=== PATIENT | female | born 1935 | race Caucasian/White ===

== ENCOUNTER 2016-07-04 11:26 | Inpatient (IN) | payer MEDICARE, BC, MEDICAID ==
[~2016-07-04] VITALS: Ht 160 cm; Wt 59.9 kg
--- OUTSIDE RECORDS SUMMARY | 2016-07-04 11:37 | XMS REPORT | Continuity of Care Document ---
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, WITHOUT MENTION OF HAVING ACHIEVED REMISSION 12/05/2011 W 585.4 CHRONIC KIDNEY DISEASE, STAGE IV (SEVERE) 12/05/2011 W 789.04 ABDOMINAL PAIN, LEFT LOWER QUADRANT 05/04/2013 Octaviano Schulz, Inessa W 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 05/04/2013 Octaviano Schulz, Inessa W 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 05/04/2013 Ocatviano Schulz, Inessa Delarosa 290.0 SENILE DEMENTIA, UNCOMPLICATED 05/04/2013 Octaviano Schulz, Inessa W 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 05/04/2013 Octaviano cShulz, Inessa W 290.0 SENILE DEMENTIA, UNCOMPLICATED 05/06/2013 Octaviano Schulz, Inessa Delarosa 290.0 SENILE DEMENTIA, UNCOMPLICATED 05/06/2013 Octaviaon Schulz, Inessa W 290.0 SENILE DEMENTIA, UNCOMPLICATED 06/08/2013 Octaviano Schulz, Inessa W 585.9 CHRONIC KIDNEY DISEASE, UNSPECIFIED 06/09/2013 TEO Trotter William W 789.0 ABDOMINAL PAIN 06/09/2013 TEO Trotter William W 789.0 ABDOMINAL PAIN 07/25/2013 TEO Trotter William W 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 07/25/2013 TEO Trotter William W 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 07/26/2013 TEO Trotter, Aime W 599.0 URINARY TRACT INFECTION, SITE NOT SPECIFIED 07/29/2013 TEO Trotter, Aime Delarosa 562.10 DIVERTICULOSIS OF COLON (WITHOUT MENTION OF HEMORRHAGE) 07/29/2013 TEO Trotter, Aime Delarosa 787.3 FLATULENCE, ERUCTATION, AND GAS PAIN 07/29/2013 TEO Trotter William W 789.07 ABDOMINAL PAIN, GENERALIZED 08/08/2014 TEO Trotter, Aime Delarosa 401.9 UNSPECIFIED ESSENTIAL HYPERTENSION 08/08/2014 TEO Trotter William W 401.9 UNSPECIFIED ESSENTIAL HYPERTENSION Procedures Results Test Result Range Basic Metabolic Panel - 05/06/13 09:34 glucose 145 mg/dl 70-110 Basic Metabolic Panel 18 mg/dL <23 Comp Metabolic Panel 29.0 see below > 60.0 Renal Panel 10.0 Ratio 7.0-25.0 Liver or Hepatic Panel 142 mmol/L 135- 146 Acetest 9.0 mg/dL 8.4-10.5 Creatinine QC. 1.8 mg/dL <1.3 Potassium 4.1 mmol/L 3.4-5.0 Chloride 105 mmol/L 98-108 ECO2 27 mmol/L 23-33 Anion Gap 14.1 mmol/L 10.0-18.0 Comp Metabolic Panel - 07/25/13 11:47 Lytes Panel 137 mg/dL 70-112 Basic Metabolic Panel 18 mg/dL <23 Comp Metabolic Panel 33.1 see below > 60.0 Renal Panel 11.3 Ratio 7.0-25.0 Liver or Hepatic Panel 142 mmol/L 135- 146 Acetest 9.1 mg/dL 8.4-10.5 BUN 6.8 g/dL 6.1-8.1 Creatinine 3.9 g/dL 3.3-4.8 Sodium 2.9 g/dL 1.1-4.7 Potassium 1.3 Ratio 0.7-4.5 CO2 14 U/L 0-40 Calcium 22 U/L 0-60 Phosphorus 89.0 U/L 40.0-140.0 Uric Acid 1.6 mg/dL 0.0-1.3 Creatinine QC. 1.6 mg/dL <1.3 Potassium 4.4 mmol/L 3.4-5.0 Chloride 106 mmol/L 98-108 ECO2 27 mmol/L 23-33 Anion Gap 13.4 mmol/L 10.0-18.0 CBC - 07/25/13 11:47 CBC 22.2 K/UL 4.1-10.9 WBC 162 K/UL 140-440 Platelet Count 92.5 FL 80.0-97.0 Manual Differential 32.1 pg 26.0-34.0 RBC 3.99 M/ul 4.20-6.30 HGB 12.8 g/dl 12.0-18.0 HCT 36.90 % 37.00-51.00 MCHC 34.8 g/dL 31.0-36.0 RDW 13.0 % 10.0-20.0 MPV 7.8 FL NEUT % 27.9 % 50.0-80.0 LYM % 66.7 % 25.0-50.0 MONO % 3.5 % 0.0-10.0 NEUT # 6.2 K/UL 2.0-8.0 LYM # 14.8 K/UL 1.0-5.0 MONO # 0.8 K/UL 0.1-1.0 EOS # 0.1 K/UL 0.0-0.4 EOS % 0.4 K/UL BASO # 0.3 K/UL 0.0-0.2 BASO % 1.5 K/UL Comp Metabolic Panel - 08/08/14 10:15 Lytes Panel 147 mg/dL 70-112 Basic Metabolic Panel 20 mg/dL <23 Comp Metabolic Panel 33.0 see below > 60.0 Renal Panel 12.5 Ratio 7.0-25.0 Liver or Hepatic Panel 140 mmol/L 135- 146 Acetest 8.8 mg/dL 8.4-10.5 BUN 6.7 g/dL 6.1-8.1 Creatinine 3.8 g/dL 3.3-4.8 Sodium 2.9 g/dL 1.1-4.7 Potassium 1.3 Ratio 0.7-4.5 CO2 22 U/L 0-40 Calcium 23 U/L 0-60 Phosphorus 85.0 U/L 40.0-140.0 Uric Acid 1.3 mg/dL 0.0-1.3 Creatinine QC. 1.6 mg/dL <1.3 Potassium 4.1 mmol/L 3.4-5.0 Chloride 105 mmol/L 98-108 ECO2 27 mmol/L 23-33 Anion Gap 12.1 mmol/L 10.0-18.0 CBC - 08/08/14 10:15 CBC 24.3 K/UL 4.1-10.9 WBC 142 K/UL 140-440 Platelet Count 89.3 FL 80.0-97.0 Manual Differential 32.2 pg 26.0-34.0 RBC 4.11 M/ul 4.20-6.30 HGB 13.2 g/dl 12.0-18.0 HCT 36.70 % 37.00-51.00 MCHC 36.0 g/dL 31.0-36.0 RDW 12.2 % 10.0-20.0 MPV 7.9 FL NEUT % 20.8 % 50.0-80.0 LYM % 74.5 % 25.0-50.0 MONO % 2.4 % 0.0-10.0 NEUT # 5.1 K/UL 2.0-8.0 LYM # 18.1 K/UL 1.0-5.0 MONO # 0.6 K/UL 0.1-1.0 EOS # 0.1 K/UL 0.0-0.4 EOS % 0.4 K/UL BASO # 0.5 K/UL 0.0-0.2 BASO % 1.9 K/UL Encounters ACCT No. Visit Date/Time Discharge Status Pt. Type Provider Facility Loc./Unit Complaint [id number] 07/03/2016 13:08:00 07/03/2016 23: 59:00 DIS Outpatient STALIN FLORES [id number] 06/13/2016 09:57:00 06/13/2016 23: 59:00 DIS Outpatient STALIN FLORES [id number] 06/11/2016 07:20:00 06/11/2016 23: 59:00 DIS Outpatient STALIN FLORES [id number] 06/04/2016 11:11:00 06/04/2016 23: 59:00 DIS Outpatient TEO Trotter William [id number] 05/22/2016 09:28:00 05/22/2016 23: 59:00 DIS Outpatient STALIN FLORES [id number] 05/21/2016 19:20:00 05/21/2016 21: 10:00 DIS Outpatient Royer Menjivar [id number] 03/28/2016 11:47:00 03/28/2016 23: 59:00 DIS Outpatient MARKSTALIN [id number] 03/13/2016 14:30:00 03/13/2016 16: 22:00 DIS Outpatient MARKSTALIN [id number] 01/01/2016 13:47:00 01/01/2016 13: 49:00 DIS Outpatient Elicia Cornejo Harley [id number] 01/01/2016 13:40:00 01/01/2016 13: 40:00 CAN Outpatient Elicia Cornejo Harley [id number] 10/11/2015 09:00:00 10/11/2015 09: 05:00 DIS Outpatient STALIN FLORES [id number] 06/22/2015 08:01:00 06/22/2015 23: 59:00 DIS Outpatient TEO Trotter William [id number] 02/08/2015 08:45:00 02/08/2015 23: 59:00 DIS Outpatient TEO Trotter William [id number] 08/08/2014 10:05:00 08/08/2014 23: 59:00 DIS Outpatient TEO Trotter William [id number] 07/26/2013 10:27:00 07/26/2013 23: 59:00 DIS Outpatient TEO Trotter William [id number] 07/25/2013 11:41:00 07/25/2013 23: 59:00 DIS Outpatient TEO Trotter William [id number] 06/09/2013 11:15:00 06/09/2013 23: 59:00 DIS Outpatient TEO Trotter William [id number] 05/06/2013 09:15:00 05/06/2013 23: 59:00 DIS Outpatient Octaviano Schulz, Inessa [id number] 05/04/2013 14:16:00 05/04/2013 23: 59:00 DIS Outpatient Octaviano Schulz Barbara-Jean [id number] 07/04/2016 08:14:00 ACT Outpatient STALIN FLORES [id number] 12/05/2011 10:19:00 Document Registration
[2016-07-04] MEDS ORDERED: LORA-204 PO (12:00)
[2016-07-04] MEDS ORDERED: VITA1TAB21 SL (12:00)
[2016-07-04] MEDS ORDERED: CITA40TA14 PO (12:00)
[2016-07-04] MEDS ORDERED: POLY119P3 PO ×2 (12:04→12:08)
[2016-07-04] MEDS ORDERED: QUET25TA PO ×2 (12:04→12:08)
[2016-07-04] MEDS ORDERED: MAG360OR92 PO (12:04)
[2016-07-04] MEDS ORDERED: LORA2VIA34 IM (12:04)
[2016-07-04] MEDS ORDERED: GUAI237L83 PO (12:08)
[2016-07-04] MEDS ORDERED: ACET-62 PO (12:08)
[2016-07-04] MEDS ORDERED: LORA1TAB3 PO (12:08)
--- OUTSIDE RECORDS SUMMARY | 2016-07-04 12:08 | XMS REPORT | Continuity of Care Document ---
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 Type Provider Facility Loc./Unit Complaint [id number] 07/03/2016 13:08:00 07/03/2016 23: 59:00 DIS Outpatient STALIN FLORES [id number] 06/13/2016 09:57:00 06/13/2016 23: 59:00 DIS Outpatient STALIN FLORES [id number] 06/11/2016 07:20:00 06/11/2016 23: 59:00 DIS Outpatient STALIN FLORES [id number] 06/04/2016 11:11:00 06/04/2016 23: 59:00 DIS Outpatient TEO Trotter William [id number] 05/22/2016 09:28:00 05/22/2016 23: 59:00 DIS Outpatient STALIN FLORES [id number] 05/21/2016 19:20:00 05/21/2016 21: 10:00 DIS Outpatient Royer Menjivar [id number] 03/28/2016 11:47:00 03/28/2016 23: 59:00 DIS Outpatient MARKSTAILN [id number] 03/13/2016 14:30:00 03/13/2016 16: 22:00 DIS Outpatient MARKSTALIN [id number] 01/01/2016 13:47:00 01/01/2016 13: 49:00 DIS Outpatient Elicia Cornejo Harley [id number] 01/01/2016 13:40:00 01/01/2016 13: 40:00 CAN Outpatient Elicia Cornejo Harley [id number] 10/11/2015 09:00:00 10/11/2015 09: 05:00 DIS Outpatient STALIN FLORES [id number] 06/22/2015 08:01:00 06/22/2015 23: 59:00 DIS Outpatient TEO Trotter William [id number] 02/08/2015 08:45:00 02/08/2015 23: 59:00 DIS Outpatient TEO Trotter William [id number] 08/08/2014 10:05:00 08/08/2014 23: 59:00 DIS Outpatient TEO Trotter William [id number] 07/26/2013 10:27:00 07/26/2013 23: 59:00 DIS Outpatient TEO Trotter William [id number] 07/25/2013 11:41:00 07/25/2013 23: 59:00 DIS Outpatient TEO Trotter William [id number] 06/09/2013 11:15:00 06/09/2013 23: 59:00 DIS Outpatient TEO Trotter William [id number] 05/06/2013 09:15:00 05/06/2013 23: 59:00 DIS Outpatient Octaviano Schulz, Inessa [id number] 05/04/2013 14:16:00 05/04/2013 23: 59:00 DIS Outpatient Octaviano Schulz Barbara-Jean [id number] 07/04/2016 08:14:00 ACT Outpatient STALIN FLORES [id number] 12/05/2011 10:19:00 Document Registration
[2016-07-04] MEDS ORDERED: VITAMIN B COMPLEX SL (12:10)
[2016-07-04] MEDS ORDERED: ZIPRASIDONE 20 MG IM PRN (12:15)
[2016-07-04 12:34] LABS: HCT - HEMATOCRIT 41.4 % (36-46); HGB - HEMOGLOBIN 13.6 GM/DL (12-16); MEAN CORPUSCULAR HGB 30.3 UUG (26-34); MEAN CORPUSCULAR HGB CONC(MCHC 32.9 GM/DL (31-37); MEAN CORPUSCULAR VOLUME 92.2 UM3 (80-100); MEAN PLATELET VOLUME 10.1 UM3 (9.4-12.4); RED BLOOD COUNT 4.49 M/MM3 (4.00-5.20)
[2016-07-04 12:45] LABS: ACETAMINOPHEN < 10 UG/ML (10-30); ALBUMIN 4.6 G/DL (3.5-5.0); ALBUMIN/GLOBULIN RATIO 1.9 RATIO (1.1-2.2); ALKALINE PHOSPHATASE 76 U/L (38-126); ALT (SGPT) 39 U/L (9-52); ANION GAP 14 MEQ/L (5-15); AST (SGOT) 30 U/L (14-36); BUN/CREATININE RATIO 12 RATIO (6-26); CALCIUM 9.9 MG/DL (8.4-10.2); CHLORIDE 108 MEQ/L (98-107); CO2 - CARBON DIOXIDE 24 MEQ/L (22-30); CREATININE 1.4 MG/DL (0.7-1.2); ETHANOL <10 MG/DL (<10); GLOMERULAR FILTRATION RATE 36; GLUCOSE 102 MG/DL (65-110); POTASSIUM 4.6 MEQ/L (3.6-5); SALICYLATE < 1.0 MG/DL (2-20); SODIUM 146 MEQ/L (134-144)
--- NOTE | 2016-07-04 12:45 | NUR ---
UPDATE PATIENT IS BECOMING MORE CALM AND COOPERATIVE. PATIENT REFUSES TO USE RESTROOM AT THIS TIME HOWEVER. RESTRAINTS REMOVED.
[2016-07-04 12:50] LABS: EOSINOPHILS # (MANUAL) 0.3 T/MM3 (0-0.5); LYMPHOCYTES # (MANUAL) 8.5 T/MM3 (1-4.8); METAMYELOCYTES # 0.2 T/MM3; MONOCYTES # (MANUAL) 0.7 T/MM3 (0-0.8); NEUTROPHILS #(MANUAL)-ABSOLUTE 7.3 T/MM3 (1.8-7.7); TOTAL CELLS COUNTED 100 %
--- NOTE | 2016-07-04 12:57 | NUR ---
RADIOLOGY RADIOLOGY AT BEDSIDE FOR PORTABLE CXR
--- NOTE | 2016-07-04 13:13 | NUR ---
UPDATE PATIENT LYING IN BED SLEEPING SOUNDLY, SITTER REMAINS AT BEDSIDE.
--- NOTE | 2016-07-04 13:19 | DI ---
Indication: ITS.REASON: ms changes PROCEDURE: CHEST 1 VIEW: Encounter: Initial Comparison: None FINDINGS: The lungs are clear. There is no abnormal airspace opacity, pleural effusion or pneumothorax identified. The heart size, pulmonary vasculature and mediastinum are within normal limits. No significant skeletal abnormality is seen. IMPRESSION: No acute cardiopulmonary abnormality. .
[2016-07-04 13:40] LABS: THYROID STIM HORMONE-TSH 3.55 MIU/L (0.47-4.68)
[2016-07-04 13:47] LABS: BLOOD, URINE NEGATIVE (NEGATIVE); COLOR,URINE YELLOW (YELLOW); LEUKOCYTE ESTERASE ,URINE NEGATIVE (NEGATIVE); NITRITE,URINE NEGATIVE (NEGATIVE); UROBILINOGEN,URINE 0.2 EU/DL (NORMAL)
[2016-07-04 13:57] LABS: AMPHETAMINE SCREEN,URINE NEGATIVE; BARBITURATE SCREEN,URINE NEGATIVE; BENZODIAZEPINES SCREEN,URINE POSITIVE; CANNABINOID SCREEN,URINE NEGATIVE; COCAINE SCREEN,URINE NEGATIVE; METHADONE SCREEN, URINE NEGATIVE; METHAMPHETAMINE SCREEN, URINE NEGATIVE; OPIATE SCREEN,URINE NEGATIVE; PHENCYCLIDINE SCREEN,URINE NEGATIVE; TRICYCLIC ANTIDEPRESSANT,URINE POSITIVE
--- NOTE | 2016-07-04 14:00 | NUR ---
PM[facility] UNABLE TO OBTAIN ACCURATE PAST MEDICAL HX D/T PATIENT MENTAL STATUS.
--- NOTE | 2016-07-04 14:03 | NUR ---
UPDATE PATIENT LYING IN BED RESTING QUIETLY/CALMLY. SITTER AT BEDSIDE.
[2016-07-04] MEDS ORDERED: HALOPERIDOL 5 MG/ML INJECTION IM ONE (14:30)
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
--- NOTE | 2016-07-04 15:00 | NUR ---
ADMIT PATIEN TAKEN TO [facility] VIA CART,STABLE. BELONGINGS WITH PATIENT.
--- NOTE | 2016-07-04 15:00 | NUR ---
ADMISSION Pt is an 81 year old female admitted to the [facility] room 195 from [facility] Pt was brought to the [facility] ED for medical clearance. Pt was accompanied onto the unit by 2 [facility] staff and was lethargic upon arrival. Pt had received PRN medications in the ED for her aggressive/combative behavior. Pt arrived dressed appropriately for conditions although her clothes nor her person were clean and her finger nails were over grown. Staff cut her nails on arrival and wanted to wait until she was more alert for her shower. Pt has no visible skin wounds upon assessment and no valuables on her person. Pt was asked why she thought that she was admitted to the unit, the patient was unable to respond but with minimal cussing at staff. Pt is currently in bed sleeping with side rails up x3 and bed alarm activated
[2016-07-04] MEDS ORDERED: HALOPERIDOL 5 MG/ML INJECTION IM PRN (16:00)
[2016-07-04] MEDS ORDERED: LORAZEPAM 1 MG TABLET PO PRN (16:00)
[2016-07-04] MEDS ORDERED: LORAZEPAM 2 MG/ML INJECTION IM PRN (16:00)
[2016-07-04] MEDS ORDERED: PRN ORDERS MC (16:00)
[2016-07-04 16:19] VITALS: BP 149/95; PULSE 64; RESP 16; TEMP 97.2; O2SAT 94
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
[2016-07-04 16:35] VITALS: RESP 16
[2016-07-04 17:42] VITALS: Ht 160 cm; Wt 59.9 kg
--- NOTE | 2016-07-04 18:07 | NUR ---
Smoking status Pt is a non smoker.
[2016-07-04 19:32] VITALS: PULSE 64; RESP 16; O2SAT 94
--- NOTE | 2016-07-04 20:15 | NUR ---
Bedtime/ Spit meds Pt assist x 2 to shower. Pt resistive but not combative while showering. Pt a pivot/transfer x 2 to wheelchair and then pivot/transfer to bed. Pt sleeping with bed alarm on and call light in reach. Pt spit out HS meds. Will continue to monitor.
[2016-07-04] MEDS: LORAZEPAM 1 MG TABLET PO SCH (21:00)
[2016-07-04] MEDS: QUETIAPINE 25 MG TABLET PO SCH (21:00)
[2016-07-04 22:10] VITALS: PULSE 64; RESP 16
[2016-07-04 22:26] VITALS: BP 162/83; PULSE 55; RESP 16; TEMP 96.9; O2SAT 98
--- NOTE | 2016-07-05 01:23 | NUR ---
Chart Check 24 hour chart check completed
--- NOTE | 2016-07-05 02:03 | NUR ---
past medical history See Past Medical History generations assessment for history done per papers faxed from [facility]. Pt is positive for chronic kidney disease, cerebrovascular accident, HTN, irritable bowel syndrome, dementia, chronic lymphocytic leukemia, sleep apnea, 1, para 1, cholecystectomy, right total knee, tonsillectomy and adenoidectomy.
[2016-07-05] MEDS: LORAZEPAM INTENSOL 1mg/0.5ml ORAL SOLUTION SL PRN (04:17)
--- NOTE | 2016-07-05 04:17 | NUR ---
PRN / bladder scan 630ml/ bladder scan order Pt given ativan intensol 1mg po at this time. Pt awake and restless, Pt hasn't voided since admission 1500 07/04. Pt bladder scanned and 630ml on scanner. Pt taken to bathroom with assist x 3, Pt pinching staff boob, and squeeze our hands and verbally aggressive stating, "Go away, I want my mom" Pt sarcastic, "You just go to the bathroom you pooper kedar steen." Pt to toilet and Pt unsteady and then sat on toilet but needed hand on shoulder to help Pt stay on toilet. Pt told many different ways to pee in the potty and Pt upregulated that she wouldn't relax to pee. Pt then standing in bathroom and hands taken off of Pt but Pt leaned up against wall and wouldn't go lay down or move. Pt then distracted by talking about her 4 kids and how busy she was. Able to get brief pulled up and in bed, Pt more down regulated when talking about her, but once in bed Pt up regulated again and attempting to call staff names. Pt bed alarm on and bed locked and low, and Pt left alone for 10 minutes, but still restless and uncomfortable. [place] text done about bladder, and order for bladder scan. Ativan given to help with less trauma before striaght cath and lab draw. Will continue to monitor.
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
--- NOTE | 2016-07-05 07:15 | NUR ---
Summary Pt went back to sleep after straight cath, and resting quietly. Pt slept 7.5 hours and continues to sleep. Pt allowed lab to draw blood. Ativan continues to be effective. Pt hasn't screamed at night except when changing her and touching her. Pt verbally and physically aggressive during cares and can self regulate better when not touched, but Pt very unsteady when standing. Will continue to monitor. Call light in reach. Bed locked and low. Bed alarm on.
[2016-07-05] MEDS: POLYETHYL.GLYCOL 3350 PACKET 17gm PO SCH (09:00)
[2016-07-05] MEDS: LORAZEPAM 1 MG TABLET PO SCH ×2 (09:00→21:24)
[2016-07-05] MEDS: VITAMIN B COMP + C TABLET PO SCH (09:00)
[2016-07-05] MEDS: QUETIAPINE 25 MG TABLET PO SCH (09:00)
[2016-07-05 10:41] VITALS: PULSE 72
--- NOTE | 2016-07-05 10:53 | NUR ---
pt refusing to get oob at this time. mumbles speech not appropriate to questions asked. pt turned to left side. self positioned to back again. will check again frequently
--- NOTE | 2016-07-05 11:15 | NUR ---
pts did call to check up on . requested to visit pt. tomorrow afternoon at some point. he states that he and his have been for 50years and he is very appreciative of the care we are giving her.
--- NOTE | 2016-07-05 11:46 | NUR ---
pt refusing VS. will not allow anyone to touch her and is combative to staff when touched. will attempt to get VS again
--- NOTE | 2016-07-05 13:27 | NUR ---
pt tearful. RNX2 with a BARREL DEDENTING MACHINE OPERATOR did assist pt. out of bed and to lunch. Pt was combative and stiff once. did follow directions at times. she is taking small amount of food with assistance at this time.
--- NOTE | 2016-07-05 14:38 | GENHPPDOC ---
[facility] 07/05/16 Start Time: 11:20 Stop Time: 12:00 >50% of this visit spent in counseling/coordination care. Chief Complaint: Aggression History of Present Illness Patient is an 81-year-old female who was admitted to [facility] [place] on 07/04/16 from her LTC facility in [place]. Patient's Chriss is DPOA ([phone]). Patient was recently placed in LTC due to progression of her dementia, previously residing with her . Facility reports over past 2 weeks patient has become increasingly agitated, combative and resistive with cares. She has not showered in over 3 weeks. She is verbally and physically aggressive , with limited verbal communication skills. No change in sleep or appetite reported. Patient received multiple PRNs in ED and was reportedly sedated last night on the unit. She did allow hygienic cares, lab draws, EKG etc. at that time. On interview today, patient is lying in bed and is restless, tugging at sheet, with significant tremor in hands bilaterally. She is easily tearful and cannot answer any questions meaningfully. Ox1 only. Patient did require straight cath for urine retention this AM and received Ativan 0.5mg prn prior. I cannot obtain further history of past psych history from patient at this time. Dementia: memory impairment, poor executive function., other (physical and verbal aggression, limited verbal ability) Past Medical History Unable to Obtain Due to: Clinical Condition Past Medical History Patient's Medical History: (1) CKD (chronic kidney disease), stage III (2) CVA (cerebral vascular accident) (3) Hypertension (4) Irritable bowel syndrome (5) Chronic lymphocytic leukemia (6) Sleep apnea (7) Dementia (8) Anxiety Surgical History Patient's Surgical History: Cholecystectomy. Right total knee replacement. Tonsillectomy and adenoidectomy Current Medications Home Meds Reported Medications [Vitamin B Complex] No Conflict Check, 1 ML SL DAILY 07/04/16 Acetaminophen (Acetaminophen) 500 Mg Tablet, 1000 MG PO Q6H Y for PAIN 07/04/16 Polyethylene Glycol 3350 (Miralax) 119 Gm Powder, 17 G PO DAILY Y for CONSTIPATION 07/04/16 Lorazepam (Lorazepam) 1 Mg Tablet, 1 TAB PO Q4H Y for AGITATION 07/04/16 Quetiapine Fumarate (Seroquel) 25 Mg Tablet, 25 MG PO BID 07/04/16 Lorazepam (Ativan) 2 Mg/1 Ml Vial, 1 MG IM DAILY Y for AGITATION 07/04/16 Quetiapine Fumarate (Seroquel) 25 Mg Tablet, 25 MG PO DAILY Y for AGITATION 07/04/16 Mag Hydrox/Al Hydrox/Simeth (Alum-Mag Hydroxide-Simeth Liq) 360 Ml Oral.susp, 15 -30 ML PO Q4H Y for PRN ORDERS 07/04/16 Polyethylene Glycol 3350 (Miralax) 119 Gm Powder, 17 G PO DAILY 07/04/16 Lorazepam (Ativan) 1 Mg Tablet, 1 MG PO BID TAKE @ 0700 & 1500 07/04/16 Citalopram Hydrobromide (Celexa) 40 Mg Tablet, 40 MG PO DAILY 07/04/16 Allergies: Coded Allergies: ARUNA Inhibitors (Verified Allergy, Unknown, 07/04/16) Family History Family History: Unknown, patient unable to provide. Vaccines Social History Smoking Status: Never smoker Substance Use Type: does not use Alcohol Intake: none Marital Status: Advance Directives: Yes DPOA for Healthcare Only Strengths: placement in place, family support Review of Systems Unable to Obtain ROS Due to: language barrier, dementia Psychiatric Psychiatric: emotional instability, irritability, memory impairment Generations Exam Vitals Vital Signs Date Time Temp Pulse Resp B/P Pulse Ox O2 Delivery O2 Flow Rate FiO2 07/04/16 22:26 96.9 55 16 162/83 98 Room Air Physical examination performed by the hospitalist. Height (Feet): 5 Height (Inches): 3.00 Mental Status Exam Muscle Strength/Tone: Normal Dressing: Casual Grooming: Poor Attitude: Combative Motor Activity: Tremors (significant in hands bilaterally), Restless Eye Contact: Poor Speech: Slowed Volume: Soft Rhythm: Mumbled Sensory: Alert Orientation: Disoriented to time, Disoriented to place, Disoriented to situation, Oriented to person Mood: Other (Patient unable to answer) Affect: Labile (tearful during brief interview) Rate of Thoughts: Delayed Thought Organization: Confused Associations: Illogical Abstract Reasoning: Impaired, concrete Computation: Poor Computation Thought Content: Other (unable to assess as patient cannot answer questions meaningfully) Perception/Psychotic: Other (unable to assess, does not appear to be responding to internal stimuli) Attention Span/Concentration: Inattentive Language: Naming Impaired Fund of Knowledge: Poor fund of knowledge Memory: Poor-immediate, Poor-recent, Poor-remote Suicidal Ideation: Other (No concern for suicidality) Homicidal Ideation: Other (Aggressive but no concern for homicidality) Insight: Impaired Judgment: Impaired Impulse Control: Poor Laboratory Tests Test 07/04/16 12:26 07/04/16 12:27 07/04/16 13:41 07/05/16 06:52 White Blood Count 17.0T/MM3 Red Blood Count 4.49M/MM3 Hemoglobin 13.6GM/DL Hematocrit 41.4% Mean Corpuscular Volume 92.2UM3 Mean Corpuscular Hemoglobin 30.3UUG Mean Corpuscular Hemoglobin Concent 32.9GM/DL RDW Standard Deviation 44.0FL Platelet Count 152T/MM3 Mean Platelet Volume 10.1UM3 Immature Granulocyte % (Auto) % Neutrophils (%) (Auto) % Lymphocytes (%) (Auto) % Monocytes (%) (Auto) % Eosinophils (%) (Auto) % Basophils (%) (Auto) % Absolute Immature Granulocyte (auto T/MM3 Absolute Neutrophils (auto) T/MM3 Absolute Lymphocytes (auto) T/MM3 Absolute Monocytes (auto) T/MM3 Absolute Eosinophils (auto) T/MM3 Absolute Basophils (auto) T/MM3 Neutrophils % (Manual) 43.0% Lymphocytes % (Manual) 50.0% Monocytes % (Manual) 4.0% Eosinophils % (Manual) 2.0% Metamyelocytes % 1.0% Absolute Neutrophils (Manual) 7.3T/MM3 Lymphocytes # (Manual) 8.5T/MM3 Monocytes # (Manual) 0.7T/MM3 Eosinophils # (Manual) 0.3T/MM3 Metamyelocytes # 0.2T/MM3 Red Cell Morphology Comment Normal Turbidity < 20 Sodium Level 146MEQ/L Potassium Level 4.6MEQ/L Chloride Level 108MEQ/L Carbon Dioxide Level 24MEQ/L Anion Gap 14MEQ/L Blood Urea Nitrogen 17.0MG/DL Creatinine 1.4MG/DL Glomerular Filtration Rate Calc 36 BUN/Creatinine Ratio 12RATIO Glucose Level 102MG/DL Calculated Osmolality 283MOSM/KG Calcium Level 9.9MG/DL Total Bilirubin 1.50MG/DL Icterus Index < 2 Aspartate Amino Transf (AST/SGOT) 30U/L Alanine Aminotransferase (ALT/SGPT) 39U/L Alkaline Phosphatase 76U/L Total Protein 7.0G/DL Albumin 4.6G/DL Globulin 2.4G/DL Albumin/Globulin Ratio 1.9RATIO Thyroid Stimulating Hormone (TSH) 3.55MIU/L Chemistry Specimen Hemolysis 36 Salicylates Level < 1.0MG/DL Acetaminophen Level < 10UG/ML Alcohol, Quantitative <10MG/DL Urine Collection Type Cleancatch-midstream Urine Color Yellow Urine Turbidity Clear Urine pH 6.0 Urine Specific [place] 1.015 Urine Protein Negative Urine Glucose (UA) Negative Urine Ketones Negative Urine Blood Negative Urine Nitrite Negative Urine Bilirubin Negative Urine Urobilinogen 0.2EU/DL Urine Leukocyte Esterase Negative Urinalysis Comment Microscopic not ind. Urine Opiates Screen NegativeNG/ML Urine Oxycodone Screen NegativeNG/ML Urine Methadone Screen NegativeNG/ML Urine Propoxyphene Screen NegativeNG/ML Urine Barbiturates Screen NegativeNG/ML Urine Tricyclic Antidepressants PositiveNG/ML Urine Phencyclidine Screen NegativeNG/ML Urine Amphetamines Screen NegativeNG/ML Urine Methamphetamines Screen NegativeNG/ML Urine Benzodiazepines Screen PositiveNG/ML Urine Cocaine Screen NegativeNG/ML Urine Cannabinoids Screen NegativeNG/ML Urine Drug Screen Confirmation Sent out Urine Drug Screen Information Pending Hemoglobin A1c 5.3% Triglycerides Level Pending Cholesterol Level Pending LDL Cholesterol, Calculated Pending VLDL Cholesterol Pending HDL Cholesterol Direct Pending Cholesterol/HDL Ratio Pending Vitamin B12 Level Pending Folate Pending Assessment and Plan (1) Major neurocognitive disorder Assessment: with behavioral disturbance (2) CVA (cerebral vascular accident) (3) Chronic lymphocytic leukemia (4) CKD (chronic kidney disease), stage III (5) Leukocytosis (6) Hypertension Evaluate and stabilize. Review labwork, imaging from admission. Obtain further collateral history from family. Maintain safety precautions. Will review medication list and make changes as appropriate after discussion with DPJEF. RUTHANN ESPINAL MD Jul 05, 2016 10:33
[2016-07-05 16:00] VITALS: BP 188/91; PULSE 95; RESP 16; TEMP 98.4; O2SAT 95
--- NOTE | 2016-07-05 16:00 | NUR ---
pt informed of lab order. New urinal placed in room. pt educated on procedure and to inform staff when he is able to go.
--- NOTE | 2016-07-05 16:02 | PNPDOC ---
Subjective Date DATE: 07/05/16 TIME: 15:54 Subjective Marine is seen today in follow up. She is very tearful, agitated. Crying, inconsolable. Cannot understand what she is upset about during our visit today. Chart is reviewed. She required straight cath- got 825ml out last night. Objective Vital Signs Vital signs Vital Signs Date Time Temp Pulse Resp B/P Pulse Ox O2 Delivery O2 Flow Rate FiO2 07/05/16 10:41 72 07/04/16 22:26 96.9 16 162/83 98 Room Air Height (Feet): 5 Height (Inches): 3.00 Weight (Kilograms): 63.000 General General Appearance: Uncooperative, Moderate Distress Neck (Brief) Neck: FOUND: midline, NOT FOUND: JVD, nuchal rigidity, spasm Respiratory (Brief) Respiratory: FOUND: clear all [place], equal bilaterally, NOT FOUND: rales, wheezes Cardiovascular (Brief) Cardiac: FOUND: regular rate, regular rhythm, NOT FOUND: pedal edema Abdomen (Brief) Abdominal: FOUND: BS normo active x4, soft, NOT FOUND: distended, tender Extremities (Brief) Extremity : Extremity Finding: NOT FOUND: edema Musculoskeletal (Brief) Musculoskeletal: NOT FOUND: spasm, tenderness Laboratory Laboratory Laboratory Tests 07/04/16 12:27 Laboratory Tests 07/04/16 12:26 Radiology CXR found to be negative. Sepsis Diagnostic Criteria Sepsis Confirmed/Suspected Infection: No Assessment & Plan Problems: (1) Leukocytosis Status: Acute (2) Aggressive behavior Status: Acute (3) Dementia Status: Chronic (4) Irritable bowel syndrome Status: Chronic (5) Chronic lymphocytic leukemia Status: Chronic (6) Hypertension Status: Chronic (7) Sleep apnea Status: Chronic (8) CVA (cerebral vascular accident) Status: Chronic (9) CKD (chronic kidney disease), stage III Status: Chronic (10) Anxiety Status: Acute (11) Urinary retention Status: Acute Plan/Intensity of Service 07/05/16- Patient continues agitated, inconsolable. Significant urinary retention last night. Will schedule bladder scan; straight cath PRN. If ongoing retention, place Ruiz. Assess KUB to make sure she does not have fecal retention that is causing her discomfort. Hx of CLL- likely cause of leukocytosis. Afebrile. Recent tx with Augmentin for URI. Recheck CBC in AM. Schedule tylenol for pain. BP remains elevated- continue to monitor at this time. May need to add medication if persists. Code Status Do Not Resuscitate Hospital Course Summary Disclaimer The hospital course summary below is not to be considered part of the above Progress Note. Hospital Course Summary 07/04/16 Agree with admission to [facility]. Complete workup per Dr. Workman. Leukocytosis without evidence of SIRS or active infection. Would not treat at this time. In addition, she also has a history of CLL, which can skew results. There was no documentation of active treatment in the chart. Follow-up CBC on Thursday. History of chronic kidney disease, baseline creatinine unknown. Will reassess on Thursday. History of hypertension, but she is not on any antihypertensives. Will monitor. Provide a safe and supportive environment. 07/05/16- Patient continues agitated, inconsolable. Significant urinary retention last night. Will schedule bladder scan; straight cath PRN. If ongoing retention, place Ruiz. Assess KUB to make sure she does not have fecal retention that is causing her discomfort. Hx of CLL- likely cause of leukocytosis. Afebrile. Recent tx with Augmentin for URI. Recheck CBC in AM. Schedule tylenol for pain. BP remains elevated- continue to monitor at this time. May need to add medication if persists. STEFFEN WANG SEAL SKINNER Jul 05, 2016 15:57
--- NOTE | 2016-07-05 16:50 | NUR ---
pt attempting to get out of chair. assisted by staff to bathroom to assist in urination. pt unable to void. bladder scanned at this time. 268ml in bladder. radiology at bedside for KUB. PLANT RELIABILITY ENGINEER notified. pt back to bed, states that her lower left abdomen hurts. pt will not stay in bed, back in chair and in group room.
[2016-07-05] MEDS ORDERED: FLEET PHOSPHO-SODA 133 ML ENEMA RECTALLY ONE (17:15)
[2016-07-05] MEDS ORDERED: CLONIDINE 0.1 MG TABLET PO ONE (17:30)
--- NOTE | 2016-07-05 17:46 | NUR ---
pt sitting up at table with other pts eating supper. no signs of anxiety. he has placed many spoons, and forks in his jacket through this shift, several salt and pepper packets and pudding. when asked about behavior pt. answers that he did not hear the question. no other concerns at this time
[2016-07-05] MEDS ORDERED: QUETIAPINE 25 MG TABLET PO SCH (21:00)
[2016-07-05] MEDS: SENNA + DOCUSATE TAB PO SCH (21:00)
[2016-07-05 21:15] VITALS: PULSE 64; PULSE 65
[2016-07-05 22:40] VITALS: BP_SYST 134; BP_SYST 154; BP_DIAS 64; BP_DIAS 67; PULSE 61; PULSE 65; RESP 16; TEMP 97; TEMP 98.2; O2SAT 95; O2SAT 96
--- NOTE | 2016-07-06 00:25 | NUR ---
Status/Bedtime Pt. is incontinent of a copious amount of bowel. Pt. is confused and grabs at dirty linen and holds it or swats at staff as they clean her. Pt. also showers with encouragement. Pt. is resting in bed with the bed alarm activated and SR up x2. Pt. asleep at 1930, awake at 2030 and asleep at 2215. Pt. is awake at 0500 and asleep at 0600.
--- NOTE | 2016-07-06 00:55 | NUR ---
Chart Check 24 hour chart check completed
--- NOTE | 2016-07-06 05:40 | NUR ---
Summary/Ruiz Pt. is bladder scanned for 472ml. Pt. is taken to the bathroom but is unable to void. 16Fr. Ruiz catheter is placed at 0515 due to retention of urine and Dr. gunter. Urine yellow/orange, color strong odor, 375ml output. Pt. responds well to treatment and is resting in bed with the bed alarm activated and SR up x2.
[2016-07-06 06:49] LABS: BASOPHILS % (AUTO) 0.2 % (0-2); EOSINOPHILS # (AUTO) 0.1 T/MM3 (0-0.5); EOSINOPHILS % (AUTO) 0.5 % (0-4); HGB - HEMOGLOBIN 12.4 GM/DL (12-16); IMMATURE GRANULOCYTE # (AUTO) 0.02 T/MM3 (0.00-0.03); IMMATURE GRANULOCYTE % (AUTO) 0.2 % (0.0-0.5); LYMPHOCYTES # (AUTO) 8.6 T/MM3 (1-4.8); LYMPHOCYTES % (AUTO) 64.3 % (23-45); MEAN CORPUSCULAR HGB 30.3 UUG (26-34); MEAN CORPUSCULAR HGB CONC(MCHC 32.6 GM/DL (31-37); MEAN CORPUSCULAR VOLUME 92.9 UM3 (80-100); MEAN PLATELET VOLUME 10.6 UM3 (9.4-12.4); MONOCYTES # (AUTO) 0.5 T/MM3 (0-0.8); NEUTROPHILS #(AUTO)-ABSOLUTE 4.1 T/MM3 (1.8-7.7); NEUTROPHILS % (AUTO) 30.8 % (33-66); RED BLOOD COUNT 4.09 M/MM3 (4.00-5.20); WBC - WHITE BLOOD COUNT 13.3 T/MM3 (4.5-11.0)
[2016-07-06 08:00] VITALS: BP 135/69; PULSE 76; RESP 16; TEMP 98.3; O2SAT 97
[2016-07-06] MEDS ORDERED: QUETIAPINE 50 MG TABLET PO SCH (09:00)
[2016-07-06] MEDS: POLYETHYL.GLYCOL 3350 PACKET 17gm PO SCH (11:59)
[2016-07-06] MEDS: LORAZEPAM 1 MG TABLET PO SCH ×2 (11:59→21:08)
[2016-07-06] MEDS: SENNA + DOCUSATE TAB PO SCH ×2 (12:00→21:08)
[2016-07-06] MEDS: VITAMIN B COMP + C TABLET PO SCH (12:11)
--- NOTE | 2016-07-06 13:32 | DI ---
Indication: ITS.REASON: Urinary retention PROCEDURE: KUB: Encounter: Initial Comparison: None Findings: The bowel gas pattern is nonobstructive and nonspecific. Gas is seen in nondilated small and large bowel to the level of the rectum. Moderate stool is seen throughout the colon. The bony structures are grossly unremarkable. Pelvic phleboliths. Degenerative change in the lower lumbar spine. Impression: Nonobstructive nonspecific bowel gas pattern. .
--- NOTE | 2016-07-06 15:55 | GENPN ---
Rodolfo Subjective Date DATE: 07/06/16 TIME: 09:58 Subjective/Severity of Illness Medications Current Medications Medications (Trade) Dose Ordered Sig/Carlie Start Time Stop Time Status Last Admin Dose Admin Ziprasidone (Geodon) 10 mg Q2HR PRN 07/04/16 12:15 07/04/16 19:54 DC 07/04/16 12:11 10 MG Citalopram Hydrobromide (Celexa) 40 mg DAILY 07/05/16 09:00 07/05/16 09:00 40 MG Lorazepam (Ativan) 1 mg BID 07/04/16 21:00 07/05/16 21:24 1 MG Polyethylene Glycol (Miralax) 17 g DAILY 07/05/16 09:00 Quetiapine Fumarate (Seroquel) 25 mg BID 07/04/16 21:00 07/05/16 16:12 DC 07/05/16 09:00 25 MG Vitamin B Complex (Total B + C) 1 tab DAILY 07/05/16 09:00 07/05/16 09:00 1 TAB Miscellaneous Medication (May use PRN orders) 1 PRN PRN 07/04/16 16:00 Haloperidol (Haldol) 1 mg Q6H PRN 07/04/16 16:00 Lorazepam (Ativan) 1 mg Q6H PRN 07/04/16 16:00 Lorazepam (Ativan) 1 mg Q6H PRN 07/04/16 16:00 Haloperidol Lactate (Haldol 5 Mg/ml Inj) 1 mg Q6H PRN 07/04/16 16:00 Lorazepam (Ativan Intensol) 1 mg Q6H PRN 07/05/16 04:15 07/05/16 04:17 1 MG Quetiapine Fumarate (Seroquel) 50 mg BID 07/05/16 21:00 07/06/16 06:14 DC 07/05/16 21:00 50 MG Senna/Docusate Sodium (Senna Plus) 2 tab BID 07/05/16 21:00 Quetiapine Fumarate (Seroquel) 50 mg BID 07/06/16 09:00 Subjective Patient seen and chart reviewed. Patient is lying in bed on approach, tearful, tremulous and disorganized, unable to verbalize a meaningful response to interview questions. Per staff, patient has been confused and swatting at staff with cares, behaving similarly to above. Patient continues to have urinary retention requiring straight cath. WBC slightly decreased this AM. No psychotropic PRNs required in the past 24 hours. VSS. Start Time: 11:00 Stop Time: 11:20 Care >50% of this visit spent in counseling/coordination care. [facility] Exam Vitals Vital Signs Date Time Temp Pulse Resp B/P Pulse Ox O2 Delivery O2 Flow Rate FiO2 07/05/16 22:40 97.0 65 16 154/64 95 Room Air Physical examination performed by the hospitalist. Height (Feet): 5 Height (Inches): 3.00 Mental Status Exam Muscle Strength/Tone: Weak Dressing: Casual Grooming: Poor Attitude: Uncooperative Motor Activity: Retardation, Tremors Eye Contact: Poor Speech: Slowed Volume: Soft Rhythm: Mumbled Sensory: Confused Orientation: Disoriented to time, Disoriented to place, Disoriented to situation, Oriented to person Mood: Other (Patient unable to answer) Affect: Other (Tearful, distraught) Rate of Thoughts: Delayed Thought Organization: Confused Associations: Illogical Abstract Reasoning: Impaired, concrete Thought Content: Other (Unable to fully assess, answers out of context to question) Perception/Psychotic: Psychotic (reportedly) Attention Span/Concentration: Inattentive Language: Naming Impaired Fund of Knowledge: Poor fund of knowledge Memory: Poor-immediate, Poor-recent, Poor-remote Suicidal Ideation: Other (Unable to fully assess as patient cannot answer) Homicidal Ideation: None Insight: Impaired Judgment: Impaired Impulse Control: Poor Laboratory Tests Test 07/06/16 05:47 White Blood Count 13.3T/MM3 Red Blood Count 4.09M/MM3 Hemoglobin 12.4GM/DL Hematocrit 38.0% Mean Corpuscular Volume 92.9UM3 Mean Corpuscular Hemoglobin 30.3UUG Mean Corpuscular Hemoglobin Concent 32.6GM/DL RDW Standard Deviation 44.0FL Platelet Count 133T/MM3 Mean Platelet Volume 10.6UM3 Immature Granulocyte % (Auto) 0.2% Neutrophils (%) (Auto) 30.8% Lymphocytes (%) (Auto) 64.3% Monocytes (%) (Auto) 4.0% Eosinophils (%) (Auto) 0.5% Basophils (%) (Auto) 0.2% Absolute Immature Granulocyte (auto 0.02T/MM3 Absolute Neutrophils (auto) 4.1T/MM3 Absolute Lymphocytes (auto) 8.6T/MM3 Absolute Monocytes (auto) 0.5T/MM3 Absolute Eosinophils (auto) 0.1T/MM3 Absolute Basophils (auto) 0.0T/MM3 Assessment and Plan (1) Major neurocognitive disorder Assessment: with behavioral disturbance 07/06/16: Discontinue Seroquel due to concerns of urinary retention; start Risperdal 0.25mg PO BID alternatively. Discussed this with /DPOA, who is in agreement with plan after discussion of risks/benefits. (2) CVA (cerebral vascular accident) (3) Chronic lymphocytic leukemia (4) CKD (chronic kidney disease), stage III (5) Leukocytosis (6) Hypertension RUTHANN ESPINAL MD Jul 06, 2016 09:58
[2016-07-06 16:00] VITALS: RESP 16
--- NOTE | 2016-07-06 18:03 | NUR ---
SHIFT SUMMARY 7A-7P Pt got up at 1130 this am. She got dressed with assistance and cares were given without any behaviors. She then came out to eat her lunch without any problems. She sat in day room most of afternoon until around 4 when she wanted to lay down. She was taken to the restroom 3 times between when she got up and around 4. 2 times without any relief. She does have a Ruiz see charting for output. She did have a bm as well today. Pt was laughing and smiling in day room with staff. She is currently resting with eyes closed in room.
[2016-07-06 20:27] VITALS: BP 144/76; PULSE 66; RESP 18; TEMP 98.4; O2SAT 91
[2016-07-06] MEDS: RISPERIDONE 0.25 MG TABLET PO SCH (21:08)
--- NOTE | 2016-07-06 22:52 | NUR ---
status pt laying in bed when this nurse assumes cares. alert and oriented x2. pleasant and cooperative. compliant with hs medication
--- NOTE | 2016-07-07 00:35 | NUR ---
Bedtime Noted in observation record; pt. went to bed and has been sleeping since 2014. Bed alarm. No distress noted.
--- NOTE | 2016-07-07 00:35 | NUR ---
Chart Check 24 hour chart check completed
[2016-07-07 03:14] LABS: FOLATE 14.9 NG/ML (2.76-20)
--- NOTE | 2016-07-07 06:17 | NUR ---
Sleep Slept well overnight. Repositioned in bed for comfort. Ruiz draining luke color urine; 150ml since MN.
[2016-07-07 06:34] VITALS: BP 138/69; PULSE 60; RESP 16; TEMP 97.9; O2SAT 94
[2016-07-07 08:00] VITALS: BP 138/69; PULSE 60; RESP 16; TEMP 97.9; O2SAT 94
--- NOTE | 2016-07-07 09:00 | NUR ---
SLEEP 11.25 Hours Pt went to bed at 1600 last night and awoke at 0845. Pt slept a total of 11.25 hours as documented on the 15 minute observation forms.
[2016-07-07] MEDS: RISPERIDONE 0.25 MG TABLET PO SCH ×2 (12:06→20:30)
[2016-07-07] MEDS: LORAZEPAM 1 MG TABLET PO SCH ×2 (12:06→20:30)
[2016-07-07] MEDS: VITAMIN B COMP + C TABLET PO SCH (12:06)
[2016-07-07] MEDS: POLYETHYL.GLYCOL 3350 PACKET 17gm PO SCH (12:06)
[2016-07-07] MEDS: SENNA + DOCUSATE TAB PO SCH ×2 (12:06→20:30)
--- NOTE | 2016-07-07 13:40 | PNPDOC ---
Subjective Date DATE: 07/07/16 TIME: 13:32 Subjective Marine was sobbing into her hands, lying in bed. She said something about her brother, but I could not understand her words. She just kept crying. I asked her if she wanted to hold her baby, which was lying right next to her, and she took her in her arms, and this seemed to calm her down. Soon, she started talking to her doll, and I was able to understand her saying "pretty little daughter." She was unable to answer any of my questions reliably. Objective Vital Signs Vital signs Vital Signs Date Time Temp Pulse Resp B/P Pulse Ox O2 Delivery O2 Flow Rate FiO2 07/07/16 08:00 97.9 60 16 138/69 94 Room Air Height (Feet): 5 Height (Inches): 3.00 Weight (Kilograms): 63.000 General General Appearance: Mild Distress Eyes (Brief) Eyes: NOT FOUND: scleral icterus Respiratory (Brief) Respiratory: FOUND: clear all [place], equal bilaterally Cardiovascular (Brief) Cardiac: FOUND: regular rate, regular rhythm Abdomen (Brief) Abdominal: FOUND: BS normo active x4, soft Extremities (Brief) Extremity : Side: Bilateral Extremity: leg Extremity Finding: NOT FOUND: edema Musculoskeletal (Brief) Musculoskeletal: NOT FOUND: tenderness Integumentary (Brief) Integumentary: FOUND: dry, warm Psychiatric (Brief) Psychiatric: FOUND: alert (x1) Laboratory Laboratory Laboratory Tests 07/06/16 05:47 Sepsis Diagnostic Criteria Sepsis Confirmed/Suspected Infection: No Assessment & Plan Problems: (1) Leukocytosis Status: Acute (2) Aggressive behavior Status: Acute (3) Dementia Status: Chronic (4) Irritable bowel syndrome Status: Chronic (5) Chronic lymphocytic leukemia Status: Chronic (6) Hypertension Status: Chronic (7) Sleep apnea Status: Chronic (8) CVA (cerebral vascular accident) Status: Chronic (9) CKD (chronic kidney disease), stage III Status: Chronic (10) Anxiety Status: Acute (11) Urinary retention Status: Acute Assessment & Plan: Ruiz inserted on 07/06/16 Plan/Intensity of Service Ruiz catheter was inserted on 07/06/16 for retention. Urinalysis on 07/04/16 was unremarkable. Leukocytosis has improved, down to 13.3. KUB showed a moderate stool burden. She large soft-liquid bowel movements on Psychiatric progress notes reviewed: Discontinued Seroquel on 07/06/16 due to urinary retention; started Risperdal 0.25mg PO BID. Code Status Do Not Resuscitate Hospital Course Summary Disclaimer The hospital course summary below is not to be considered part of the above Progress Note. Hospital Course Summary 07/04/16 Agree with admission to [facility]. Complete workup per Dr. Workman. Leukocytosis without evidence of SIRS or active infection. Would not treat at this time. In addition, she also has a history of CLL, which can skew results. There was no documentation of active treatment in the chart. Follow-up CBC on Thursday. History of chronic kidney disease, baseline creatinine unknown. Will reassess on Thursday. History of hypertension, but she is not on any antihypertensives. Will monitor. Provide a safe and supportive environment. 07/05/16- Patient continues agitated, inconsolable. Significant urinary retention last night. Will schedule bladder scan; straight cath PRN. If ongoing retention, place Ruiz. Assess KUB to make sure she does not have fecal retention that is causing her discomfort. Hx of CLL- likely cause of leukocytosis. Afebrile. Recent tx with Augmentin for URI. Recheck CBC in AM. Schedule tylenol for pain. BP remains elevated- continue to monitor at this time. May need to add medication if persists. 07/07/16 Ruiz catheter was inserted on 07/06/16 for retention. Urinalysis on 07/04/16 was unremarkable. Leukocytosis has improved, down to 13.3. KUB showed a moderate stool burden. She large soft-liquid bowel movements on Psychiatric progress notes reviewed: Discontinued Seroquel on 07/06/16 due to urinary retention; started Risperdal 0.25mg PO BID. ASHLEY BEY SPECIAL EDUCATION PRESCHOOL TEACHER July 07, 2016 13:36
[2016-07-07 14:02] LABS: HCT - HEMATOCRIT 39.8 % (36-46); HGB - HEMOGLOBIN 13.2 GM/DL (12-16); MEAN CORPUSCULAR HGB 30.5 UUG (26-34); MEAN CORPUSCULAR HGB CONC(MCHC 33.2 GM/DL (31-37); MEAN CORPUSCULAR VOLUME 91.9 UM3 (80-100); MEAN PLATELET VOLUME 10.3 UM3 (9.4-12.4); RED BLOOD COUNT 4.33 M/MM3 (4.00-5.20)
[2016-07-07 14:10] LABS: ANION GAP 13 MEQ/L (5-15); BUN/CREATININE RATIO 18 RATIO (6-26); CALCIUM 9.6 MG/DL (8.4-10.2); CHLORIDE 107 MEQ/L (98-107); CO2 - CARBON DIOXIDE 22 MEQ/L (22-30); CREATININE 1.2 MG/DL (0.7-1.2); GLOMERULAR FILTRATION RATE 43; GLUCOSE 182 MG/DL (65-110); POTASSIUM 3.8 MEQ/L (3.6-5); SODIUM 142 MEQ/L (134-144)
[2016-07-07 14:18] LABS: LYMPHOCYTES # (MANUAL) 9.7 T/MM3 (1-4.8); MONOCYTES # (MANUAL) 0.2 T/MM3 (0-0.8); NEUTROPHILS #(MANUAL)-ABSOLUTE 7.1 T/MM3 (1.8-7.7); TOTAL CELLS COUNTED 100 %
--- NOTE | 2016-07-07 14:29 | NUR ---
DRAWING PRESS OPERATOR -- PSH/DPOA-HC Pt's family were visiting from [place] during this assessment. Daughter, Ann (from [place]) and , [id number] (from [place]) are assisting pt with lunch. Pt is not able to answer questions reliably because of disease. is able to answer most questions and daughter will fill in the remainder. Pt is only oriented x1. She is not able to recognize her and referred to her daughter as her sister but could not recall her sister's name. and daughter drove up for the day which is about a [address]. Chriss states he would like to come and visit daily. SW encouraged him not to do that at this time. Chriss moved the pt into the SNF in [place] 4 mos ago but spends 12 hours per day at the facility. SHANA educated him that it was not healthy for him to do that. SHANA told him that he needs to take care of him to be able to take care of her and also discussed with the that his health is important. He feels as though he is abandoning her and feels guilty for leaving her. They have been for 50 years and have 3 children. Chriss states his 2 sons are in the medical field and they have both told him that he is spending too much time with the pt. SHANA educated that many times caregivers actually before the pt because they are stressed. During our visit, Chriss became quite upset and anxious. At that time, he pulled out a bottle and said "this will calm me down". He has medication to assist with his anxiety. SHANA did give family information on a couple of home pluses that are about 1 hour from the 's home. SHANA explained that he is not giving the facility a chance to take care of her because he is there all the time. Family both expressed that they understand and Chriss states he will try to limit. SHANA also suggested that Chriss does not come back to visit pt until D/C because he needs a break. Daughter agreed. Pt is a DNR and will D/C back to the SNF in [place] where she came from prior to D/C.
--- NOTE | 2016-07-07 15:28 | NUR ---
Status Pt was cooperative with assessment this morning but began to become agitated (yelling and swatting) when attempting to get her out of the bed. Pt slept through breakfast and woke up around lunch time. Pt took her medications crushed in ice cream and carries a baby doll with her for comfort. Pt was taken to the restroom and pt began to pull at her catheter, yelling " i want it gone you son of a bitch, i will kick your ass" staff moved her hands away from the catheter and down regulated the patient by explaining that she needs to leave it in for right now and that we are only here to help her get better. We then got her dressed and out to the day room. No PRNs were given and pt is currently in the day room watching television.
[2016-07-07 16:00] VITALS: BP 149/72; PULSE 69; RESP 16; TEMP 97.8; O2SAT 95
--- NOTE | 2016-07-07 16:19 | GENPN ---
Rodolfo Subjective Date DATE: 07/07/16 TIME: 16:03 Subjective/Severity of Illness Medications Current Medications Medications (Trade) Dose Ordered Sig/Carlie Start Time Stop Time Status Last Admin Dose Admin Ziprasidone (Geodon) 10 mg Q2HR PRN 07/04/16 12:15 07/04/16 19:54 DC 07/04/16 12:11 10 MG Citalopram Hydrobromide (Celexa) 40 mg DAILY 07/05/16 09:00 07/07/16 12:06 40 MG Lorazepam (Ativan) 1 mg BID 07/04/16 21:00 07/07/16 12:06 1 MG Polyethylene Glycol (Miralax) 17 g DAILY 07/05/16 09:00 07/07/16 12:06 17 G Quetiapine Fumarate (Seroquel) 25 mg BID 07/04/16 21:00 07/05/16 16:12 DC 07/05/16 09:00 25 MG Vitamin B Complex (Total B + C) 1 tab DAILY 07/05/16 09:00 07/07/16 12:06 1 TAB Miscellaneous Medication (May use PRN orders) 1 PRN PRN 07/04/16 16:00 Haloperidol (Haldol) 1 mg Q6H PRN 07/04/16 16:00 Lorazepam (Ativan) 1 mg Q6H PRN 07/04/16 16:00 Lorazepam (Ativan) 1 mg Q6H PRN 07/04/16 16:00 Haloperidol Lactate (Haldol 5 Mg/ml Inj) 1 mg Q6H PRN 07/04/16 16:00 Lorazepam (Ativan Intensol) 1 mg Q6H PRN 07/05/16 04:15 07/05/16 04:17 1 MG Quetiapine Fumarate (Seroquel) 50 mg BID 07/05/16 21:00 07/06/16 06:14 DC 07/05/16 21:00 50 MG Senna/Docusate Sodium (Senna Plus) 2 tab BID 07/05/16 21:00 07/07/16 12:06 2 TAB Quetiapine Fumarate (Seroquel) 50 mg BID 07/06/16 09:00 07/06/16 10:39 DC Risperidone (Risperdal) 0.25 mg BID 07/06/16 21:00 07/07/16 12:06 0.25 MG Subjective Patient was recently placed in LTC due to progression of her dementia, previously residing with her . Facility reports over past 2 weeks patient has become increasingly agitated, combative and resistive with cares. She has not showered in over 3 weeks. She is verbally and physically aggressive , with limited verbal communication skills. Today patient was seen and chart reviewed. Patient is lying in bed on approach , tearful and clutching a doll. Per staff, patient has been confused and agitated. Patient continues to have urinary retention requiring straight cath. She is on Celexa 40mg and Risperidone 0.5mg BID. No acute or chronic EPS noted. Time of Service: :30 Start Time: :30 Stop Time: :45 Care >50% of this visit spent in counseling/coordination care. [facility] Exam Vitals Vital Signs Date Time Temp Pulse Resp B/P Pulse Ox O2 Delivery O2 Flow Rate FiO2 07/07/16 08:00 97.9 60 16 138/69 94 Room Air Physical examination performed by the hospitalist. Height (Feet): 5 Height (Inches): 3.00 Mental Status Exam Muscle Strength/Tone: Weak Dressing: Casual Grooming: Fair Attitude: Suspicious Motor Activity: Fidgety Eye Contact: Poor Speech: Slowed Volume: Soft Rhythm: Mumbled Sensory: Alert Orientation: Disoriented to place, Disoriented to situation Mood: Anxious, Tearful Affect: Restricted Rate of Thoughts: Delayed Associations: Loose-associations Abstract Reasoning: Impaired, concrete Computation: Poor Computation Attention Span/Concentration: Short Span Language: Naming Impaired Fund of Knowledge: Poor fund of knowledge Memory: Poor-immediate, Poor-recent Suicidal Ideation: None Homicidal Ideation: None Insight: Poor Judgment: Poor Impulse Control: Poor Laboratory Tests Test 07/07/16 13:44 07/07/16 15:58 White Blood Count 17.0T/MM3 Red Blood Count 4.33M/MM3 Hemoglobin 13.2GM/DL Hematocrit 39.8% Mean Corpuscular Volume 91.9UM3 Mean Corpuscular Hemoglobin 30.5UUG Mean Corpuscular Hemoglobin Concent 33.2GM/DL RDW Standard Deviation 43.6FL Platelet Count 124T/MM3 Mean Platelet Volume 10.3UM3 Immature Granulocyte % (Auto) % Neutrophils (%) (Auto) % Lymphocytes (%) (Auto) % Monocytes (%) (Auto) % Eosinophils (%) (Auto) % Basophils (%) (Auto) % Absolute Immature Granulocyte (auto T/MM3 Absolute Neutrophils (auto) T/MM3 Absolute Lymphocytes (auto) T/MM3 Absolute Monocytes (auto) T/MM3 Absolute Eosinophils (auto) T/MM3 Absolute Basophils (auto) T/MM3 Neutrophils % (Manual) 42.0% Lymphocytes % (Manual) 57.0% Monocytes % (Manual) 1.0% Absolute Neutrophils (Manual) 7.1T/MM3 Lymphocytes # (Manual) 9.7T/MM3 Monocytes # (Manual) 0.2T/MM3 Red Cell Morphology Comment Normal Turbidity < 20 Sodium Level 142MEQ/L Potassium Level 3.8MEQ/L Chloride Level 107MEQ/L Carbon Dioxide Level 22MEQ/L Anion Gap 13MEQ/L Blood Urea Nitrogen 22.0MG/DL Creatinine 1.2MG/DL Glomerular Filtration Rate Calc 43 BUN/Creatinine Ratio 18RATIO Glucose Level 182MG/DL Calculated Osmolality 281MOSM/KG Calcium Level 9.6MG/DL Icterus Index < 2 Chemistry Specimen Hemolysis < 15 Lab Scanned Report REFERENCE [id number] Assessment and Plan (1) Major neurocognitive disorder Assessment: with behavioral disturbance 07/06/16: Discontinue Seroquel due to concerns of urinary retention; start Risperdal 0.25mg PO BID alternatively. Discussed this with /DPOA, who is in agreement with plan after discussion of risks/benefits. 07/07/16: Cont current medications (2) CVA (cerebral vascular accident) (3) Chronic lymphocytic leukemia (4) CKD (chronic kidney disease), stage III (5) Leukocytosis (6) Hypertension JOHN TARANGO MD July 07, 2016 16:06
--- NOTE | 2016-07-07 16:24 | NUR ---
BEATRICE BARRON SPOKE WITH DEONTE FROM [facility]. CM EXPLAINED ROLE AND PROVIDED CONTACT INFORMATION. DEONTE EXPLAINED THAT SHE IS NEW AND WILL FOLLOWUP WITH TEAM REGARDING MENTAL HEALTH FOLLOW UP AND TRANSPORTATION AND CONTACT CM TOMORROW. CM ATTEMPTED TO CONTACT RAMÓN SPOUSE BUT NO VM.
--- NOTE | 2016-07-07 18:28 | NUR ---
Summary Pt has been in the day room since this afternoon. Pt has been very calm and when asked a question she responds appropriately. Pt only ate bites for dinner and had very little to drink. Pt had moments when she would cry and she was unable to explain why she was crying. Pt received no PRN medications and had complaints of pain in her left leg but stated that she did not want any medication for the pain. Pt is currently sitting in the day room with chair alarm activated with staff present.
--- NOTE | 2016-07-07 22:13 | NUR ---
SUMMARY PATIENT HAS BEEN SITTING IN THE DAYROOM MOST OF THE EVENING WATCHING TV. SHE CONTINUES TO BE CONFUSED AND LABILE AT TIMES. SHE TOOK HER MEDICATIONS CRUSHED IN ICE CREAM BUT REQUIRED INSISTENCE TO TAKE. PATIENT AT TIMES C/O PAIN IN HER BLE BUT THEN FORGETS AND WHEN ASKED AGAIN SHE STATES SHE DOESN'T. NO AGGRESSIVE BEHAVIORS NOTED THIS EVENING. NO PRN'S GIVEN OF NOW. PATIENT CONTINUED TO SIT IN THE DAYROOM AT END OF SHIFT.
[2016-07-08 00:58] LABS: VLDL CHOLESTEROL 9.8 MG/DL (0-28)
[2016-07-08 01:15] VITALS: BP 130/86; PULSE 60; RESP 18; TEMP 97.4; O2SAT 94
[2016-07-08] MEDS: ACETAMINOPHEN 325 MG TABLET PO PRN ×2 (04:32→17:39)
--- NOTE | 2016-07-08 06:55 | NUR ---
Chart Check 24 hour chart check completed
--- NOTE | 2016-07-08 07:47 | NUR ---
Bedtime Pt. is in bed at 2300. Pt. is asleep at 2315 to 0145. Pt. is awake at 0200 and has slept short periods and awake again most of the rest of the shift.
--- NOTE | 2016-07-08 07:51 | NUR ---
Summary Pt. is in the dayroom on approach. Pt. transfers with 2 person assist. Pt. needs significant cueing to complete tasks. Pt. grimaces and groans periodically. Pt. will complain of pain to SIGN PAINTER HELPER and when followed up on by this RN denies being in pain. Attempts made to give tylenol 650mg crushed in pudding. Pt. did not want to take the pudding stating, "I just ate." This RN was able to get pt. to take some of the medication. Pt. only takes sips of fluids when offered. Pt. continues to be restless and talks to herself or her baby doll. Pt. can be demanding and angry at times. Pt. does swat at staff when completing hygiene cares when removing clothes. Pt. needs time and cueing to allow staff to assist in completing cares. Pt. has 350cc of dark cloudy luke urine this shift. Pt. does refuse shower. Pt. is resting in bed with the bed alarm activated and SR up x2. Addendum: 07/08/16 at 0814 by MAGGIE GARCIA RN No behavioral prn medications given this shift.
[2016-07-08 08:00] VITALS: BP 146/80; PULSE 82; RESP 16; TEMP 98.2; O2SAT 95
[2016-07-08] MEDS: SENNA + DOCUSATE TAB PO SCH ×2 (08:23→17:44)
[2016-07-08] MEDS: VITAMIN B COMP + C TABLET PO SCH (08:23)
[2016-07-08] MEDS: LORAZEPAM 1 MG TABLET PO SCH (08:23)
[2016-07-08] MEDS: POLYETHYL.GLYCOL 3350 PACKET 17gm PO SCH (08:23)
[2016-07-08] MEDS: RISPERIDONE 0.25 MG TABLET PO SCH ×2 (08:23→17:43)
--- NOTE | 2016-07-08 09:00 | NUR ---
SLEEP 3.25 Hours Pt went to bed at 2300 last night and awoke at 0800. Pt slept a total of 3.25 hours as documented on the 15 minute observation forms.
[2016-07-08 10:49] LABS: LDL CHOLESTEROL,CALCULATED 97.2 (66-159); RISK FACTOR 3.1 RATIO (0-4.0)
--- NOTE | 2016-07-08 11:18 | NUR ---
CM CM SPOKE WITH DEONTE NURSE'S ASSISTANT FROM [facility] AND SHE STATES THAT THEY WILL TRANSP[place] [facility] [place] DEONTE ALSO GAVE CM PLACES THAT THEY USE FOR MENTAL HEALTH FOLLOW UP. PT WILL USE [facility] FOR MENTAL HEALTH FOLLOW UP. DEONTE IS AWARE TO CONTACT CM IF NEEDS ARISE.
--- NOTE | 2016-07-08 14:02 | NUR ---
STATUS PT was cooperative with assessment and cares today. She is still resistive with medications even when crushed in pudding. We received a call from the patients and as we were updating him on the patients current situation he stated that she would take her medications in a little bit of cranberry juice. Pt has not had any aggressive behaviors so far this shift. Pt is currently in the day room watching television.
[2016-07-08 16:17] VITALS: BP 129/76; PULSE 71; RESP 16; TEMP 97.1; O2SAT 97
[2016-07-08] MEDS: LORAZEPAM 0.5 MG TABLET PO SCH ×2 (17:43→17:44)
--- NOTE | 2016-07-08 17:57 | NUR ---
Summary Pt has been in the day room and dining room the entire shift. Pt has been calm and only acts out if we attempt to move her to quickly. Pt received Tylenol 650mg @ 1739 crushed in ice cream for complaints of pain in her left leg. Pt is currently sitting in the day room with chair alarm activated with staff present.
--- NOTE | 2016-07-08 19:14 | GENPN ---
[facility] Subjective Date DATE: 07/08/16 TIME: 19:00 Subjective/Severity of Illness Medications Current Medications Medications (Trade) Dose Ordered Sig/Carlie Start Time Stop Time Status Last Admin Dose Admin Ziprasidone (Geodon) 10 mg Q2HR PRN 07/04/16 12:15 07/04/16 19:54 DC 07/04/16 12:11 10 MG Citalopram Hydrobromide (Celexa) 40 mg DAILY 07/05/16 09:00 07/08/16 08:23 40 MG Lorazepam (Ativan) 1 mg BID 07/04/16 21:00 07/08/16 15:58 DC 07/08/16 08:23 1 MG Polyethylene Glycol (Miralax) 17 g DAILY 07/05/16 09:00 07/08/16 08:23 17 G Quetiapine Fumarate (Seroquel) 25 mg BID 07/04/16 21:00 07/05/16 16:12 DC 07/05/16 09:00 25 MG Vitamin B Complex (Total B + C) 1 tab DAILY 07/05/16 09:00 07/08/16 08:23 1 TAB Miscellaneous Medication (May use PRN orders) 1 PRN PRN 07/04/16 16:00 Haloperidol (Haldol) 1 mg Q6H PRN 07/04/16 16:00 Lorazepam (Ativan) 1 mg Q6H PRN 07/04/16 16:00 Lorazepam (Ativan) 1 mg Q6H PRN 07/04/16 16:00 Haloperidol Lactate (Haldol 5 Mg/ml Inj) 1 mg Q6H PRN 07/04/16 16:00 Lorazepam (Ativan Intensol) 1 mg Q6H PRN 07/05/16 04:15 07/05/16 04:17 1 MG Quetiapine Fumarate (Seroquel) 50 mg BID 07/05/16 21:00 07/06/16 06:14 DC 07/05/16 21:00 50 MG Senna/Docusate Sodium (Senna Plus) 2 tab BID 07/05/16 21:00 07/08/16 17:44 2 TAB Quetiapine Fumarate (Seroquel) 50 mg BID 07/06/16 09:00 07/06/16 10:39 DC Risperidone (Risperdal) 0.25 mg BID 07/06/16 21:00 07/08/16 17:43 0.25 MG Acetaminophen (Tylenol Regular Strength) 1-2 tabs Q5H PRN 07/08/16 04:30 07/08/16 17:39 650 MG Lorazepam (Ativan) 0.5 mg BID 07/08/16 21:00 07/08/16 17:43 0.5 MG Lorazepam (Ativan) 0.5 mg BID 07/08/16 21:00 Subjective Patient was recently placed in LTC due to progression of her dementia, previously residing with her . Facility reports over past 2 weeks patient has become increasingly agitated, combative and resistive with cares. She has not showered in over 3 weeks. She is verbally and physically aggressive , with limited verbal communication skills. Today, patient was seen and chart reviewed. Patient was seen to be confused, incoherent and states that she has been having non productive cough today. Her sleep has been poor and reportedly slept for about 3.25 hours last night. Patient has urinary catheter in situ and there appears to be dark colored urine in the uribag. She is on Celexa 40mg and Risperidone 0.5mg BID. No acute or chronic EPS noted. Reviewed CBC from 07/07/16 which showed elevated WBC. Will get a UA today. Time of Service: 14:45 Start Time: 14:45 Stop Time: 15:00 Care >50% of this visit spent in counseling/coordination care. [facility] Exam Vitals Vital Signs Date Time Temp Pulse Resp B/P Pulse Ox O2 Delivery O2 Flow Rate FiO2 07/08/16 16:17 97.1 71 16 129/76 97 Room Air Physical examination performed by the hospitalist. Height (Feet): 5 Height (Inches): 3.00 Mental Status Exam Muscle Strength/Tone: Weak Dressing: Casual Grooming: Fair Attitude: Uncooperative Motor Activity: Normal Eye Contact: Poor Speech: Slowed Volume: Soft Sensory: Drowsy Orientation: Disoriented to time, Disoriented to place, Disoriented to situation Mood: Anxious Affect: Restricted Rate of Thoughts: Delayed Thought Organization: Confused Associations: Loose-associations Abstract Reasoning: Impaired, concrete Computation: Poor Computation Current Hallucinations: Visual Attention Span/Concentration: Inattentive Fund of Knowledge: Poor fund of knowledge Memory: Poor-immediate, Poor-recent, Poor-remote Suicidal Ideation: None Homicidal Ideation: None Insight: Poor Judgment: Poor Impulse Control: Poor Assessment and Plan (1) Major neurocognitive disorder Assessment: with behavioral disturbance 07/06/16: Discontinue Seroquel due to concerns of urinary retention; start Risperdal 0.25mg PO BID alternatively. Discussed this with /DPOA, who is in agreement with plan after discussion of risks/benefits. 07/07/16: Cont current medications 07/08/16: Encourage fluid intake. Obtain UA today. (2) CVA (cerebral vascular accident) (3) Chronic lymphocytic leukemia (4) CKD (chronic kidney disease), stage III (5) Leukocytosis (6) Hypertension JOHN TARANGO MD July 08, 2016 19:05
[2016-07-08 19:53] VITALS: BP 149/85; PULSE 67; RESP 16; TEMP 97.6
--- NOTE | 2016-07-08 22:29 | NUR ---
SUMMARY PATIENT WAS SITTING IN THE DAYROOM MOST OF THE EVENING. SHE TOOK ALL HER MEDICATIONS CRUSHED WITHOUT A PROBLEM. NO AGGRESSIVE BEHAVIORS DURING THE EVENING. WHEN SHE WAS TAKEN TO HER ROOM FOR A SHOWER SHE WAS ALITTLE RESISTANT WITH STAFF BUT EVENTUALLY COOPERATED. NO PRN'S GIVEN OF NOW. SHE REMAINED IN BED WITH BED RAILS UP X2 AND BED ALARM.
[2016-07-09 00:06] LABS: VITAMIN B12 - BATCH > 1000 PG/ML (239-931)
--- NOTE | 2016-07-09 04:19 | NUR ---
Chart Check 24 hour chart check completed
[2016-07-09 06:17] LABS: BLOOD, URINE 3+ (NEGATIVE); COLOR,URINE YELLOW (YELLOW); LEUKOCYTE ESTERASE ,URINE 1+ (NEGATIVE); NITRITE,URINE POSITIVE (NEGATIVE); UROBILINOGEN,URINE 0.2 EU/DL (NORMAL)
[2016-07-09 06:38] LABS: WBC,URINE TNTC /HPF (0-5)
[2016-07-09 06:39] LABS: BACTERIA,URINE 4+ (NEGATIVE); SQUAMOUS EPITHELIAL CELL,UR 0-5
--- NOTE | 2016-07-09 07:57 | NUR ---
Summary/Bedtime Pt. is asleep on approach. Pt. is fatigued and opens her eyes briefly with verbal stimuli. Pt. is passive when UA sample collected, pt only says "Art" when her leg had to be moved. Pt. had 300 cc cloudy light luke urine this shift. Pt. is resting in bed with the bed alarm activated and SR up x3. Pt. is asleep at 2145 and slept entire shift.
[2016-07-09] MEDS: LORAZEPAM 0.5 MG TABLET PO SCH ×2 (08:54→13:00)
[2016-07-09] MEDS: SENNA + DOCUSATE TAB PO SCH ×2 (08:55→13:00)
[2016-07-09] MEDS: RISPERIDONE 0.25 MG TABLET PO SCH ×3 (08:55→20:21)
[2016-07-09] MEDS: POLYETHYL.GLYCOL 3350 PACKET 17gm PO SCH ×2 (08:55→13:00)
[2016-07-09] MEDS: VITAMIN B COMP + C TABLET PO SCH ×2 (08:55→13:00)
[2016-07-09] MEDS ORDERED: CEPHALEXIN 500 MG CAPSULE PO SCH (10:00)
[2016-07-09 10:07] VITALS: BP 140/71; PULSE 76; RESP 16; TEMP 97.1; O2SAT 92
--- NOTE | 2016-07-09 13:00 | NUR ---
status pt woke this am [id number]. slept 9.75 hrs over night. pt has refused medication after several attempts by different staff, breakfast and lunch. she has drank several cups of water. pt has been very sarcastic, makes comments to staff when they walk by her such as " your the devil" " get away from me bitch" " you are a bitch." pt has sat in day room since waking.
--- NOTE | 2016-07-09 13:04 | NUR ---
BEATRICE CM SPOKE WITH RAMÓN PT SPOUSE. CM EXPLAINED ROLE AND PROVIDED CONTACT INFORMATION. RAMÓN PLANS TO VISIT PT TOMORROW. RAMÓN IS AWARE TO CONTACT CM IF NEEDS ARISE.
--- NOTE | 2016-07-09 13:06 | PNPDOC ---
Subjective Date DATE: 07/09/16 TIME: 12:57 Subjective Marine is seen today in the day room. She is upset during examination and pushes stethoscope away. She denies pain on examination. Salas cath was placed on sat 07/06 for urinary retention. UA obtained this morning that was positive for UTI. Objective Vital Signs Vital signs Vital Signs Date Time Temp Pulse Resp B/P Pulse Ox O2 Delivery O2 Flow Rate FiO2 07/09/16 10:07 97.1 76 16 140/71 92 Room Air Height (Feet): 5 Height (Inches): 3.00 Weight (Kilograms): 63.000 General General Appearance: Alert, Confused, Cooperative, No Acute Distress Eyes (Brief) Eyes: FOUND: EOMI ENMT (Brief) ENMT: FOUND: mucosa moist, normal dentition, NOT FOUND: pharnyx erythema Neck (Brief) Neck: FOUND: midline, NOT FOUND: adenopathy, carotid bruits, tracheal deviation Respiratory (Brief) Respiratory: FOUND: clear all [place], equal bilaterally, NOT FOUND: wheezes Cardiovascular (Brief) Cardiac: FOUND: regular rate, regular rhythm, NOT FOUND: murmur, pedal edema Capillary Refill: <2 sec Abdomen (Brief) Abdominal: FOUND: BS normo active x4, soft, NOT FOUND: distended, tender (Brief) Comments salas cath Lymphatic (Brief) Lymphatic: NOT FOUND: adenopathy Musculoskeletal (Brief) Musculoskeletal: NOT FOUND: tenderness Integumentary (Brief) Integumentary: FOUND: dry, pink, warm Neurologic (Brief) Neurological: FOUND: cranial 2-12 intact Psychiatric (Brief) Psychiatric: FOUND: alert, attentive, normal affect Laboratory Laboratory Laboratory Tests 07/07/16 13:44 Laboratory Tests 07/07/16 13:44 Microbiology Microbiology Microbiology Date/Time Source Procedure Growth Status 07/09/16 06:40 Urine, Salas Indwelling Urine Culture - Preliminary CULTURE INITIATED - RESULTS PENDING Resulted Sepsis Diagnostic Criteria Sepsis Confirmed/Suspected Infection: No Assessment & Plan Problems: (1) Leukocytosis Status: Acute (2) Aggressive behavior Status: Acute (3) Dementia Status: Chronic (4) Irritable bowel syndrome Status: Chronic (5) Chronic lymphocytic leukemia Status: Chronic (6) Hypertension Status: Chronic (7) Sleep apnea Status: Chronic (8) CVA (cerebral vascular accident) Status: Chronic (9) CKD (chronic kidney disease), stage III Status: Chronic (10) Anxiety Status: Acute (11) Urinary retention Status: Acute Assessment & Plan: Salas inserted on 07/06/16 Plan/Intensity of Service 07/09/16 Salas catheter was inserted on 07/06/16 for retention. Urinalysis on today was positive for UTI. Initially started on Keflex however nursing staff reports she is refusing PO meds. Changed treatment of Rocephin 1 gm IM daily. Will re-evaluate over the next several days and will transition to PO Abx once behaviors have improved. Have nursing staff change out salas cath today. Will work on bladder re- training over the next few days. Continued leukocytosis. Will recheck CBC and BMP tomorrow morning. Code Status Do Not Resuscitate Hospital Course Summary Disclaimer The hospital course summary below is not to be considered part of the above Progress Note. Hospital Course Summary 07/04/16 Agree with admission to [facility]. Complete workup per Dr. Workman. Leukocytosis without evidence of SIRS or active infection. Would not treat at this time. In addition, she also has a history of CLL, which can skew results. There was no documentation of active treatment in the chart. Follow-up CBC on Thursday. History of chronic kidney disease, baseline creatinine unknown. Will reassess on Thursday. History of hypertension, but she is not on any antihypertensives. Will monitor. Provide a safe and supportive environment. 07/05/16- Patient continues agitated, inconsolable. Significant urinary retention last night. Will schedule bladder scan; straight cath PRN. If ongoing retention, place Salas. Assess KUB to make sure she does not have fecal retention that is causing her discomfort. Hx of CLL- likely cause of leukocytosis. Afebrile. Recent tx with Augmentin for URI. Recheck CBC in AM. Schedule tylenol for pain. BP remains elevated- continue to monitor at this time. May need to add medication if persists. 07/07/16 Salas catheter was inserted on 07/06/16 for retention. Urinalysis on 07/04/16 was unremarkable. Leukocytosis has improved, down to 13.3. KUB showed a moderate stool burden. She large soft-liquid bowel movements on Psychiatric progress notes reviewed: Discontinued Seroquel on 07/06/16 due to urinary retention; started Risperdal 0.25mg PO BID. 07/09/16 Salas catheter was inserted on 07/06/16 for retention. Urinalysis on today was positive for UTI. Initially started on Keflex however nursing staff reports she is refusing PO meds. Changed treatment of Rocephin 1 gm IM daily. Will re-evaluate over the next several days and will transition to PO Abx once behaviors have improved. Have nursing staff change out salas cath today. Will work on bladder re- training over the next few days. Continued leukocytosis. Will recheck CBC and BMP tomorrow morning. MEGHA SPRAGUE APRN July 09, 2016 13:02
[2016-07-09] MEDS ORDERED: LIDOCAINE 1% (10mg/ml) 5ml VIAL IJ ONE (13:15)
--- NOTE | 2016-07-09 13:55 | GENPN ---
[facility] Subjective Date DATE: 07/09/16 TIME: 13:45 Subjective/Severity of Illness Medications Current Medications Medications (Trade) Dose Ordered Sig/Carlie Start Time Stop Time Status Last Admin Dose Admin Ziprasidone (Geodon) 10 mg Q2HR PRN 07/04/16 12:15 07/04/16 19:54 DC 07/04/16 12:11 10 MG Citalopram Hydrobromide (Celexa) 40 mg DAILY 07/05/16 09:00 07/08/16 08:23 40 MG Lorazepam (Ativan) 1 mg BID 07/04/16 21:00 07/08/16 15:58 DC 07/08/16 08:23 1 MG Polyethylene Glycol (Miralax) 17 g DAILY 07/05/16 09:00 07/08/16 08:23 17 G Quetiapine Fumarate (Seroquel) 25 mg BID 07/04/16 21:00 07/05/16 16:12 DC 07/05/16 09:00 25 MG Vitamin B Complex (Total B + C) 1 tab DAILY 07/05/16 09:00 07/08/16 08:23 1 TAB Miscellaneous Medication (May use PRN orders) 1 PRN PRN 07/04/16 16:00 Haloperidol (Haldol) 1 mg Q6H PRN 07/04/16 16:00 Lorazepam (Ativan) 1 mg Q6H PRN 07/04/16 16:00 Lorazepam (Ativan) 1 mg Q6H PRN 07/04/16 16:00 Haloperidol Lactate (Haldol 5 Mg/ml Inj) 1 mg Q6H PRN 07/04/16 16:00 Lorazepam (Ativan Intensol) 1 mg Q6H PRN 07/05/16 04:15 07/05/16 04:17 1 MG Quetiapine Fumarate (Seroquel) 50 mg BID 07/05/16 21:00 07/06/16 06:14 DC 07/05/16 21:00 50 MG Senna/Docusate Sodium (Senna Plus) 2 tab BID 07/05/16 21:00 07/08/16 17:44 2 TAB Quetiapine Fumarate (Seroquel) 50 mg BID 07/06/16 09:00 07/06/16 10:39 DC Risperidone (Risperdal) 0.25 mg BID 07/06/16 21:00 07/08/16 17:43 0.25 MG Acetaminophen (Tylenol Regular Strength) 1-2 tabs Q5H PRN 07/08/16 04:30 07/08/16 17:39 650 MG Lorazepam (Ativan) 0.5 mg BID 07/08/16 21:00 07/09/16 09:11 DC 07/09/16 08:54 0.5 MG Lorazepam (Ativan) 0.5 mg BID 07/08/16 21:00 Cephalexin HCl (Keflex) 500 mg Q8HR 07/09/16 10:00 Future Hold Ceftriaxone Sodium (Rocephin) 1 g DAILY 07/09/16 11:45 Lidocaine HCl (Xylocaine 1% 5 ml) 21 mg DAILY 07/10/16 09:00 Subjective Patient was recently placed in LTC due to progression of her dementia, previously residing with her . Facility reports over past 2 weeks patient has become increasingly agitated, combative and resistive with cares. She has not showered in over 3 weeks. She is verbally and physically aggressive , with limited verbal communication skills. Today, patient was seen and chart reviewed. Patient was seen to be confused, incoherent and reports that she is able to see her dad in the hallway. Her sleep seems to have improved last night and she was said to have slept better last night. Patient has urinary catheter in situ and the urine appears to be clear colored probaly due t to better fluid intake. Order UA yesterday which showed the presence of Nitrites, WBC and RBC. She is currently on Celexa 40mg and Risperidone 0.5mg BID. No acute or chronic EPS noted. Discussed with the hospitalist about treating patient for UTI and patient was initially started on Keflex but since she is refusing the medication. She has been started on IM Ceftriaxone. Time of Service: 11:00 Start Time: 11:00 Stop Time: 11:15 Care >50% of this visit spent in counseling/coordination care. [facility] Exam Vitals Vital Signs Date Time Temp Pulse Resp B/P Pulse Ox O2 Delivery O2 Flow Rate FiO2 07/09/16 10:07 97.1 76 16 140/71 92 Room Air Physical examination performed by the hospitalist. Height (Feet): 5 Height (Inches): 3.00 Mental Status Exam Muscle Strength/Tone: Weak Dressing: Casual Grooming: Disheveled Attitude: Uncooperative Motor Activity: Normal Eye Contact: Poor Speech: Slowed Volume: Soft Rhythm: Mumbled Sensory: Alert Orientation: Disoriented to time, Disoriented to person, Disoriented to place, Disoriented to situation Mood: Irritable Affect: Restricted Rate of Thoughts: Delayed Thought Organization: Disorganized Associations: Loose-associations Abstract Reasoning: Impaired, concrete Computation: Poor Computation Thought Content: Delusions Perception/Psychotic: Psychotic Current Hallucinations: Visual Attention Span/Concentration: Inattentive Fund of Knowledge: Poor fund of knowledge Memory: Poor-immediate, Poor-recent, Poor-remote Suicidal Ideation: None Homicidal Ideation: None Insight: Poor Judgment: Poor Impulse Control: Poor Laboratory Tests Test 07/09/16 05:18 Urine Collection Type Ruiz indwelling Urine Color Yellow Urine Turbidity Cloudy Urine pH 5.5 Urine Specific [place] 1.025 Urine Protein 1+ Urine Glucose (UA) Negative Urine Ketones Negative Urine Blood 3+ Urine Nitrite Positive Urine Bilirubin Negative Urine Urobilinogen 0.2EU/DL Urine Leukocyte Esterase 1+ Urine RBC 5-10/HPF Urine WBC Tntc/HPF Urine Squamous Epithelial Cells 0-5 Urine Bacteria 4+ Urine Culture Indicated Cult reflexed &setup Assessment and Plan (1) Major neurocognitive disorder Assessment: with behavioral disturbance 07/06/16: Discontinue Seroquel due to concerns of urinary retention; start Risperdal 0.25mg PO BID alternatively. Discussed this with /DPOA, who is in agreement with plan after discussion of risks/benefits. 07/07/16: Cont current medications 07/08/16: Encourage fluid intake. Obtain UA today. 07/09/16: Patient has been started on Rocephin by hospitalist for UTI. Hold Celexa, Lorazepam, Senna, Glycol. RN please use Haldol for PRN first rather than Lorazepam (2) CVA (cerebral vascular accident) (3) Chronic lymphocytic leukemia (4) CKD (chronic kidney disease), stage III (5) Leukocytosis (6) Hypertension JOHN TARANGO MD July 09, 2016 13:50
[2016-07-09] MEDS: CEFTRIAXONE 1 GRAM INJECTION IM SCH (14:56)
--- NOTE | 2016-07-09 14:57 | NUR ---
status orders received to change salas catheter. pt resists staff a little but tolerated procedure well. got 200ml out of old salas. pt laying in bed at this time.
[2016-07-09 16:00] VITALS: BP 160/81; PULSE 81; RESP 20; TEMP 98.4; O2SAT 99
[2016-07-09] MEDS: HALOPERIDOL 0.5 MG TABLET PO PRN (17:26)
[2016-07-09] MEDS: ACETAMINOPHEN 325 MG TABLET PO PRN (17:26)
--- NOTE | 2016-07-09 18:23 | NUR ---
summary pt has had crying spells on and off all shift. pt has not eaten all day multiple attempts from several different people and pt would not eat. pt has not taken any scheduled medication. pt crying and grimacing holding leg. prn tylenol given and pt finally took after 2 attempts. no physical aggression noted except when staff was inserting a salas cath.
[2016-07-09 21:08] VITALS: BP 137/85; PULSE 70; RESP 20; TEMP 98; O2SAT 96
--- NOTE | 2016-07-10 00:15 | NUR ---
Status Pt in bed at start of shift. She was moaning/crying but denied pain. When asked for date of pt states she doesn't know it and when RN started assessment pt was pushing stethoscope away but after talking with her pt finally allowed assessment. Pt was offered water at this time but refused. Pt was not cooperative with medications at first but eventually she took them. Pt not cooperative during cares and became combative trying to hit staff and kick them. Pt was in bed at beginning of the shift and fell asleep at 2100. Bed is in low position, SR up x 2, call light in reach but pt does not use it and bed alarm is on. Will continue to monitor.
[2016-07-10] MEDS: ACETAMINOPHEN 325 MG TABLET PO PRN ×3 (03:11→20:08)
[2016-07-10 05:15] LABS: HCT - HEMATOCRIT 39.5 % (36-46); MEAN CORPUSCULAR HGB 29.9 UUG (26-34); MEAN CORPUSCULAR HGB CONC(MCHC 32.9 GM/DL (31-37); MEAN CORPUSCULAR VOLUME 90.8 UM3 (80-100); MEAN PLATELET VOLUME 10.8 UM3 (9.4-12.4); RED BLOOD COUNT 4.35 M/MM3 (4.00-5.20); WBC - WHITE BLOOD COUNT 15.3 T/MM3 (4.5-11.0)
--- NOTE | 2016-07-10 05:15 | NUR ---
Summary Pt has been awake since 299 lying in bed moaning/crying. She had PRN Tylenol 650 mg at 310. Pt has been combative and uncooperative with turning and medications. Pt has been offered fluids with every position change pt refuses . At once time RN tried to drop some water in pts mouth through a straw but she would not open her mouth. Bed in low position, SR up x 2, call light in reach and bed alarm is on. Will continue to monitor.
[2016-07-10 05:25] LABS: ANION GAP 9 MEQ/L (5-15); BUN/CREATININE RATIO 18 RATIO (6-26); CALCIUM 9.5 MG/DL (8.4-10.2); CHLORIDE 107 MEQ/L (98-107); CO2 - CARBON DIOXIDE 27 MEQ/L (22-30); CREATININE 1.2 MG/DL (0.7-1.2); GLOMERULAR FILTRATION RATE 43; GLUCOSE 104 MG/DL (65-110); POTASSIUM 4.6 MEQ/L (3.6-5); SODIUM 143 MEQ/L (134-144)
--- NOTE | 2016-07-10 06:03 | NUR ---
Chart Check 24 hour chart check completed
[2016-07-10 06:42] LABS: BASOPHILS # (MANUAL) 0.2 T/MM3 (0-0.2); LYMPHOCYTES # (MANUAL) 6.7 T/MM3 (1-4.8); MONOCYTES # (MANUAL) 0.2 T/MM3 (0-0.8); NEUTROPHILS #(MANUAL)-ABSOLUTE 8.3 T/MM3 (1.8-7.7); TOTAL CELLS COUNTED 100 %
[2016-07-10] MEDS: LIDOCAINE 1% (10mg/ml) 5ml VIAL IJ SCH (08:27)
[2016-07-10] MEDS: RISPERIDONE 0.25 MG TABLET PO SCH (08:27)
[2016-07-10] MEDS: VITAMIN B COMP + C TABLET PO SCH (08:27)
[2016-07-10] MEDS: CEFTRIAXONE 1 GRAM INJECTION IM SCH (08:28)
--- NOTE | 2016-07-10 09:18 | PNPDOC ---
Subjective Date DATE: 07/10/16 TIME: 08:46 Subjective Marine was tearful, but then denied anything was wrong. She commented on the wind and then started crying again. She wasn't able to answer any questions. Nurses report that she has not been taking in much fluids and only had 125 mL of urine output overnight. She refused lunch and supper last night. Objective Vital Signs Vital signs Vital Signs Date Time Temp Pulse Resp B/P Pulse Ox O2 Delivery O2 Flow Rate FiO2 07/09/16 21:08 98.0 70 20 137/85 96 Room Air Height (Feet): 5 Height (Inches): 3.00 Weight (Kilograms): 63.000 General General Appearance: Alert, Mild Distress (tearful) Respiratory (Brief) Respiratory: FOUND: clear all [place], equal bilaterally Cardiovascular (Brief) Cardiac: FOUND: regular rate, regular rhythm Abdomen (Brief) Abdominal: FOUND: BS normo active x4, soft, NOT FOUND: distended, tender Extremities (Brief) Extremity : Extremity: leg Extremity Finding: NOT FOUND: edema Integumentary (Brief) Integumentary: FOUND: dry, warm Psychiatric (Brief) Psychiatric: FOUND: alert, NOT FOUND: normal affect Laboratory Laboratory Laboratory Tests 07/10/16 04:36 Laboratory Tests 07/10/16 04:36 Microbiology Microbiology Microbiology Date/Time Source Procedure Growth Status 07/09/16 06:40 Urine, Salas Indwelling Urine Culture - Preliminary CULTURE INITIATED - RESULTS PENDING Resulted Sepsis Diagnostic Criteria Sepsis Confirmed/Suspected Infection: No Assessment & Plan Problems: (1) Leukocytosis Status: Acute (2) Aggressive behavior Status: Acute (3) Dementia Status: Chronic (4) Irritable bowel syndrome Status: Chronic (5) Chronic lymphocytic leukemia Status: Chronic (6) Hypertension Status: Chronic (7) Sleep apnea Status: Chronic (8) CVA (cerebral vascular accident) Status: Chronic (9) CKD (chronic kidney disease), stage III Status: Chronic (10) Anxiety Status: Acute (11) Urinary retention Status: Acute Assessment & Plan: Salas inserted on 07/06/16 Plan/Intensity of Service Urine culture pending - cont. IM Rocephin since she was refusing Keflex. Continue bladder re-training. Leukocytosis is improving. Labs are stable despite not taking in much oral. Nurses don't think she will do well with an IV. SW recommends talking with her before ordering an IV. Will ask nurses to push oral fluids and will repeat BMP in am. She is hemodynamically stable. Psychiatric progress note reviewed: Hold Celexa, Lorazepam, Senna, Glycol. Code Status Do Not Resuscitate Hospital Course Summary Disclaimer The hospital course summary below is not to be considered part of the above Progress Note. Hospital Course Summary 07/04/16 Agree with admission to [facility]. Complete workup per Dr. Workman. Leukocytosis without evidence of SIRS or active infection. Would not treat at this time. In addition, she also has a history of CLL, which can skew results. There was no documentation of active treatment in the chart. Follow-up CBC on Thursday. History of chronic kidney disease, baseline creatinine unknown. Will reassess on Thursday. History of hypertension, but she is not on any antihypertensives. Will monitor. Provide a safe and supportive environment. 07/05/16- Patient continues agitated, inconsolable. Significant urinary retention last night. Will schedule bladder scan; straight cath PRN. If ongoing retention, place Salas. Assess KUB to make sure she does not have fecal retention that is causing her discomfort. Hx of CLL- likely cause of leukocytosis. Afebrile. Recent tx with Augmentin for URI. Recheck CBC in AM. Schedule tylenol for pain. BP remains elevated- continue to monitor at this time. May need to add medication if persists. 07/07/16 Salas catheter was inserted on 07/06/16 for retention. Urinalysis on 07/04/16 was unremarkable. Leukocytosis has improved, down to 13.3. KUB showed a moderate stool burden. She large soft-liquid bowel movements on Psychiatric progress notes reviewed: Discontinued Seroquel on 07/06/16 due to urinary retention; started Risperdal 0.25mg PO BID. 07/09/16 Salas catheter was inserted on 07/06/16 for retention. Urinalysis on today was positive for UTI. Initially started on Keflex however nursing staff reports she is refusing PO meds. Changed treatment of Rocephin 1 gm IM daily. Will re-evaluate over the next several days and will transition to PO Abx once behaviors have improved. Have nursing staff change out salas cath today. Will work on bladder re- training over the next few days. Continued leukocytosis. Will recheck CBC and BMP tomorrow morning. 07/10/16 Urine culture pending - cont. IM Rocephin since she was refusing Keflex. Continue bladder re-training. Leukocytosis is improving. Labs are stable despite not taking in much oral. Nurses don't think she will do well with an IV. SW recommends talking with her before ordering an IV. Will ask nurses to push oral fluids and will repeat BMP in am. She is hemodynamically stable. Psychiatric progress note reviewed: Hold Celexa, Lorazepam, Senna, Glycol. ASHLEY BEY DIESEL PILE DRIVER OPERATOR July 10, 2016 08:47
[2016-07-10 09:33] VITALS: BP 144/77; PULSE 60; RESP 16; TEMP 97.6
--- NOTE | 2016-07-10 10:07 | NUR ---
FAMILY AT BEDSIDE AND DAUGHTER HAD QUESTIONS ANSWERED ABOUT PT DECREASED OUT PUT AND REFUSAL TO EAT AND DRINK FOR NOC SHIFT AND START OF THIS SHIFT. PT IS TAKING SMALL SIPS FOR FAMILY BUT REMAINS COMBATIVE AND CONTINUES TO REFUSE FOOD. FAMILY REQUESTS THEY ORDER HER MEALS. MENU AND ORDER SHEET WAS GIVEN TO [facility] FILLING IT OUT. ALL QUESTIONS HAVE BEEN ANSWERED AND FAMILY IS VISITING WITH PT IN ROOM.
--- NOTE | 2016-07-10 11:00 | NUR ---
WEIGH BOSS--AM GROUP Pt's family was visiting during AM psychoeducational group. She did not attend group.
--- NOTE | 2016-07-10 13:30 | NUR ---
MID SHIFT NOTE PT WAS NON COMPLIANT WITH CARES, PT HAS A MIGUEL AND IS CONTINENT OF BOWEL. PT REFUSED BREAKFAST AND WAS COMBATIVE WITH STAFF. PT WAS COMPLIANT WHEN FAMILY ARRIVED AND AMBULATED TO AND FROM BATHROOM W/ MINIMAL ASSISTANCE. NO PRN MEDICATION WAS GIVEN FOR BEHAVIORS BUT PT DID RECEIVE 650MG OF TYLENOL FOR C/O SANDOVAL. WILL CONTINUE TO MONITOR PT.
--- NOTE | 2016-07-10 14:15 | NUR ---
BOOTMAKER--FAMILY CONTACT [facility] met with pt's daughter, Ann Mckeon. Talked with daughter about pt's status and asked about the family's understanding about progression of the disease. The daughter states she has done lots of research about the disease and thinks she knows what to expect. She thinks her dad is unrealistic and continues to hope pt. will improve so that he can take her home again. Daughter agrees that pt. is displaying symptoms of late stage dementia. She is aware that pt. is at a greater risk of decline because of secondary infections. She said some days her mother will pocket food and she seems not to be able to swallow well. This SW explained that at some point in the disease process, the family may want to explore what type of supportive service Hospice might be able to provide to the patient and the facility. The daughter thought she would ask what services might be available in their [place] area.
--- NOTE | 2016-07-10 14:50 | NUR ---
PRN PT C/O SANDOVAL TO FAMILY. ASSESSED BY THIS NURSE PT GRIMACED AND POINTED TO HEAD. TYLENOL 650MG WAS GIVEN AT THIS TIME. PT TOOK MEDS WHOLE WITH WATER AT REQUEST OF SPOUSE. PT DID WELL WITH THIS AND WAS PLEASANT.
[2016-07-10 17:08] VITALS: BP 165/79; PULSE 70; RESP 18; TEMP 98.3; O2SAT 93
[2016-07-10] MEDS ORDERED: RISPERIDONE 0.5 MG TABLET PO ONE (18:45)
--- NOTE | 2016-07-10 19:27 | NUR ---
SHIFT SUMMARY PT WAS PLEASANT AND ATE AND DRANK FOR FAMILY WITHOUT INCIDENT. PT FAMILY STAYED FOR EIGHT HOURS AND PT HAD NO BEHAVIORS WHILE THEY WERE HER. WHEN PT FAMILY LEFT PT WAS BACK TO NOT EATING OR DRINKING AND REFUSED ALL CARES. PT WAS AGAIN COMBATIVE WITH STAFF. PT SAT IN ROOM CRYING AND REFUSED CARES AND FOOD. PT STATES HER H/A IS GONE NOW. PT ISOLATED IN ROOM AFTER FAMILY LEFT AND REFUSED TO COME TO DAY ROOM. FAMILY CALLED TWICE SO FAR TO CHECK UP ON PT. WILL CONTINUE TO MONITOR PT TILL END OF SHIFT REPORT.
[2016-07-10] MEDS: HALOPERIDOL 0.5 MG TABLET PO PRN (20:32)
--- NOTE | 2016-07-10 21:30 | NUR ---
PRN behavior assessment Pt remains calm resting in bed without falling asleep.
--- NOTE | 2016-07-10 22:29 | GENPN ---
[facility] Subjective Date DATE: 07/10/16 TIME: 22:16 Subjective/Severity of Illness Medications Current Medications Medications (Trade) Dose Ordered Sig/Carlie Start Time Stop Time Status Last Admin Dose Admin Ziprasidone (Geodon) 10 mg Q2HR PRN 07/04/16 12:15 07/04/16 19:54 DC 07/04/16 12:11 10 MG Citalopram Hydrobromide (Celexa) 40 mg DAILY 07/05/16 09:00 Future Hold 07/08/16 08:23 40 MG Lorazepam (Ativan) 1 mg BID 07/04/16 21:00 07/08/16 15:58 DC 07/08/16 08:23 1 MG Polyethylene Glycol (Miralax) 17 g DAILY 07/05/16 09:00 Future Hold 07/08/16 08:23 17 G Quetiapine Fumarate (Seroquel) 25 mg BID 07/04/16 21:00 07/05/16 16:12 DC 07/05/16 09:00 25 MG Vitamin B Complex (Total B + C) 1 tab DAILY 07/05/16 09:00 07/10/16 08:27 1 TAB Miscellaneous Medication (May use PRN orders) 1 PRN PRN 07/04/16 16:00 Haloperidol (Haldol) 1 mg Q6H PRN 07/04/16 16:00 07/10/16 20:32 1 MG Lorazepam (Ativan) 1 mg Q6H PRN 07/04/16 16:00 Lorazepam (Ativan) 1 mg Q6H PRN 07/04/16 16:00 Haloperidol Lactate (Haldol 5 Mg/ml Inj) 1 mg Q6H PRN 07/04/16 16:00 Lorazepam (Ativan Intensol) 1 mg Q6H PRN 07/05/16 04:15 07/05/16 04:17 1 MG Quetiapine Fumarate (Seroquel) 50 mg BID 07/05/16 21:00 07/06/16 06:14 DC 07/05/16 21:00 50 MG Senna/Docusate Sodium (Senna Plus) 2 tab BID 07/05/16 21:00 Future Hold 07/08/16 17:44 2 TAB Quetiapine Fumarate (Seroquel) 50 mg BID 07/06/16 09:00 07/06/16 10:39 DC Risperidone (Risperdal) 0.25 mg BID 07/06/16 21:00 07/10/16 18:48 DC 07/10/16 08:27 0.25 MG Acetaminophen (Tylenol Regular Strength) 1-2 tabs Q5H PRN 07/08/16 04:30 07/10/16 20:08 650 MG Lorazepam (Ativan) 0.5 mg BID 07/08/16 21:00 07/09/16 09:11 DC 07/09/16 08:54 0.5 MG Lorazepam (Ativan) 0.5 mg BID 07/08/16 21:00 Future Hold Cephalexin HCl (Keflex) 500 mg Q8HR 07/09/16 10:00 Future Hold Ceftriaxone Sodium (Rocephin) 1 g DAILY 07/09/16 11:45 07/10/16 08:28 1 G Lidocaine HCl (Xylocaine 1% 5 ml) 21 mg DAILY 07/10/16 09:00 07/10/16 08:27 21 MG Risperidone (Risperdal) 0.5 mg 07/11/16 09:00 Subjective Patient was recently placed in LTC due to progression of her dementia, previously residing with her . Facility reports over past 2 weeks patient has become increasingly agitated, combative and resistive with cares. She has not showered in over 3 weeks. She is verbally and physically aggressive , with limited verbal communication skills. Today, patient was seen and chart reviewed. She was seen to be confused, incoherent and unable to hold coherent conversation or sustain attention. Patient is able to state her name correctly but reports that she is "89 years old". The medical team is following her for UTI management and she got 1g of Rocephin today. Patient's WBC appears to be trending downward . Staff reports moments of lucidity when family was around and she was able to ambulate by herself . She was also able to eat some food with her family. Patient has been refusing oral intake since family left and the medical team wants to discuss with family prior to starting intravenous fluid. Time of Service: 19:30 Start Time: 19:30 Stop Time: 19:45 Care >50% of this visit spent in counseling/coordination care. [facility] Exam Vitals Vital Signs Date Time Temp Pulse Resp B/P Pulse Ox O2 Delivery O2 Flow Rate FiO2 07/10/16 17:08 98.3 70 18 165/79 93 Room Air Physical examination performed by the hospitalist. Height (Feet): 5 Height (Inches): 3.00 Mental Status Exam Muscle Strength/Tone: Weak Dressing: Casual Grooming: Poor Attitude: Uncooperative Motor Activity: Agitation Eye Contact: Poor Speech: Slowed Volume: Soft Rhythm: Mumbled Sensory: Alert Orientation: Oriented to person Mood: Anxious Affect: Restricted Thought Organization: Disorganized Associations: Loose-associations Abstract Reasoning: Impaired, concrete Thought Content: Delusions Current Hallucinations: Visual Attention Span/Concentration: Inattentive Language: Naming Impaired Fund of Knowledge: Poor fund of knowledge Memory: Poor-immediate, Poor-recent, Poor-remote Suicidal Ideation: None Homicidal Ideation: None Insight: Poor Judgment: Poor Impulse Control: Poor Laboratory Tests Test 07/10/16 04:36 White Blood Count 15.3T/MM3 Red Blood Count 4.35M/MM3 Hemoglobin 13.0GM/DL Hematocrit 39.5% Mean Corpuscular Volume 90.8UM3 Mean Corpuscular Hemoglobin 29.9UUG Mean Corpuscular Hemoglobin Concent 32.9GM/DL RDW Standard Deviation 43.4FL Platelet Count 137T/MM3 Mean Platelet Volume 10.8UM3 Immature Granulocyte % (Auto) % Neutrophils (%) (Auto) % Lymphocytes (%) (Auto) % Monocytes (%) (Auto) % Eosinophils (%) (Auto) % Basophils (%) (Auto) % Absolute Immature Granulocyte (auto T/MM3 Absolute Neutrophils (auto) T/MM3 Absolute Lymphocytes (auto) T/MM3 Absolute Monocytes (auto) T/MM3 Absolute Eosinophils (auto) T/MM3 Absolute Basophils (auto) T/MM3 Neutrophils % (Manual) 54.0% Lymphocytes % (Manual) 44.0% Monocytes % (Manual) 1.0% Basophils % (Manual) 1.0% Absolute Neutrophils (Manual) 8.3T/MM3 Lymphocytes # (Manual) 6.7T/MM3 Monocytes # (Manual) 0.2T/MM3 Basophils # (Manual) 0.2T/MM3 Red Cell Morphology Comment Normal Turbidity < 20 Sodium Level 143MEQ/L Potassium Level 4.6MEQ/L Chloride Level 107MEQ/L Carbon Dioxide Level 27MEQ/L Anion Gap 9MEQ/L Blood Urea Nitrogen 21.0MG/DL Creatinine 1.2MG/DL Glomerular Filtration Rate Calc 43 BUN/Creatinine Ratio 18RATIO Glucose Level 104MG/DL Calculated Osmolality 278MOSM/KG Calcium Level 9.5MG/DL Icterus Index < 2 Chemistry Specimen Hemolysis 27 Assessment and Plan (1) Major neurocognitive disorder Assessment: with behavioral disturbance 07/06/16: Discontinue Seroquel due to concerns of urinary retention; start Risperdal 0.25mg PO BID alternatively. Discussed this with /DPOA, who is in agreement with plan after discussion of risks/benefits. 07/07/16: Cont current medications 07/08/16: Encourage fluid intake. Obtain UA today. 07/09/16: Patient has been started on Rocephin by hospitalist for UTI. Hold Celexa, Lorazepam, Senna, Glycol. RN please use Haldol for PRN first rather than Lorazepam 07/10/16: Increase Risperidone to 0.5mg BID. Patient will benefit from re- hydration with IVF since she has poor intake (2) CVA (cerebral vascular accident) (3) Chronic lymphocytic leukemia (4) CKD (chronic kidney disease), stage III (5) Leukocytosis (6) Hypertension JOHN TARANGO MD July 10, 2016 22:25
--- NOTE | 2016-07-11 00:08 | NUR ---
Mid shift/PRN Behavior Pt was sitting in recliner at bedside at start of this shift. Pt confused uncooperative with assessment, she refused to have her VS taken at this this time and became physically aggressive. Pt has salas to DD with luke, cloudy urine. pt began pulling on her salas asking what it was. RN educated pt about the salas and that pt should not pull it out. Pt stated she won't its coming with her because she is going home. Pt was offered night medication whole with water and pt refused. Another RN tried to give pt medication but she refused. Medications were crushed and put in pudding and pt did eventually take them. PRN Tylenol given at 2007 d/t pt grabbing L knee and grimacing. Staff tried to get pt to get into bed on her own or with assist but pt became combative hitting kicking staff. Pt was helped into bed and changed into a gown at 2014. Rails up x 4 and pt on 1:1 d/t trying to climb OOB so she can go home and combative with staff. PRN Haldol 1mg given, pt continued 1:1 for another thirty minutes when pt calmed down. Several different staff tried to console pt but she was very aggravated Pt continues to lay awake in bed. Bed is in low position, SR up x 3, bed alarm on and functioning. Will continue to monitor.
--- NOTE | 2016-07-11 00:47 | NUR ---
Chart Check 24 hour chart check completed
[2016-07-11 05:37] VITALS: BP 162/83; PULSE 74; RESP 18; TEMP 97.1; O2SAT 96
--- NOTE | 2016-07-11 06:30 | NUR ---
Shift Summary Pt did not fall asleep until 444. She did wake for cares , she was resistive at first but did allow VS to be taken and repositioned. She was cooperative with lab and pt was able to fall back to sleep. Pt had no further behaviors this shift. Pt had 400 ml of yellow urine to DD at end of shift. Pt has been free from falls. Bed is in low position and locked, SR up x 3, call light in reach but pt does not use and bed alarm is on and functioning. Will continue to monitor.
[2016-07-11 06:44] LABS: ANION GAP 12 MEQ/L (5-15); BUN/CREATININE RATIO 16 RATIO (6-26); CALCIUM 9.2 MG/DL (8.4-10.2); CHLORIDE 105 MEQ/L (98-107); CO2 - CARBON DIOXIDE 28 MEQ/L (22-30); CREATININE 1.1 MG/DL (0.7-1.2); GLOMERULAR FILTRATION RATE 48; GLUCOSE 106 MG/DL (65-110); POTASSIUM 4.4 MEQ/L (3.6-5); SODIUM 145 MEQ/L (134-144)
--- NOTE | 2016-07-11 08:00 | NUR ---
Pt Status Pt. confused to time and place, oriented only to person, cooperative with much prompting to dress and allow nurse to help her get up with two assist. Denies pain. Ruiz catheter intact and cath care provided.
--- NOTE | 2016-07-11 08:00 | NUR ---
SLEEP TIME Reported pt to sleep at 0445 and was awake at 0800.
[2016-07-11] MEDS: VITAMIN B COMP + C TABLET PO SCH (08:23)
[2016-07-11] MEDS: RISPERIDONE 0.5 MG TABLET PO SCH ×2 (08:23→17:21)
[2016-07-11] MEDS: CEFTRIAXONE 1 GRAM INJECTION IM SCH (08:24)
[2016-07-11] MEDS: LIDOCAINE 1% (10mg/ml) 5ml VIAL IJ SCH (08:25)
[2016-07-11] MEDS ORDERED: LIDOCAINE 1% (10mg/ml) 2ml SDV IJ SCH (09:00)
[2016-07-11 10:51] VITALS: RESP 16
--- NOTE | 2016-07-11 11:25 | NUR ---
BENEFIT SPECIALIST--AM GROUP Pt. was present and actively engaged to the best of her ability in psychoeducational group facilitated by [facility]. Began group by talking about [place] and traditions of the celebration. Pt. was alert, Ox1, with pleasant (but confused) mood. Pt. stated she didn't really like [place] food . Played different kinds of music from different countries and patient was not able to identify the country the music represented. Ended group by listening to special requests from patients. Pt. was observed interacting appropriately with staff sitting beside her. Initially, she was restless (wanting to get up from the chair but not really having anyplace she really wanted to go). Once a variety of music from 50's and 60's was played, pt. smiled frequently and sat quietly during group. She talked with the SW sitting beside her about dancing with her .
[2016-07-11] MEDS: LORAZEPAM INTENSOL 1mg/0.5ml ORAL SOLUTION SL PRN (11:55)
--- NOTE | 2016-07-11 11:55 | NUR ---
PRN Med Pt received 1mg Ativan Intensol for tearfulness, fretful "I will never get home." Inconsolable, verbal and tactile measures tried.
--- NOTE | 2016-07-11 13:15 | NUR ---
Prn Response Pt awake in bed but no crying, or facial grimacing or wringing of covers.
[2016-07-11] MEDS ORDERED: BISACODYL 10 MG SUPPOSITORY RECTALLY PRN (14:45)
--- NOTE | 2016-07-11 15:00 | NUR ---
Hallucination Pt in bed and offered miguelangel kolb and as drinking pt reports that there are two people "up there" points towards ceiling. Does not describe them but smiles as talks about them.
--- NOTE | 2016-07-11 15:17 | NUR ---
EDITING CLERK--PM GROUP Pt. was in her room and did not participate in psychoeducational group facilitated by [facility].
--- NOTE | 2016-07-11 15:40 | PNPDOC ---
Subjective Date DATE: 07/11/16 TIME: 15:37 Subjective Marine is seen this afternoon while napping in bed. She is confused and her conversation is in comprehendible. She does have a baby doll in bed with her that she reports is her child. Catheter remains intact, it was changed on 07/09/16 , blood pressure from early this morning is mildly elevated 160/83.. Objective Vital Signs Vital signs Vital Signs Date Time Temp Pulse Resp B/P Pulse Ox O2 Delivery O2 Flow Rate FiO2 07/11/16 10:51 16 07/11/16 05:37 97.1 74 162/83 96 Room Air Height (Feet): 5 Height (Inches): 3.00 Weight (Kilograms): 63.000 General General Appearance: Alert, Confused, Cooperative, No Acute Distress Eyes (Brief) Eyes: FOUND: EOMI ENMT (Brief) ENMT: FOUND: mucosa moist, normal dentition, NOT FOUND: pharnyx erythema Neck (Brief) Neck: FOUND: midline, NOT FOUND: adenopathy, carotid bruits, tracheal deviation Respiratory (Brief) Respiratory: FOUND: clear all [place], equal bilaterally, NOT FOUND: wheezes Cardiovascular (Brief) Cardiac: FOUND: regular rate, regular rhythm, NOT FOUND: murmur, pedal edema Capillary Refill: <2 sec Abdomen (Brief) Abdominal: FOUND: BS normo active x4, soft, NOT FOUND: distended, tender (Brief) Comments Salas catheter Lymphatic (Brief) Lymphatic: NOT FOUND: adenopathy Musculoskeletal (Brief) Musculoskeletal: NOT FOUND: tenderness Integumentary (Brief) Integumentary: FOUND: dry, pink, warm Neurologic (Brief) Neurological: FOUND: cranial 2-12 intact Psychiatric (Brief) Psychiatric: FOUND: alert, attentive, normal affect Laboratory Laboratory Laboratory Tests 07/10/16 04:36 07/11/16 06:10 Laboratory Tests 07/10/16 04:36 Microbiology Microbiology Microbiology Date/Time Source Procedure Growth Status 07/09/16 06:40 Urine, Salas Indwelling Urine Culture - Preliminary Escherichia Coli Resulted Sepsis Diagnostic Criteria Sepsis Confirmed/Suspected Infection: No Assessment & Plan Problems: (1) Leukocytosis Status: Acute (2) Aggressive behavior Status: Acute (3) Dementia Status: Chronic (4) Irritable bowel syndrome Status: Chronic (5) Chronic lymphocytic leukemia Status: Chronic (6) Hypertension Status: Chronic (7) Sleep apnea Status: Chronic (8) CVA (cerebral vascular accident) Status: Chronic (9) CKD (chronic kidney disease), stage III Status: Chronic (10) Anxiety Status: Acute (11) Urinary retention Status: Acute Assessment & Plan: Salas inserted on 07/06/16 Plan/Intensity of Service 07/11/16 Reviewed urine culture which is positive for Escherichia coli. It is pansensitive. Will continue on IM Rocephin as patient was refusing oral medications. Today is day 3 of treatment. Will check CBC and BMP tomorrow morning to follow blood counts, renal function and electrolytes. If patient continues to have hypernatremia, may consider giving a bolus of IV fluids for hydration. Continue to monitor blood pressure as it is mildly elevated, likely secondary to her behaviors. Dulcolax suppository when necessary for bowel motivation Code Status Do Not Resuscitate Hospital Course Summary Disclaimer The hospital course summary below is not to be considered part of the above Progress Note. Hospital Course Summary 07/04/16 Agree with admission to [facility]. Complete workup per Dr. Workman. Leukocytosis without evidence of SIRS or active infection. Would not treat at this time. In addition, she also has a history of CLL, which can skew results. There was no documentation of active treatment in the chart. Follow-up CBC on Thursday. History of chronic kidney disease, baseline creatinine unknown. Will reassess on Thursday. History of hypertension, but she is not on any antihypertensives. Will monitor. Provide a safe and supportive environment. 07/05/16- Patient continues agitated, inconsolable. Significant urinary retention last night. Will schedule bladder scan; straight cath PRN. If ongoing retention, place Salas. Assess KUB to make sure she does not have fecal retention that is causing her discomfort. Hx of CLL- likely cause of leukocytosis. Afebrile. Recent tx with Augmentin for URI. Recheck CBC in AM. Schedule tylenol for pain. BP remains elevated- continue to monitor at this time. May need to add medication if persists. 07/07/16 Salas catheter was inserted on 07/06/16 for retention. Urinalysis on 07/04/16 was unremarkable. Leukocytosis has improved, down to 13.3. KUB showed a moderate stool burden. She large soft-liquid bowel movements on Psychiatric progress notes reviewed: Discontinued Seroquel on 07/06/16 due to urinary retention; started Risperdal 0.25mg PO BID. 07/09/16 Salas catheter was inserted on 07/06/16 for retention. Urinalysis on today was positive for UTI. Initially started on Keflex however nursing staff reports she is refusing PO meds. Changed treatment of Rocephin 1 gm IM daily. Will re-evaluate over the next several days and will transition to PO Abx once behaviors have improved. Have nursing staff change out salas cath today. Will work on bladder re- training over the next few days. Continued leukocytosis. Will recheck CBC and BMP tomorrow morning. 07/10/16 Urine culture pending - cont. IM Rocephin since she was refusing Keflex. Continue bladder re-training. Leukocytosis is improving. Labs are stable despite not taking in much oral. Nurses don't think she will do well with an IV. SW recommends talking with her before ordering an IV. Will ask nurses to push oral fluids and will repeat BMP in am. She is hemodynamically stable. Psychiatric progress note reviewed: Hold Celexa, Lorazepam, Senna, Glycol. 07/11/16 Reviewed urine culture which is positive for Escherichia coli. It is pansensitive. Will continue on IM Rocephin as patient was refusing oral medications. Today is day 3 of treatment. Will check CBC and BMP tomorrow morning to follow blood counts, renal function and electrolytes. If patient continues to have hypernatremia, may consider giving a bolus of IV fluids for hydration. Continue to monitor blood pressure as it is mildly elevated, likely secondary to her behaviors. Dulcolax suppository when necessary for bowel motivation MEGHA SPRAGUE APRN July 11, 2016 15:40
[2016-07-11 16:00] VITALS: BP 131/74; PULSE 89; RESP 16; TEMP 98; O2SAT 96
--- NOTE | 2016-07-11 17:37 | GENPN ---
[facility] Subjective Date DATE: 07/11/16 TIME: 17:33 Subjective/Severity of Illness Medications Current Medications Medications (Trade) Dose Ordered Sig/Carlie Start Time Stop Time Status Last Admin Dose Admin Ziprasidone (Geodon) 10 mg Q2HR PRN 07/04/16 12:15 07/04/16 19:54 DC 07/04/16 12:11 10 MG Citalopram Hydrobromide (Celexa) 40 mg DAILY 07/05/16 09:00 Future Hold 07/08/16 08:23 40 MG Lorazepam (Ativan) 1 mg BID 07/04/16 21:00 07/08/16 15:58 DC 07/08/16 08:23 1 MG Polyethylene Glycol (Miralax) 17 g DAILY 07/05/16 09:00 Future Hold 07/08/16 08:23 17 G Quetiapine Fumarate (Seroquel) 25 mg BID 07/04/16 21:00 07/05/16 16:12 DC 07/05/16 09:00 25 MG Vitamin B Complex (Total B + C) 1 tab DAILY 07/05/16 09:00 07/11/16 08:23 1 TAB Miscellaneous Medication (May use PRN orders) 1 PRN PRN 07/04/16 16:00 Haloperidol (Haldol) 1 mg Q6H PRN 07/04/16 16:00 07/10/16 20:32 1 MG Lorazepam (Ativan) 1 mg Q6H PRN 07/04/16 16:00 Lorazepam (Ativan) 1 mg Q6H PRN 07/04/16 16:00 Haloperidol Lactate (Haldol 5 Mg/ml Inj) 1 mg Q6H PRN 07/04/16 16:00 Lorazepam (Ativan Intensol) 1 mg Q6H PRN 07/05/16 04:15 07/11/16 11:55 1 MG Quetiapine Fumarate (Seroquel) 50 mg BID 07/05/16 21:00 07/06/16 06:14 DC 07/05/16 21:00 50 MG Senna/Docusate Sodium (Senna Plus) 2 tab BID 07/05/16 21:00 Future Hold 07/08/16 17:44 2 TAB Quetiapine Fumarate (Seroquel) 50 mg BID 07/06/16 09:00 07/06/16 10:39 DC Risperidone (Risperdal) 0.25 mg BID 07/06/16 21:00 07/10/16 18:48 DC 07/10/16 08:27 0.25 MG Acetaminophen (Tylenol Regular Strength) 1-2 tabs Q5H PRN 07/08/16 04:30 07/10/16 20:08 650 MG Lorazepam (Ativan) 0.5 mg BID 07/08/16 21:00 07/09/16 09:11 DC 07/09/16 08:54 0.5 MG Lorazepam (Ativan) 0.5 mg BID 07/08/16 21:00 Future Hold Cephalexin HCl (Keflex) 500 mg Q8HR 07/09/16 10:00 Future Hold Ceftriaxone Sodium (Rocephin) 1 g DAILY 07/09/16 11:45 07/11/16 08:24 1 G Lidocaine HCl (Xylocaine 1% 5 ml) 21 mg DAILY 07/10/16 09:00 07/11/16 08:26 DC 07/11/16 08:25 21 MG Risperidone (Risperdal) 0.5 mg 07/11/16 09:00 07/11/16 17:21 0.5 MG Lidocaine HCl (Xylocaine 1%) 21 mg DAILY 07/11/16 09:00 07/11/16 08:24 21 MG Bisacodyl (Dulcolax) 10 mg DAILY PRN 07/11/16 14:45 07/11/16 14:48 10 MG Subjective Pt seen and chart examined. Nursing reports pt can be tearful and anxious at times. Pt received Haldol at 2031 for agitation. She also received Ativan at noon for anxiety. Nursing reports pt had VH today and saw people in her room. Staff reports overall however the pt is better than yesterday. On face to face the pt is pleasant but confused. She is only oriented to self. She voices no concerns. Tolerating meds. Denies VH at this time. Time of Service: : Start Time: : Stop Time: 17:45 Care >50% of this visit spent in counseling/coordination care. [facility]ations Exam Vitals Vital Signs Date Time Temp Pulse Resp B/P Pulse Ox O2 Delivery O2 Flow Rate FiO2 07/11/16 16:00 98.0 89 16 131/74 96 Room Air Physical examination performed by the hospitalist. Height (Feet): 5 Height (Inches): 3.00 Mental Status Exam Muscle Strength/Tone: Normal Dressing: Casual Grooming: Good Attitude: Cooperative Motor Activity: Retardation Eye Contact: Good Speech: Slowed Volume: Soft Rhythm: Appropriate Rhythm Sensory: Drowsy Orientation: Oriented to person Mood: Neutral Affect: Congruent Rate of Thoughts: Delayed Thought Organization: [place] Associations: Illogical Abstract Reasoning: Impaired, concrete Thought Content: Normal Perception/Psychotic: Psychotic Current Hallucinations: Visual Attention Span/Concentration: Short Span Fund of Knowledge: Poor fund of knowledge Memory: Poor-immediate, Poor-recent Suicidal Ideation: None Homicidal Ideation: None Insight: Poor Judgment: Poor Impulse Control: Fair Laboratory Tests Test 07/11/16 06:10 Turbidity < 20 Sodium Level 145MEQ/L Potassium Level 4.4MEQ/L Chloride Level 105MEQ/L Carbon Dioxide Level 28MEQ/L Anion Gap 12MEQ/L Blood Urea Nitrogen 18.0MG/DL Creatinine 1.1MG/DL Glomerular Filtration Rate Calc 48 BUN/Creatinine Ratio 16RATIO Glucose Level 106MG/DL Calculated Osmolality 281MOSM/KG Calcium Level 9.2MG/DL Icterus Index < 2 Chemistry Specimen Hemolysis < 15 Assessment and Plan (1) Major neurocognitive disorder Assessment: with behavioral disturbance 07/06/16: Discontinue Seroquel due to concerns of urinary retention; start Risperdal 0.25mg PO BID alternatively. Discussed this with /DPOA, who is in agreement with plan after discussion of risks/benefits. 07/07/16: Cont current medications 07/08/16: Encourage fluid intake. Obtain UA today. 07/09/16: Patient has been started on Rocephin by hospitalist for UTI. Hold Celexa, Lorazepam, Senna, Glycol. RN please use Haldol for PRN first rather than Lorazepam 07/10/16: Increase Risperidone to 0.5mg BID. Patient will benefit from re- hydration with IVF since she has poor intake 07/11/16 Continue current care (2) CVA (cerebral vascular accident) (3) Chronic lymphocytic leukemia (4) CKD (chronic kidney disease), stage III (5) Leukocytosis (6) Hypertension Cont. current psych. meds OSVALDO DUNN MD July 11, 2016 17:37
--- NOTE | 2016-07-11 18:33 | NUR ---
Shift summary and Sleep time No sleep time since up this a.m. Pt has been labile, smiling with group and then fretful and crying, and expressing concern about . Did get to talk to spouse on phone. Wants doll in w/c with her. Will take bites of food and needs prompting to drink. Did well the meds today. At times impulsive to get up, two assist with walking as leans forward and unsteady.
[2016-07-11 19:43] VITALS: PULSE 86; PULSE 89; RESP 16
[2016-07-11] MEDS: ACETAMINOPHEN 325 MG TABLET PO PRN (19:43)
[2016-07-11 21:23] VITALS: BP 142/86; PULSE 93; RESP 18; TEMP 98; O2SAT 98
--- NOTE | 2016-07-11 23:41 | NUR ---
IN BED / PRN tylenol Pt in bed at 2014 after PRN tylenol given. Dementia pain assessment rated pain 4/10. Pt took tylenol crushed in choclate ice cream. Pt then assist x 2 with her shower. Pt physically cooperative with shower but while showering Pt states in calm voice, "Well, I never" "I'm going to tell my Mother." "You girls were nice but you bitches." Pt didn't clench fists or attempt to hit staff. No verbal threats, just name calling. Catheter care done, Pt has low output. Pt fluids pushed, able to drink 100ml of mighty shake before shower. Pt then in bed at 2014 and has been resting ever since. Pt is assist x 2 and we are turning her every 2 hours. Will continue to monitor. Call light in reach. Bed locked and low. Bed alarm on.
--- NOTE | 2016-07-12 01:11 | NUR ---
Mid-shift Summary Pt took PRN tylenol as previously stated and Pt has been resting in bed with eyes closed ever since. Pt did allow this RN to brush teeth, attempted to have Pt help brush teeth but Pt pushed my hand away. Pt did wipe off face when in the shower to help with own cares. Will continue to monitor. Pt turned every 2 hours, heels off the bed. Bed alarm on. Bed locked and low.
--- NOTE | 2016-07-12 03:19 | NUR ---
Chart Check 24 hour chart check completed
--- NOTE | 2016-07-12 05:45 | NUR ---
Shift Summary Pt has been sleeping since 2014. Pt turned every 2 hours. Pt has had no physical aggression, just verbal aggression, as described as earlier. Pt has remained confused. Pt has woke up just briefly when Pt turned and then back to sleep. Heels have been elevated and no BM this shift. No tearfulness this last evening. Pt has been assist x 2 with ambulation when transferring to and from bed and shower. Pt tylenol has been helpful for initial bedtime. Will continue to monitor. Call light in reach. Bed locked and low. Bed alarm on.
--- NOTE | 2016-07-12 06:31 | NUR ---
Low output Pt has had 150mls out since 1500 yesterday. 12.5mls/hr. Pt mouth breathing all night and unable to waken Pt up enough for fluids. Pt has blood draw this AM, will address poor intake and low output with next shift. Will continue to monitor.
--- NOTE | 2016-07-12 07:30 | NUR ---
Pt Assessment and Awake Time Pt awake at this time and provided cloth to wash face and pt very combative, swings arms at nurses and curses nurse "you bitches" and salas care was completed and attends dry and no red areas noted at bottom. Up to w/c and to dining and refuses food or flds at this time. Will continue to offer liquids and food prn. Offered pt. cranberry juice and mighty shake, both refused.
[2016-07-12 07:57] LABS: HCT - HEMATOCRIT 38.3 % (36-46); HGB - HEMOGLOBIN 12.6 GM/DL (12-16); MEAN CORPUSCULAR HGB 30.1 UUG (26-34); MEAN CORPUSCULAR HGB CONC(MCHC 32.9 GM/DL (31-37); MEAN CORPUSCULAR VOLUME 91.6 UM3 (80-100); MEAN PLATELET VOLUME 10.5 UM3 (9.4-12.4); RED BLOOD COUNT 4.18 M/MM3 (4.00-5.20); WBC - WHITE BLOOD COUNT 16.3 T/MM3 (4.5-11.0)
[2016-07-12 08:06] LABS: ANION GAP 10 MEQ/L (5-15); BUN/CREATININE RATIO 17 RATIO (6-26); CALCIUM 9.5 MG/DL (8.4-10.2); CHLORIDE 105 MEQ/L (98-107); CO2 - CARBON DIOXIDE 28 MEQ/L (22-30); CREATININE 1.2 MG/DL (0.7-1.2); GLOMERULAR FILTRATION RATE 43; GLUCOSE 95 MG/DL (65-110); POTASSIUM 3.9 MEQ/L (3.6-5); SODIUM 143 MEQ/L (134-144)
[2016-07-12 08:18] LABS: LYMPHOCYTES # (MANUAL) 11.4 T/MM3 (1-4.8); MONOCYTES # (MANUAL) 0.5 T/MM3 (0-0.8); NEUTROPHILS #(MANUAL)-ABSOLUTE 4.4 T/MM3 (1.8-7.7); TOTAL CELLS COUNTED 100 %
[2016-07-12 08:19] LABS: SMUDGE CELLS 1+
[2016-07-12 09:13] VITALS: RESP 16
[2016-07-12] MEDS: RISPERIDONE 0.5 MG TABLET PO SCH ×2 (09:35→19:25)
[2016-07-12] MEDS: ACETAMINOPHEN 325 MG TABLET PO PRN (09:35)
[2016-07-12] MEDS: HALOPERIDOL 0.5 MG TABLET PO PRN ×2 (09:35→19:35)
[2016-07-12] MEDS: VITAMIN B COMP + C TABLET PO SCH (09:36)
--- NOTE | 2016-07-12 11:21 | GENPN ---
[facility] Subjective Date DATE: 07/12/16 TIME: 11:19 Subjective/Severity of Illness Medications Current Medications Medications (Trade) Dose Ordered Sig/Carlie Start Time Stop Time Status Last Admin Dose Admin Ziprasidone (Geodon) 10 mg Q2HR PRN 07/04/16 12:15 07/04/16 19:54 DC 07/04/16 12:11 10 MG Citalopram Hydrobromide (Celexa) 40 mg DAILY 07/05/16 09:00 Future Hold 07/08/16 08:23 40 MG Lorazepam (Ativan) 1 mg BID 07/04/16 21:00 07/08/16 15:58 DC 07/08/16 08:23 1 MG Polyethylene Glycol (Miralax) 17 g DAILY 07/05/16 09:00 Future Hold 07/08/16 08:23 17 G Quetiapine Fumarate (Seroquel) 25 mg BID 07/04/16 21:00 07/05/16 16:12 DC 07/05/16 09:00 25 MG Vitamin B Complex (Total B + C) 1 tab DAILY 07/05/16 09:00 07/12/16 09:36 1 TAB Miscellaneous Medication (May use PRN orders) 1 PRN PRN 07/04/16 16:00 Haloperidol (Haldol) 1 mg Q6H PRN 07/04/16 16:00 07/12/16 09:35 1 MG Lorazepam (Ativan) 1 mg Q6H PRN 07/04/16 16:00 Lorazepam (Ativan) 1 mg Q6H PRN 07/04/16 16:00 Haloperidol Lactate (Haldol 5 Mg/ml Inj) 1 mg Q6H PRN 07/04/16 16:00 Lorazepam (Ativan Intensol) 1 mg Q6H PRN 07/05/16 04:15 07/11/16 11:55 1 MG Quetiapine Fumarate (Seroquel) 50 mg BID 07/05/16 21:00 07/06/16 06:14 DC 07/05/16 21:00 50 MG Senna/Docusate Sodium (Senna Plus) 2 tab BID 07/05/16 21:00 Future Hold 07/08/16 17:44 2 TAB Quetiapine Fumarate (Seroquel) 50 mg BID 07/06/16 09:00 07/06/16 10:39 DC Risperidone (Risperdal) 0.25 mg BID 07/06/16 21:00 07/10/16 18:48 DC 07/10/16 08:27 0.25 MG Acetaminophen (Tylenol Regular Strength) 1-2 tabs Q5H PRN 07/08/16 04:30 07/12/16 09:35 650 MG Lorazepam (Ativan) 0.5 mg BID 07/08/16 21:00 07/09/16 09:11 DC 07/09/16 08:54 0.5 MG Lorazepam (Ativan) 0.5 mg BID 07/08/16 21:00 Future Hold Cephalexin HCl (Keflex) 500 mg Q8HR 07/09/16 10:00 Future Hold Ceftriaxone Sodium (Rocephin) 1 g DAILY 07/09/16 11:45 07/11/16 08:24 1 G Lidocaine HCl (Xylocaine 1% 5 ml) 21 mg DAILY 07/10/16 09:00 07/11/16 08:26 DC 07/11/16 08:25 21 MG Risperidone (Risperdal) 0.5 mg 07/11/16 09:00 07/12/16 09:35 0.5 MG Lidocaine HCl (Xylocaine 1%) 21 mg DAILY 07/11/16 09:00 07/11/16 08:24 21 MG Bisacodyl (Dulcolax) 10 mg DAILY PRN 07/11/16 14:45 07/11/16 14:48 10 MG Subjective Pt seen and chart examined. Nursing reports pt remains irritable and confused at times but it is improved. Sleeping better. Appetite is poor. On face to face the pt is seen with her family in the room. She is pleasant but only oriented to self. She voices no concerns. Family states they feel she is improving. Time of Service: 10:45 Start Time: :45 Stop Time: 11:00 Care >50% of this visit spent in counseling/coordination care. [facility] Exam Vitals Vital Signs Date Time Temp Pulse Resp B/P Pulse Ox O2 Delivery O2 Flow Rate FiO2 07/12/16 09:13 16 07/11/16 21:23 98.0 93 142/86 98 Room Air Physical examination performed by the hospitalist. Height (Feet): 5 Height (Inches): 3.00 Mental Status Exam Muscle Strength/Tone: Normal Dressing: Casual Grooming: Good Attitude: Cooperative Motor Activity: Normal Eye Contact: Fair Speech: Slowed Volume: Soft Rhythm: Appropriate Rhythm Sensory: Alert Orientation: Oriented to person Mood: Neutral Affect: Congruent Rate of Thoughts: Delayed Thought Organization: [place] Associations: Illogical Abstract Reasoning: Impaired, concrete Thought Content: Delusions Perception/Psychotic: Psychotic Current Hallucinations: Visual Attention Span/Concentration: Short Span Fund of Knowledge: Poor fund of knowledge Memory: Poor-immediate, Poor-recent Suicidal Ideation: None Homicidal Ideation: None Insight: Poor Judgment: Poor Impulse Control: Fair Laboratory Tests Test 07/12/16 07:25 White Blood Count 16.3T/MM3 Red Blood Count 4.18M/MM3 Hemoglobin 12.6GM/DL Hematocrit 38.3% Mean Corpuscular Volume 91.6UM3 Mean Corpuscular Hemoglobin 30.1UUG Mean Corpuscular Hemoglobin Concent 32.9GM/DL RDW Standard Deviation 43.3FL Platelet Count 140T/MM3 Mean Platelet Volume 10.5UM3 Immature Granulocyte % (Auto) % Neutrophils (%) (Auto) % Lymphocytes (%) (Auto) % Monocytes (%) (Auto) % Eosinophils (%) (Auto) % Basophils (%) (Auto) % Absolute Immature Granulocyte (auto T/MM3 Absolute Neutrophils (auto) T/MM3 Absolute Lymphocytes (auto) T/MM3 Absolute Monocytes (auto) T/MM3 Absolute Eosinophils (auto) T/MM3 Absolute Basophils (auto) T/MM3 Neutrophils % (Manual) 27.0% Lymphocytes % (Manual) 70.0% Monocytes % (Manual) 3.0% Absolute Neutrophils (Manual) 4.4T/MM3 Lymphocytes # (Manual) 11.4T/MM3 Monocytes # (Manual) 0.5T/MM3 Smudge Cells 1+ Red Cell Morphology Comment Normal Turbidity < 20 Sodium Level 143MEQ/L Potassium Level 3.9MEQ/L Chloride Level 105MEQ/L Carbon Dioxide Level 28MEQ/L Anion Gap 10MEQ/L Blood Urea Nitrogen 20.0MG/DL Creatinine 1.2MG/DL Glomerular Filtration Rate Calc 43 BUN/Creatinine Ratio 17RATIO Glucose Level 95MG/DL Calculated Osmolality 278MOSM/KG Calcium Level 9.5MG/DL Icterus Index < 2 Chemistry Specimen Hemolysis < 15 Assessment and Plan (1) Major neurocognitive disorder Assessment: with behavioral disturbance 07/06/16: Discontinue Seroquel due to concerns of urinary retention; start Risperdal 0.25mg PO BID alternatively. Discussed this with /DPOA, who is in agreement with plan after discussion of risks/benefits. 07/07/16: Cont current medications 07/08/16: Encourage fluid intake. Obtain UA today. 07/09/16: Patient has been started on Rocephin by hospitalist for UTI. Hold Celexa, Lorazepam, Senna, Glycol. RN please use Haldol for PRN first rather than Lorazepam 07/10/16: Increase Risperidone to 0.5mg BID. Patient will benefit from re- hydration with IVF since she has poor intake 07/11/16 Continue current care 07/12/16 Continue current care (2) CVA (cerebral vascular accident) (3) Chronic lymphocytic leukemia (4) CKD (chronic kidney disease), stage III (5) Leukocytosis (6) Hypertension Cont. current psych. meds OSVALDO DUNN MD July 12, 2016 11:21
[2016-07-12] MEDS: CEFTRIAXONE 1 GRAM INJECTION IM SCH (14:41)
--- NOTE | 2016-07-12 15:30 | NUR ---
Urine Outpt. Noted 150 ml of urine output for last 8 hours. Arline WOODS notified and order noted for bladder retraining and lab in a.m. Will continue to offer fluids, and no IV infusion ordered.
[2016-07-12] MEDS: HALOPERIDOL 1 MG/0.5 ML ORAL LIQUID PO PRN (15:51)
--- NOTE | 2016-07-12 15:51 | NUR ---
JESSICA Rosas Pt.'s family left at 1500 and pt was assisted to bed and repositioned onto side. Cries and is inconsolable from that time. told her he would see her on Thursday, and pt stated she wanted to go home.
--- NOTE | 2016-07-12 16:30 | NUR ---
PRN med response Pt not crying or fretful, but resistant to care. Offered liquids and refused.
[2016-07-12 16:42] VITALS: BP 143/72; PULSE 78; RESP 16; TEMP 98.6; O2SAT 94
--- NOTE | 2016-07-12 18:00 | NUR ---
Shift Summary and Sleep Time Pt refused food and 1700 Risperdal. Offered several options. Curses at nurse and swings arm to move nurse away. Continued up in recliner and will hold doll and grimaces and speech disorganized and sarcastic.No Sleep time since up this a.m. 0745.
[2016-07-12 19:30] VITALS: PULSE 84; RESP 18
--- NOTE | 2016-07-12 21:45 | NUR ---
Bedtime/ Meds Pt. offered HS meds earlier with chocolate ice cream and refused to take them. Offered again now at bedtime; and pt. took the majority. Haldol 1mg po given for noted agitated, aggressive speech. Pt. fiddled with catheter tubing several times and was easily agitated when staff reminded her to leave it alone. Pt. spoke to staff several times using profanity.
[2016-07-12 22:30] VITALS: BP 156/72; PULSE 84; RESP 18; TEMP 98.2
--- NOTE | 2016-07-13 00:13 | NUR ---
Status Assumed patient care at 1915 and assessment attempted at 1930. Patient is in dayroom at time of assessment and frowns/scowls. Sarcastic tone and mostly nonsensical talk; cusses briefly and insults staff, other patients, and visitors (derogatory comments regarding physical appearance and intelligence). Allows only a brief assessment, swatting at staff with an open hand (assessment completed at HS). Pulls at catheter tubing and does not redirect/distract. PRN medication attempted (crushed and placed in ice cream) but patient refuses until HS when she ingests the majority of it (see previous RN note). She does distract some when another patient's dog comes to visit; engaged with staff in brief/pleasant conversation stating that she has a "big, grayish dog at home - he's an old dog." PO fluids encouraged and patient refuses. Resistive with HS cares although she is not physically aggressive; remains verbally aggressive stating that, "I will kill you all." VS are stable - several attempts required due to patient's agitation; unable to obtain O2 saturation - no respiratory distress noted. Ruiz patent and to DD; bladder retraining as ordered and pt. without c/o bladder fullness or pain/discomfort. No tearfulness noted although she states that she is "afraid" when ambulating to her room. Does not understand how to use her FWW - x2 assist is required with ambulation and she needs reassurance to enter her room (illogical/disjointed concerns although she does not appear to be having any visual or auditory hallucinations). Sleeps for short periods after being placed in bed; pleasant with staff when approached - smiles and states, "Thank you - you sleep well, too."
--- NOTE | 2016-07-13 01:55 | NUR ---
Bedtime Patient was in bed at 2145 and asleep by 2200; she awakens for only short periods but is currently sleeping soundly. She was awake all of dayshift. Bed alarm is on and side rails are up x3.
--- NOTE | 2016-07-13 01:57 | NUR ---
Chart Check 24 hour chart check completed
[2016-07-13 05:50] LABS: ANION GAP 9 MEQ/L (5-15); BUN/CREATININE RATIO 15 RATIO (6-26); CALCIUM 9.6 MG/DL (8.4-10.2); CHLORIDE 105 MEQ/L (98-107); CO2 - CARBON DIOXIDE 30 MEQ/L (22-30); CREATININE 1.3 MG/DL (0.7-1.2); GLOMERULAR FILTRATION RATE 39; GLUCOSE 119 MG/DL (65-110); POTASSIUM 4.2 MEQ/L (3.6-5); SODIUM 144 MEQ/L (134-144)
--- NOTE | 2016-07-13 06:11 | NUR ---
Summary Patient is LEVAR to person only this shift (illogical/disjointed thought process). Irritable last evening with noted verbal (threats, cussing, insults) and physical aggression (mild in nature - pushes away and swats at staff with an open hand). Does distract/calm when given space and then re-approached. Pleasant overnight (following prn Haldol) although somewhat guarded with staff ("Will say, "What are you doing here?" but then reassures easily). Hesitant/resistive to any offered fluids/meds. Ruiz remains patent and to DD; clear, light luke returns (225 ml. this shift) - patient tolerates bladder retraining without incidence.
[2016-07-13 08:00] VITALS: BP 138/74; PULSE 78; PULSE 80; RESP 18; TEMP 98.6; O2SAT 96
--- NOTE | 2016-07-13 08:00 | NUR ---
Ruiz discontinued per order. Pt was combative but for a short time.
[2016-07-13] MEDS ORDERED: LEVOFLOXACIN 250 MG TABLET PO ONE (08:30)
--- NOTE | 2016-07-13 08:34 | PNPDOC ---
Subjective Date DATE: 07/13/16 TIME: 08:22 Subjective Marine was lying awake in bed, staring at the ceiling. She did not acknowledge me when I addressed her verbally, nor when I examined her. She has been aggressive and resistant to cares. Her oral intake has been variable. Objective Vital Signs Vital signs Vital Signs Date Time Temp Pulse Resp B/P Pulse Ox O2 Delivery O2 Flow Rate FiO2 07/12/16 22:30 98.2 84 18 156/72 Room Air 07/12/16 16:42 94 Height (Feet): 5 Height (Inches): 3.00 Weight (Kilograms): 59.900 General General Appearance: Well Developed, No Acute Distress Eyes (Brief) Eyes: NOT FOUND: scleral icterus Respiratory (Brief) Respiratory: FOUND: clear all [place], equal bilaterally Cardiovascular (Brief) Cardiac: FOUND: regular rate, regular rhythm Abdomen (Brief) Abdominal: FOUND: BS normo active x4, soft, NOT FOUND: tender (Brief) Comments Salas to dependent drainage, scant amount of straw-colored urine in Salas bag Extremities (Brief) Extremity : Side: Bilateral Extremity Finding: NOT FOUND: edema Musculoskeletal (Brief) Musculoskeletal: NOT FOUND: deformity Integumentary (Brief) Integumentary: FOUND: dry, warm Laboratory Laboratory Laboratory Tests 07/12/16 07:25 07/13/16 05:18 Laboratory Tests 07/12/16 07:25 Sepsis Diagnostic Criteria Sepsis Confirmed/Suspected Infection: No Assessment & Plan Problems: (1) UTI (urinary tract infection) Status: Acute Assessment & Plan: MICROBIOLOGY URINE CULTURE. Final 07/13/16-0741 Organism 1 ESCHERICHIA COLI COLONY COUNT >100,000 CFU/ml Organism 2 ENTEROCOC FAECALIS - (GROUP D) COLONY COUNT >100,000 CFU/ml E COLI E FAECA(D) INTERP DORA INTERP DORA ------ --------- ------ --------- AMOX/CLAV ACID S <=2 AMPICILLIN S 4 CEFAZOLIN S <=4 CEFEPIME S <=1 CEFTAZIDIME S <=1 CEFTRIAXONE S <=1 CIPROFLOXACIN S <=0.25 S 1 ERTAPENEM S <=0.5 GENTAMICIN S <=1 LEVOFLOXACIN S <=0.12 S 1 LINEZOLID S 1 NITROFURANTOIN S <=16 S <=16 TETRACYCLINE S <=1 TOBRAMYCIN S <=1 TRIMETH/SULFA S <=20 PIPERACILL/TAZO S <=4 VANCOMYCIN S 1 (2) Urinary retention Status: Acute Assessment & Plan: Salas inserted on 07/06/16 Discontinued on 07/13/16 (3) Leukocytosis Status: Acute (4) Aggressive behavior Status: Acute (5) Dementia Status: Chronic (6) Irritable bowel syndrome Status: Chronic (7) Chronic lymphocytic leukemia Status: Chronic (8) Hypertension Status: Chronic (9) Sleep apnea Status: Chronic (10) CVA (cerebral vascular accident) Status: Chronic (11) CKD (chronic kidney disease), stage III Status: Chronic (12) Anxiety Status: Acute Plan/Intensity of Service Urine culture was finalized this morning, showing dual organism UTI with both Escherichia coli and enterococcus. The Escherichia coli was sensitive to Rocephin, but not enterococcus. This might explain her ongoing leukocytosis. Will start Levaquin 250 mg daily 7 days, which will cover both Escherichia coli and enterococcus. Discontinue Rocephin. If she is unable to take this orally, may need to start IVF (though nurses doubt pt would tolerate this). Chemistry panel shows slight elevation in creatinine, we'll need to monitor closely while on Levaquin. Psychiatric progress notes reviewed. Code Status Do Not Resuscitate Hospital Course Summary Disclaimer The hospital course summary below is not to be considered part of the above Progress Note. Hospital Course Summary 07/04/16 Agree with admission to [facility]. Complete workup per Dr. Workman. Leukocytosis without evidence of SIRS or active infection. Would not treat at this time. In addition, she also has a history of CLL, which can skew results. There was no documentation of active treatment in the chart. Follow-up CBC on Thursday. History of chronic kidney disease, baseline creatinine unknown. Will reassess on Thursday. History of hypertension, but she is not on any antihypertensives. Will monitor. Provide a safe and supportive environment. 07/05/16- Patient continues agitated, inconsolable. Significant urinary retention last night. Will schedule bladder scan; straight cath PRN. If ongoing retention, place Salas. Assess KUB to make sure she does not have fecal retention that is causing her discomfort. Hx of CLL- likely cause of leukocytosis. Afebrile. Recent tx with Augmentin for URI. Recheck CBC in AM. Schedule tylenol for pain. BP remains elevated- continue to monitor at this time. May need to add medication if persists. 07/07/16 Salas catheter was inserted on 07/06/16 for retention. Urinalysis on 07/04/16 was unremarkable. Leukocytosis has improved, down to 13.3. KUB showed a moderate stool burden. She large soft-liquid bowel movements on Psychiatric progress notes reviewed: Discontinued Seroquel on 07/06/16 due to urinary retention; started Risperdal 0.25mg PO BID. 07/09/16 Salas catheter was inserted on 07/06/16 for retention. Urinalysis on today was positive for UTI. Initially started on Keflex however nursing staff reports she is refusing PO meds. Changed treatment of Rocephin 1 gm IM daily. Will re-evaluate over the next several days and will transition to PO Abx once behaviors have improved. Have nursing staff change out salas cath today. Will work on bladder re- training over the next few days. Continued leukocytosis. Will recheck CBC and BMP tomorrow morning. 07/10/16 Urine culture pending - cont. IM Rocephin since she was refusing Keflex. Continue bladder re-training. Leukocytosis is improving. Labs are stable despite not taking in much oral. Nurses don't think she will do well with an IV. SW recommends talking with her before ordering an IV. Will ask nurses to push oral fluids and will repeat BMP in am. She is hemodynamically stable. Psychiatric progress note reviewed: Hold Celexa, Lorazepam, Senna, Glycol. 07/11/16 Reviewed urine culture which is positive for Escherichia coli. It is pansensitive. Will continue on IM Rocephin as patient was refusing oral medications. Today is day 3 of treatment. Will check CBC and BMP tomorrow morning to follow blood counts, renal function and electrolytes. If patient continues to have hypernatremia, may consider giving a bolus of IV fluids for hydration. Continue to monitor blood pressure as it is mildly elevated, likely secondary to her behaviors. Dulcolax suppository when necessary for bowel motivation 07/13/16 Urine culture was finalized this morning, showing dual organism UTI with both Escherichia coli and enterococcus. The Escherichia coli was sensitive to Rocephin, but not enterococcus. This might explain her ongoing leukocytosis. Will start Levaquin 250 mg daily 7 days, which will cover both Escherichia coli and enterococcus. Discontinue Rocephin. If she is unable to take this orally, may need to start IVF (though nurses doubt pt would tolerate this). Chemistry panel shows slight elevation in creatinine, we'll need to monitor closely while on Levaquin. Psychiatric progress notes reviewed. ASHLEY BEY DIRECT MAIL MANAGER July 13, 2016 08:25
[2016-07-13] MEDS ORDERED: LIDOCAINE 1% (10mg/ml) 5ml VIAL IJ SCH (09:00)
[2016-07-13] MEDS: VITAMIN B COMP + C TABLET PO SCH (09:00)
[2016-07-13] MEDS: RISPERIDONE 0.5 MG TABLET PO SCH ×2 (09:26→17:00)
--- NOTE | 2016-07-13 12:42 | GENPN ---
[facility] Subjective Date DATE: 07/13/16 TIME: 12:40 Subjective/Severity of Illness Medications Current Medications Medications (Trade) Dose Ordered Sig/Carlie Start Time Stop Time Status Last Admin Dose Admin Ziprasidone (Geodon) 10 mg Q2HR PRN 07/04/16 12:15 07/04/16 19:54 DC 07/04/16 12:11 10 MG Citalopram Hydrobromide (Celexa) 40 mg DAILY 07/05/16 09:00 Future Hold 07/08/16 08:23 40 MG Lorazepam (Ativan) 1 mg BID 07/04/16 21:00 07/08/16 15:58 DC 07/08/16 08:23 1 MG Polyethylene Glycol (Miralax) 17 g DAILY 07/05/16 09:00 Future Hold 07/08/16 08:23 17 G Quetiapine Fumarate (Seroquel) 25 mg BID 07/04/16 21:00 07/05/16 16:12 DC 07/05/16 09:00 25 MG Vitamin B Complex (Total B + C) 1 tab DAILY 07/05/16 09:00 07/12/16 09:36 1 TAB Miscellaneous Medication (May use PRN orders) 1 PRN PRN 07/04/16 16:00 Haloperidol (Haldol) 1 mg Q6H PRN 07/04/16 16:00 07/12/16 19:35 1 MG Lorazepam (Ativan) 1 mg Q6H PRN 07/04/16 16:00 Lorazepam (Ativan) 1 mg Q6H PRN 07/04/16 16:00 Haloperidol Lactate (Haldol 5 Mg/ml Inj) 1 mg Q6H PRN 07/04/16 16:00 Lorazepam (Ativan Intensol) 1 mg Q6H PRN 07/05/16 04:15 07/11/16 11:55 1 MG Quetiapine Fumarate (Seroquel) 50 mg BID 07/05/16 21:00 07/06/16 06:14 DC 07/05/16 21:00 50 MG Senna/Docusate Sodium (Senna Plus) 2 tab BID 07/05/16 21:00 Future Hold 07/08/16 17:44 2 TAB Quetiapine Fumarate (Seroquel) 50 mg BID 07/06/16 09:00 07/06/16 10:39 DC Risperidone (Risperdal) 0.25 mg BID 07/06/16 21:00 07/10/16 18:48 DC 07/10/16 08:27 0.25 MG Acetaminophen (Tylenol Regular Strength) 1-2 tabs Q5H PRN 07/08/16 04:30 07/12/16 09:35 650 MG Lorazepam (Ativan) 0.5 mg BID 07/08/16 21:00 07/09/16 09:11 DC 07/09/16 08:54 0.5 MG Lorazepam (Ativan) 0.5 mg BID 07/08/16 21:00 Future Hold Cephalexin HCl (Keflex) 500 mg Q8HR 07/09/16 10:00 07/13/16 08:34 DC Ceftriaxone Sodium (Rocephin) 1 g DAILY 07/09/16 11:45 07/13/16 08:34 DC 07/12/16 14:41 1 G Lidocaine HCl (Xylocaine 1% 5 ml) 21 mg DAILY 07/10/16 09:00 07/11/16 08:26 DC 07/11/16 08:25 21 MG Risperidone (Risperdal) 0.5 mg 07/11/16 09:00 07/13/16 09:26 0.5 MG Lidocaine HCl (Xylocaine 1%) 21 mg DAILY 07/11/16 09:00 07/12/16 14:42 DC 07/11/16 08:24 21 MG Bisacodyl (Dulcolax) 10 mg DAILY PRN 07/11/16 14:45 07/11/16 14:48 10 MG Lidocaine HCl (Xylocaine 1% 5 ml) 21 mg DAILY 07/13/16 09:00 07/13/16 10:01 DC Haloperidol (Haldol Liquid) 1 mg Q6H PRN 07/12/16 16:00 07/12/16 15:51 1 MG Levofloxacin (LEVAQUIN 250 mg tablet) 250 mg ACB 07/14/16 06:30 07/19/16 08:00 Subjective Pt seen and chart examined. Nursing reports pt has been irritable and aggressive with cares at times. Pt did not sleep well and has a poor appetite. On face to face the pt is confused. She is only oriented to self. She denies any pain. Voices no concerns at this time. Time of Service: 10:45 Start Time: 10:45 Stop Time: 11:00 Care >50% of this visit spent in counseling/coordination care. [facility] Exam Vitals Vital Signs Date Time Temp Pulse Resp B/P Pulse Ox O2 Delivery O2 Flow Rate FiO2 07/13/16 08:00 98.6 78 18 138/74 96 Room Air Physical examination performed by the hospitalist. Height (Feet): 5 Height (Inches): 3.00 Mental Status Exam Muscle Strength/Tone: Weak Dressing: Casual Grooming: Good Attitude: Guarded Motor Activity: Retardation Eye Contact: Fair Speech: Slowed Volume: Soft Rhythm: Mumbled Sensory: Alert Orientation: Oriented to person Mood: Neutral Affect: Congruent Rate of Thoughts: Delayed Thought Organization: [place] Associations: Illogical Abstract Reasoning: Impaired, concrete Thought Content: Normal Perception/Psychotic: Hx psychosis,not current Attention Span/Concentration: Short Span Fund of Knowledge: Poor fund of knowledge Memory: Poor-immediate, Poor-recent Suicidal Ideation: None Homicidal Ideation: None Insight: Poor Judgment: Poor Impulse Control: Fair, Poor Laboratory Tests Test 07/13/16 05:18 Turbidity < 20 Sodium Level 144MEQ/L Potassium Level 4.2MEQ/L Chloride Level 105MEQ/L Carbon Dioxide Level 30MEQ/L Anion Gap 9MEQ/L Blood Urea Nitrogen 19.0MG/DL Creatinine 1.3MG/DL Glomerular Filtration Rate Calc 39 BUN/Creatinine Ratio 15RATIO Glucose Level 119MG/DL Calculated Osmolality 280MOSM/KG Calcium Level 9.6MG/DL Icterus Index < 2 Chemistry Specimen Hemolysis < 15 Assessment and Plan (1) Major neurocognitive disorder Assessment: with behavioral disturbance 07/06/16: Discontinue Seroquel due to concerns of urinary retention; start Risperdal 0.25mg PO BID alternatively. Discussed this with /DPOA, who is in agreement with plan after discussion of risks/benefits. 07/07/16: Cont current medications 07/08/16: Encourage fluid intake. Obtain UA today. 07/09/16: Patient has been started on Rocephin by hospitalist for UTI. Hold Celexa, Lorazepam, Senna, Glycol. RN please use Haldol for PRN first rather than Lorazepam 05/04/17: Increase Risperidone to 0.5mg BID. Patient will benefit from re- hydration with IVF since she has poor intake 07/11/16 Continue current care 07/12/16 Continue current care 07/13/16 Continue current care (2) CVA (cerebral vascular accident) (3) Chronic lymphocytic leukemia (4) CKD (chronic kidney disease), stage III (5) Leukocytosis (6) Hypertension Cont. current psych. meds OSVALDO DUNN MD July 13, 2016 12:42
[2016-07-13] MEDS: HALOPERIDOL 1 MG/0.5 ML ORAL LIQUID PO PRN (15:46)
[2016-07-13] MEDS: LORAZEPAM INTENSOL 1mg/0.5ml ORAL SOLUTION SL PRN (16:30)
--- NOTE | 2016-07-13 17:45 | NUR ---
SHIFT SUMMARY 7A-7P Pt is extremely combative with cares. She is not redirected easily. She slapped, cussed at, scratched all staff today. She told staff to "shut up, fuck off, and get the hell away from me multiple times." Soft touch and soft voice were used multiple times at eye level. Pt was combative and swatting at another pt sitting next to her in recliner, which then irritated the other pt. Pt multiple attempts at soft touch, soft voice at eye level, and multiple times of hitting staff pt was given Haldol without result then given Ativan. Pt was much more receptive and smiling and talking with staff an hour after she had both. She still will not eat and only takes sips.
[2016-07-13 19:30] VITALS: BP 133/72; PULSE 72; RESP 16; TEMP 98.2; O2SAT 94
--- NOTE | 2016-07-14 00:24 | NUR ---
Status Assumed patient care at 1915 and assessment completed at 1930. Patient is sitting in dayroom recliner at time of assessment; mood is pleasant and she smiles readily at staff. LEVAR to person only although she does follow simple commands; allows assessment. VS are stable. Takes water when provided but refuses offered snack. Ambulates with x1 assist and FWW from the dayroom to her room (needs encouragement and cueing for direction/appropriate walker use). Notifies staff of need to void; continent of urine and denies dysuria (PVR was 16 ml.). Cooperative with shower - assists when simple commands/encouragement/patience is provided. Responds in a positive manner to staff cues and allows assistance. Politely but adamantly refuses oral cares. No emotional lability or physical/verbal aggressiveness is noted.
--- NOTE | 2016-07-14 00:46 | NUR ---
Bedtime Patient was in bed at 2014 and asleep by 2214. She was awake all of dayshift. Sleeping quietly at the current time. Bed alarm is on and side rails are up x2.
--- NOTE | 2016-07-14 00:52 | NUR ---
Chart Check 24 hour chart check completed
[2016-07-14] MEDS: LEVOFLOXACIN 250 MG TABLET PO SCH (05:56)
--- NOTE | 2016-07-14 06:12 | NUR ---
Summary Patient has been LEVAR to person only this shift and in a pleasant/cooperative mood. Continent of urine and without noted retention per bladder scan for PVR checks. Denies need to void this morning - bladder scan shows 34 ml. and po fluids are encouraged. She takes her A.M. medication whole with several sips of water but refuses any additional po fluids. She smiles this morning and is cooperative with cares. No physical or verbal aggression is noted this shift.
--- NOTE | 2016-07-14 08:42 | PNPDOC ---
Subjective Date DATE: 07/14/16 TIME: 08:38 Subjective Marine was seen at the breakfast table. She was awake and alert to self. I asked her if she was hurting, and she said yes, but then did not tell me location or quality. I asked her if her was coming in today and she replied, "how would I know?". I also asked what her 's name was, and she replied, "why don't you ask him?". She didn't answer any other questions. Her nurse stated that Marine tends to refuse eating or drinking or walking with staff, but will agree to do these activities in her 's presence. Objective Vital Signs Vital signs Vital Signs Date Time Temp Pulse Resp B/P Pulse Ox O2 Delivery O2 Flow Rate FiO2 07/13/16 19:30 72 16 07/13/16 19:30 98.2 133/72 94 Room Air Height (Feet): 5 Height (Inches): 3.00 Weight (Kilograms): 59.900 General General Appearance: Alert, Orientated x 1, No Acute Distress Eyes (Brief) Eyes: FOUND: PERRL, NOT FOUND: scleral icterus ENMT (Brief) ENMT: FOUND: other (she refused to open her mouth, but her lips were dry) Respiratory (Brief) Respiratory: FOUND: clear all [place], equal bilaterally Cardiovascular (Brief) Cardiac: FOUND: regular rate, regular rhythm Abdomen (Brief) Abdominal: FOUND: BS normo active x4, soft, NOT FOUND: distended, tender Extremities (Brief) Extremity : Extremity Finding: NOT FOUND: edema Musculoskeletal (Brief) Musculoskeletal: NOT FOUND: deformity Integumentary (Brief) Integumentary: FOUND: dry, warm Psychiatric (Brief) Psychiatric: FOUND: alert, oriented (1) Laboratory Laboratory Laboratory Tests 07/13/16 05:18 Sepsis Diagnostic Criteria Sepsis Confirmed/Suspected Infection: No Assessment & Plan Problems: (1) UTI (urinary tract infection) Status: Acute Assessment & Plan: MICROBIOLOGY URINE CULTURE. Final 07/13/16-740 Organism 1 ESCHERICHIA COLI COLONY COUNT >100,000 CFU/ml Organism 2 ENTEROCOC FAECALIS - (GROUP D) COLONY COUNT >100,000 CFU/ml E COLI E FAECA(D) INTERP DORA INTERP DORA ------ --------- ------ --------- AMOX/CLAV ACID S <=2 AMPICILLIN S 4 CEFAZOLIN S <=4 CEFEPIME S <=1 CEFTAZIDIME S <=1 CEFTRIAXONE S <=1 CIPROFLOXACIN S <=0.25 S 1 ERTAPENEM S <=0.5 GENTAMICIN S <=1 LEVOFLOXACIN S <=0.12 S 1 LINEZOLID S 1 NITROFURANTOIN S <=16 S <=16 TETRACYCLINE S <=1 TOBRAMYCIN S <=1 TRIMETH/SULFA S <=20 PIPERACILL/TAZO S <=4 VANCOMYCIN S 1 (2) Leukocytosis Status: Acute (3) Urinary retention Status: Resolved Assessment & Plan: Salas inserted on 07/06/16 Discontinued on 07/13/16 (4) Aggressive behavior Status: Acute (5) Dementia Status: Chronic (6) Irritable bowel syndrome Status: Chronic (7) Chronic lymphocytic leukemia Status: Chronic (8) Hypertension Status: Chronic (9) Sleep apnea Status: Chronic (10) CVA (cerebral vascular accident) Status: Chronic (11) CKD (chronic kidney disease), stage III Status: Chronic (12) Anxiety Status: Acute Plan/Intensity of Service Salas catheter was discontinued yesterday, and patient has been able to void with minimal residuals so far. Continue Levaquin for dual organism UTI, day #2. Discussed dosing with pharmacy , and they agreed. Labs reviewed - persistent leukocytosis. BMP - Na 144, BUN 19, Cr 1.2. We'll clarify wishes for IV fluids with patient's family. I do not feel that giving IV fluids would provide any long-term benefits. Later in the morning I met with Marine's and daughter. I updated them on her UTI and new abx as of yesterday, as well as the risks of Levaquin. We discussed the possibility of needing IVF, and both of them agreed that Marine would not do well with an IV. They would like to hold off on an IV unless absolutely necessary. Code Status Do Not Resuscitate Hospital Course Summary Disclaimer The hospital course summary below is not to be considered part of the above Progress Note. Hospital Course Summary 07/04/16 Agree with admission to [facility]. Complete workup per Dr. Workman. Leukocytosis without evidence of SIRS or active infection. Would not treat at this time. In addition, she also has a history of CLL, which can skew results. There was no documentation of active treatment in the chart. Follow-up CBC on Thursday. History of chronic kidney disease, baseline creatinine unknown. Will reassess on Thursday. History of hypertension, but she is not on any antihypertensives. Will monitor. Provide a safe and supportive environment. 07/05/16- Patient continues agitated, inconsolable. Significant urinary retention last night. Will schedule bladder scan; straight cath PRN. If ongoing retention, place Salas. Assess KUB to make sure she does not have fecal retention that is causing her discomfort. Hx of CLL- likely cause of leukocytosis. Afebrile. Recent tx with Augmentin for URI. Recheck CBC in AM. Schedule tylenol for pain. BP remains elevated- continue to monitor at this time. May need to add medication if persists. 07/07/16 Salas catheter was inserted on 07/06/16 for retention. Urinalysis on 07/04/16 was unremarkable. Leukocytosis has improved, down to 13.3. KUB showed a moderate stool burden. She large soft-liquid bowel movements on Psychiatric progress notes reviewed: Discontinued Seroquel on 07/06/16 due to urinary retention; started Risperdal 0.25mg PO BID. 07/09/16 Salas catheter was inserted on 07/06/16 for retention. Urinalysis on today was positive for UTI. Initially started on Keflex however nursing staff reports she is refusing PO meds. Changed treatment of Rocephin 1 gm IM daily. Will re-evaluate over the next several days and will transition to PO Abx once behaviors have improved. Have nursing staff change out salas cath today. Will work on bladder re- training over the next few days. Continued leukocytosis. Will recheck CBC and BMP tomorrow morning. 07/10/16 Urine culture pending - cont. IM Rocephin since she was refusing Keflex. Continue bladder re-training. Leukocytosis is improving. Labs are stable despite not taking in much oral. Nurses don't think she will do well with an IV. SW recommends talking with her before ordering an IV. Will ask nurses to push oral fluids and will repeat BMP in am. She is hemodynamically stable. Psychiatric progress note reviewed: Hold Celexa, Lorazepam, Senna, Glycol. 07/11/16 Reviewed urine culture which is positive for Escherichia coli. It is pansensitive. Will continue on IM Rocephin as patient was refusing oral medications. Today is day 3 of treatment. Will check CBC and BMP tomorrow morning to follow blood counts, renal function and electrolytes. If patient continues to have hypernatremia, may consider giving a bolus of IV fluids for hydration. Continue to monitor blood pressure as it is mildly elevated, likely secondary to her behaviors. Dulcolax suppository when necessary for bowel motivation 07/13/16 Urine culture was finalized this morning, showing dual organism UTI with both Escherichia coli and enterococcus. The Escherichia coli was sensitive to Rocephin, but not enterococcus. This might explain her ongoing leukocytosis. Will start Levaquin 250 mg daily 7 days, which will cover both Escherichia coli and enterococcus. Discontinue Rocephin. If she is unable to take this orally, may need to start IVF (though nurses doubt pt would tolerate this). Chemistry panel shows slight elevation in creatinine, we'll need to monitor closely while on Levaquin. Psychiatric progress notes reviewed. 07/14/16 Salas catheter was discontinued yesterday, and patient has been able to void with minimal residuals so far. Continue Levaquin for dual organism UTI, day #2. Discussed dosing with pharmacy , and they agreed. We'll clarify wishes for IV fluids with patient's family. I do not feel that giving IV fluids would provide any long-term benefits. Later in the morning I met with Marine's and daughter. I updated them on her UTI and new abx as of yesterday, as well as the risks of Levaquin. We discussed the possibility of needing IVF, and both of them agreed that Marine would not do well with an IV. They would like to hold off on an IV unless absolutely necessary. ASHLEY BEY GRISTMILLER July 14, 2016 08:42
[2016-07-14] MEDS: RISPERIDONE 0.5 MG TABLET PO SCH ×2 (08:49→17:00)
[2016-07-14 08:55] LABS: HCT - HEMATOCRIT 38.9 % (36-46); HGB - HEMOGLOBIN 12.7 GM/DL (12-16); MEAN CORPUSCULAR HGB 30.2 UUG (26-34); MEAN CORPUSCULAR HGB CONC(MCHC 32.6 GM/DL (31-37); MEAN CORPUSCULAR VOLUME 92.6 UM3 (80-100); MEAN PLATELET VOLUME 10.5 UM3 (9.4-12.4); WBC - WHITE BLOOD COUNT 16.3 T/MM3 (4.5-11.0)
[2016-07-14] MEDS: VITAMIN B COMP + C TABLET PO SCH (08:55)
[2016-07-14 09:00] VITALS: BP 148/77; PULSE 83; RESP 18; TEMP 98; O2SAT 97
[2016-07-14 09:06] LABS: ANION GAP 10 MEQ/L (5-15); BUN/CREATININE RATIO 16 RATIO (6-26); CALCIUM 9.5 MG/DL (8.4-10.2); CHLORIDE 106 MEQ/L (98-107); CO2 - CARBON DIOXIDE 28 MEQ/L (22-30); CREATININE 1.2 MG/DL (0.7-1.2); GLOMERULAR FILTRATION RATE 43; GLUCOSE 106 MG/DL (65-110); POTASSIUM 4.5 MEQ/L (3.6-5); SODIUM 144 MEQ/L (134-144)
[2016-07-14 09:24] LABS: BAND NEUTROPHILS # 0.2 T/MM3; LYMPHOCYTES # (MANUAL) 10.6 T/MM3 (1-4.8); MONOCYTES # (MANUAL) 0.3 T/MM3 (0-0.8); NEUTROPHILS #(MANUAL)-ABSOLUTE 5.2 T/MM3 (1.8-7.7); TOTAL CELLS COUNTED 100 %
[2016-07-14] MEDS: ACETAMINOPHEN 325 MG TABLET PO PRN (10:22)
[2016-07-14 10:31] VITALS: PULSE 72; RESP 16
--- NOTE | 2016-07-14 10:41 | NUR ---
status pt woke this am at 0830, slept a total of 10.25hrs. was resistive with am cares. no combative behavior. refused to eat any breakfast, when her and daughter arrived on unit pt did eat bites of food and has drank a significant amount of water. pt did take 1 of her am medications with several attempts by this nurse. came and told nurse that he thought she had a headache. stated she was holding her head. gave 650mg of tylenol at 1022. family assisted pt to the bathroom, stated that she did urinate a lot. spoke with regarding starting a IV due to pt not drinking enough. stated he wasn't sure how that would go, thought she would probably just pull it out. KIRSTEN Nunn came in shortly after and visited with family.
--- NOTE | 2016-07-14 11:12 | NUR ---
CENTRAL OFFICE EQUIPMENT INSTALLER--MEETING WITH KIRSTEN [facility] and Deborah Gonzalez APRN, met with pt's (Chriss) and daughter (Ann). Arline provided update to family regarding pt's medical status, including treatment of her UTI. Arline explained that the antibiotic can sometimes cause increased confusion and irritable mood. She also talked about importance of pushing fluids with the pt. She asked the family about their thoughts of trying an IV as an alternative to medication administration and to help hydrate. Neither the daughter nor the thought she would tolerate the IV very well. Arline did mention that her labs were slightly better this morning. She talked about dementia being an progressive disease and pt. is likely to continue to deteriorate. For now, family will spend extra time pushing nourishment and fluids.
--- NOTE | 2016-07-14 11:20 | NUR ---
[facility] RADAR OPERATOR/NAVIGATOR--AM GROUP Pt's family was working with her in pushing hydration and walking with her. She did not attend psychoeducational group facilitated by [facility].
--- NOTE | 2016-07-14 15:19 | NUR ---
CM CM LVM FOR SPOUSE RAMÓN REGARDING VM CM RECEIVED FROM RAMÓN OVER THE WEEKEND.
--- NOTE | 2016-07-14 15:51 | NUR ---
LEATHER DRIER--1:1 Pt. has spent most of the day with her and daughter. Since they left, pt. has been sitting in her recliner in her room looking out the window. At times, she has been observed to be crying. This SW joined pt. in her room when she was sitting quietly. This SW got pt. a Mighty Shake and helped her drink half of it. Pt. was alert, Ox1, calm with pleasant mood. She enjoyed talking about her "baby" (a doll) that was sitting on her bed looking at her. Pt. verbalized many positive statements and smiled during the conversation. She enjoyed having a listener as she reminisced in a somewhat disorganized manner about her parents and her childhood.
[2016-07-14 16:00] VITALS: BP 149/69; PULSE 73; RESP 18; TEMP 98; O2SAT 98
--- NOTE | 2016-07-14 18:06 | NUR ---
summary pt did take medication with several attempts. has been combative at times. pt hits and swats at staff while taking pt to the bathroom. pt did eat 50% of lunch while her family is present. pt is pleasant while her is present. pt ate a half a sandwich and drank a cup of water for supper. pt has crying episode after family leaves.
--- NOTE | 2016-07-14 18:11 | NUR ---
sleep time pt has not slept since waking this am.
[2016-07-14 19:35] VITALS: BP 151/74; PULSE 81; RESP 17; TEMP 98.2; O2SAT 96
--- NOTE | 2016-07-14 21:42 | NUR ---
SUMMARY PATIENT HAS BEEN SITTING IN THE DAYROOM ALL EVENING WATCHING TV. SHE CONTINUES TO BE CONFUSED BUT DID NOT HAVE ANY AGGRESSIVE BEHAVIORS. SHE DID HAVE SOME TEARFUL MOMENTS BUT SHE IMMEDIATELY AFTER A FEW MINUTES FORGOT ABOUT IT. SHE TOOK ALL HER NIGHT MEDICATIONS INDICATED. ENCOURAGED FLUIDS THROUGHOUT THE EVENING, PATIENT REFUSED AT TIMES BUT DID INTAKE HALF OF A MIGHTY SHAKE AND TOOK SEVERAL SIPS OF WATER WHEN OFFERED. PATIENT REMAINED IN THE DAYROOM SITTING WATCHING TV AT END OF SHIFT.
[2016-07-15] MEDS: HALOPERIDOL 1 MG/0.5 ML ORAL LIQUID PO PRN (03:15)
--- NOTE | 2016-07-15 04:39 | NUR ---
PRN/Straight cath Patient had not voided for 14hours, staff got patient up to restroom. Patient did not void, was hitting and digging nails into staff during cares. Once back in bed bladder scanned patient. Patient had 818ml. Tele hospitalist notified, Order to continue with straight cath instead of restarting salas. Patient received prn Haldol 1mg po at 0315 prior to straight cath. When going into straight cath patient, she had been incontinent of urine. PVR obtained, showed 642ml. Continued with Straight cath order due to greater than 500ml parameter. Patient continued to try to hit, kick, and claw staff during straight cath. 600ml output. Patient started to calm once cares were done.
[2016-07-15] MEDS: LEVOFLOXACIN 250 MG TABLET PO SCH (05:14)
--- NOTE | 2016-07-15 06:36 | NUR ---
summary patient slept from [id number]. Then patient laid awake in bed talking to self. Patient was only aggressive trying to hit, kick, and dig nails into staff during cares. Patient continued to have episodes of retention. Patient was straight cathed see prn/straight cath note. PRN Haldol 1mg given po to be able to preform cath. Patient did calm once cares were done. Patient then laid awake in bed until falling asleep at 0515. patient is currently asleep at this time.
[2016-07-15 08:00] VITALS: BP 144/66; PULSE 86; PULSE 91; RESP 16; TEMP 98; O2SAT 96
[2016-07-15] MEDS: VITAMIN B COMP + C TABLET PO SCH (08:43)
[2016-07-15] MEDS: RISPERIDONE 0.5 MG TABLET PO SCH ×2 (08:43→17:33)
--- NOTE | 2016-07-15 13:07 | NUR ---
family communication spoke with family about giving IV fluids and family refused, states to continue pushing oral fluids since she has been drinking well when he is here.
--- NOTE | 2016-07-15 15:03 | NUR ---
sleep note patient went to sleep at 2245 and woke up at 2315, then patient went to sleep at 0515 and woke up at 0700 this morning.
[2016-07-15] MEDS: ACETAMINOPHEN 325 MG TABLET PO PRN (16:46)
[2016-07-15 16:49] VITALS: BP 181/81; PULSE 89; RESP 16; TEMP 97.6; O2SAT 95
--- NOTE | 2016-07-15 16:49 | GENPN ---
[facility] Subjective Date DATE: 07/14/16 TIME: 18:32 Subjective/Severity of Illness Medications Current Medications Medications (Trade) Dose Ordered Sig/Carlie Start Time Stop Time Status Last Admin Dose Admin Ziprasidone (Geodon) 10 mg Q2HR PRN 07/04/16 12:15 07/04/16 19:54 DC 07/04/16 12:11 10 MG Citalopram Hydrobromide (Celexa) 40 mg DAILY 07/05/16 09:00 Future Hold 07/08/16 08:23 40 MG Lorazepam (Ativan) 1 mg BID 07/04/16 21:00 07/08/16 15:58 DC 07/08/16 08:23 1 MG Polyethylene Glycol (Miralax) 17 g DAILY 07/05/16 09:00 Future Hold 07/08/16 08:23 17 G Quetiapine Fumarate (Seroquel) 25 mg BID 07/04/16 21:00 07/05/16 16:12 DC 07/05/16 09:00 25 MG Vitamin B Complex (Total B + C) 1 tab DAILY 07/05/16 09:00 07/12/16 09:36 1 TAB Miscellaneous Medication (May use PRN orders) 1 PRN PRN 07/04/16 16:00 Haloperidol (Haldol) 1 mg Q6H PRN 07/04/16 16:00 07/12/16 19:35 1 MG Lorazepam (Ativan) 1 mg Q6H PRN 07/04/16 16:00 Lorazepam (Ativan) 1 mg Q6H PRN 07/04/16 16:00 Haloperidol Lactate (Haldol 5 Mg/ml Inj) 1 mg Q6H PRN 07/04/16 16:00 Lorazepam (Ativan Intensol) 1 mg Q6H PRN 07/05/16 04:15 07/13/16 16:30 1 MG Quetiapine Fumarate (Seroquel) 50 mg BID 07/05/16 21:00 07/06/16 06:14 DC 07/05/16 21:00 50 MG Senna/Docusate Sodium (Senna Plus) 2 tab BID 07/05/16 21:00 Future Hold 07/08/16 17:44 2 TAB Quetiapine Fumarate (Seroquel) 50 mg BID 07/06/16 09:00 07/06/16 10:39 DC Risperidone (Risperdal) 0.25 mg BID 07/06/16 21:00 07/10/16 18:48 DC 07/10/16 08:27 0.25 MG Acetaminophen (Tylenol Regular Strength) 1-2 tabs Q5H PRN 07/08/16 04:30 07/14/16 10:22 650 MG Lorazepam (Ativan) 0.5 mg BID 07/08/16 21:00 07/09/16 09:11 DC 07/09/16 08:54 0.5 MG Lorazepam (Ativan) 0.5 mg BID 07/08/16 21:00 Future Hold Cephalexin HCl (Keflex) 500 mg Q8HR 07/09/16 10:00 07/13/16 08:34 DC Ceftriaxone Sodium (Rocephin) 1 g DAILY 07/09/16 11:45 07/13/16 08:34 DC 07/12/16 14:41 1 G Lidocaine HCl (Xylocaine 1% 5 ml) 21 mg DAILY 07/10/16 09:00 07/11/16 08:26 DC 07/11/16 08:25 21 MG Risperidone (Risperdal) 0.5 mg 07/11/16 09:00 07/14/16 08:49 0.5 MG Lidocaine HCl (Xylocaine 1%) 21 mg DAILY 07/11/16 09:00 07/12/16 14:42 DC 07/11/16 08:24 21 MG Bisacodyl (Dulcolax) 10 mg DAILY PRN 07/11/16 14:45 07/11/16 14:48 10 MG Lidocaine HCl (Xylocaine 1% 5 ml) 21 mg DAILY 07/13/16 09:00 07/13/16 10:01 DC Haloperidol (Haldol Liquid) 1 mg Q6H PRN 07/12/16 16:00 07/13/16 15:46 1 MG Levofloxacin (LEVAQUIN 250 mg tablet) 250 mg ACB 07/14/16 06:30 07/19/16 08:00 07/14/16 05:56 250 MG Subjective Patient seen and chart reviewed. Case discussed with treatment team. On interview, patient is sitting in dayroom with peers and is pleasantly confused on approach. She tells me repeatedly that she is "pretty tired, ready for bed" etc. She states that her visited today when prompted by her nurse. Patient denies any SI, HI or AVH. Patient denies any adverse side effects related to psychotropic medications. Nursing staff report patient is significantly more cooperative in regards to eating, cares when family is present. She hits/swats at staff at times. Continues to have urinary retention requiring straight cath at times. Patient was tearful in evening before bed. Patient slept 10.25 hours overnight. VSS. Patient eats better with encouragement from family. BAND SINGER has discussed IV fluids with family who prefers to push PO fluids. Psychotropic PRNs required in the past 24 hours: Haldol 1mg on 07/13 at 15:46, Ativan 1mg on 07/13 at 16:30. Time of Service: 10:45 Start Time: 19:20 Stop Time: 19:40 Care >50% of this visit spent in counseling/coordination care. [facility] Exam Vitals Vital Signs Date Time Temp Pulse Resp B/P Pulse Ox O2 Delivery O2 Flow Rate FiO2 07/14/16 16:00 98.0 73 18 149/69 98 Room Air Physical examination performed by the hospitalist. Height (Feet): 5 Height (Inches): 3.00 Mental Status Exam Dressing: Casual Grooming: Fair Attitude: Combative Motor Activity: Retardation Eye Contact: Good Speech: Slowed Volume: Soft Rhythm: Appropriate Rhythm, Paucity of Language Sensory: Alert Orientation: Disoriented to time, Disoriented to place, Oriented to person Mood: Neutral Affect: Labile (better with family) Rate of Thoughts: Delayed Thought Organization: Confused Associations: Illogical Abstract Reasoning: Impaired, concrete Thought Content: Other (Poverty of thought) Perception/Psychotic: Perception Normal Attention Span/Concentration: Inattentive Language: Naming Impaired Fund of Knowledge: Poor fund of knowledge Memory: Poor-immediate, Poor-recent, Poor-remote Suicidal Ideation: Denies Homicidal Ideation: Denies Insight: Limited Judgment: Limited Impulse Control: Other (Limiited) Laboratory Tests Test 07/14/16 08:19 White Blood Count 16.3T/MM3 Red Blood Count 4.20M/MM3 Hemoglobin 12.7GM/DL Hematocrit 38.9% Mean Corpuscular Volume 92.6UM3 Mean Corpuscular Hemoglobin 30.2UUG Mean Corpuscular Hemoglobin Concent 32.6GM/DL RDW Standard Deviation 44.5FL Platelet Count 144T/MM3 Mean Platelet Volume 10.5UM3 Immature Granulocyte % (Auto) % Neutrophils (%) (Auto) % Lymphocytes (%) (Auto) % Monocytes (%) (Auto) % Eosinophils (%) (Auto) % Basophils (%) (Auto) % Absolute Immature Granulocyte (auto T/MM3 Absolute Neutrophils (auto) T/MM3 Absolute Lymphocytes (auto) T/MM3 Absolute Monocytes (auto) T/MM3 Absolute Eosinophils (auto) T/MM3 Absolute Basophils (auto) T/MM3 Neutrophils % (Manual) 32.0% Band Neutrophils % 1.0% Lymphocytes % (Manual) 65.0% Monocytes % (Manual) 2.0% Absolute Neutrophils (Manual) 5.2T/MM3 Band Neutrophils # 0.2T/MM3 Lymphocytes # (Manual) 10.6T/MM3 Monocytes # (Manual) 0.3T/MM3 Red Cell Morphology Comment Normal Turbidity < 20 Sodium Level 144MEQ/L Potassium Level 4.5MEQ/L Chloride Level 106MEQ/L Carbon Dioxide Level 28MEQ/L Anion Gap 10MEQ/L Blood Urea Nitrogen 19.0MG/DL Creatinine 1.2MG/DL Glomerular Filtration Rate Calc 43 BUN/Creatinine Ratio 16RATIO Glucose Level 106MG/DL Calculated Osmolality 279MOSM/KG Calcium Level 9.5MG/DL Icterus Index < 2 Chemistry Specimen Hemolysis < 15 Assessment and Plan (1) Major neurocognitive disorder Assessment: with behavioral disturbance 07/06/16: Discontinue Seroquel due to concerns of urinary retention; start Risperdal 0.25mg PO BID alternatively. Discussed this with /DPOA, who is in agreement with plan after discussion of risks/benefits. 07/07/16: Cont current medications 07/08/16: Encourage fluid intake. Obtain UA today. 07/09/16: Patient has been started on Rocephin by hospitalist for UTI. Hold Celexa, Lorazepam, Senna, Glycol. RN please use Haldol for PRN first rather than Lorazepam 07/10/16: Increase Risperidone to 0.5mg BID. Patient will benefit from re- hydration with IVF since she has poor intake 07/11/16 Continue current care 07/12/16 Continue current care 07/13/16 Continue current care 07/14/16: Continue current care - will discuss use of Levofloxacin with medical team. Family wishes to continue encouraging PO intake rather than IV fluids as recommended by medical team. (2) CVA (cerebral vascular accident) (3) Chronic lymphocytic leukemia (4) CKD (chronic kidney disease), stage III (5) Leukocytosis (6) Hypertension Cont. current psych. meds RUTHANN ESPINAL MD July 14, 2016 18:32
--- NOTE | 2016-07-15 16:55 | GENPN ---
[facility] Subjective Date DATE: 07/15/16 TIME: 16:49 Subjective/Severity of Illness Medications Current Medications Medications (Trade) Dose Ordered Sig/Carlie Start Time Stop Time Status Last Admin Dose Admin Ziprasidone (Geodon) 10 mg Q2HR PRN 07/04/16 12:15 07/04/16 19:54 DC 07/04/16 12:11 10 MG Citalopram Hydrobromide (Celexa) 40 mg DAILY 07/05/16 09:00 Future Hold 07/08/16 08:23 40 MG Lorazepam (Ativan) 1 mg BID 07/04/16 21:00 07/08/16 15:58 DC 07/08/16 08:23 1 MG Polyethylene Glycol (Miralax) 17 g DAILY 07/05/16 09:00 Future Hold 07/08/16 08:23 17 G Quetiapine Fumarate (Seroquel) 25 mg BID 07/04/16 21:00 07/05/16 16:12 DC 07/05/16 09:00 25 MG Vitamin B Complex (Total B + C) 1 tab DAILY 07/05/16 09:00 07/15/16 08:43 1 TAB Miscellaneous Medication (May use PRN orders) 1 PRN PRN 07/04/16 16:00 Haloperidol (Haldol) 1 mg Q6H PRN 07/04/16 16:00 07/12/16 19:35 1 MG Lorazepam (Ativan) 1 mg Q6H PRN 07/04/16 16:00 Lorazepam (Ativan) 1 mg Q6H PRN 07/04/16 16:00 Haloperidol Lactate (Haldol 5 Mg/ml Inj) 1 mg Q6H PRN 07/04/16 16:00 Lorazepam (Ativan Intensol) 1 mg Q6H PRN 07/05/16 04:15 07/13/16 16:30 1 MG Quetiapine Fumarate (Seroquel) 50 mg BID 07/05/16 21:00 07/06/16 06:14 DC 07/05/16 21:00 50 MG Senna/Docusate Sodium (Senna Plus) 2 tab BID 07/05/16 21:00 Future Hold 07/08/16 17:44 2 TAB Quetiapine Fumarate (Seroquel) 50 mg BID 07/06/16 09:00 07/06/16 10:39 DC Risperidone (Risperdal) 0.25 mg BID 07/06/16 21:00 07/10/16 18:48 DC 07/10/16 08:27 0.25 MG Acetaminophen (Tylenol Regular Strength) 1-2 tabs Q5H PRN 07/08/16 04:30 07/14/16 10:22 650 MG Lorazepam (Ativan) 0.5 mg BID 07/08/16 21:00 07/09/16 09:11 DC 07/09/16 08:54 0.5 MG Lorazepam (Ativan) 0.5 mg BID 07/08/16 21:00 Future Hold Cephalexin HCl (Keflex) 500 mg Q8HR 07/09/16 10:00 07/13/16 08:34 DC Ceftriaxone Sodium (Rocephin) 1 g DAILY 07/09/16 11:45 07/13/16 08:34 DC 07/12/16 14:41 1 G Lidocaine HCl (Xylocaine 1% 5 ml) 21 mg DAILY 07/10/16 09:00 07/11/16 08:26 DC 07/11/16 08:25 21 MG Risperidone (Risperdal) 0.5 mg 07/11/16 09:00 07/15/16 08:43 0.5 MG Lidocaine HCl (Xylocaine 1%) 21 mg DAILY 07/11/16 09:00 07/12/16 14:42 DC 07/11/16 08:24 21 MG Bisacodyl (Dulcolax) 10 mg DAILY PRN 07/11/16 14:45 07/11/16 14:48 10 MG Lidocaine HCl (Xylocaine 1% 5 ml) 21 mg DAILY 07/13/16 09:00 07/13/16 10:01 DC Haloperidol (Haldol Liquid) 1 mg Q6H PRN 07/12/16 16:00 07/15/16 03:15 1 MG Levofloxacin (LEVAQUIN 250 mg tablet) 250 mg ACB 07/14/16 06:30 07/19/16 08:00 07/15/16 05:14 250 MG Subjective Patient seen and chart reviewed. Case discussed with treatment team. On interview, patient is sitting in dayroom with peers and is pleasantly confused on approach. She tells me her mood is good and has no insight into hospitalization, looking confused when I asked her about events leading to admission. is visiting today and patient does well while he is present. Patient denies any SI, HI or AVH. Patient denies any adverse side effects related to psychotropic medications. Nursing staff report patient is significantly more cooperative in regards to eating, cares when family is present. She is a bit resistive with cares still. Continues to have urinary retention requiring straight cath at times. Patient slept poorly overnight with interrupted sleep. VSS. Patient eats better with encouragement from family. BEREAVEMENT COORDINATOR has discussed IV fluids with family who prefers to push PO fluids. Psychotropic PRNs required in the past 24 hours: Haldol 1mg at 0315. Time of Service: 10:45 Start Time: 12:30 Stop Time: 12:50 Care >50% of this visit spent in counseling/coordination care. [facility] Exam Vitals Vital Signs Date Time Temp Pulse Resp B/P Pulse Ox O2 Delivery O2 Flow Rate FiO2 07/15/16 08:00 98.0 91 16 144/66 96 Room Air Physical examination performed by the hospitalist. Height (Feet): 5 Height (Inches): 3.00 Mental Status Exam Muscle Strength/Tone: Weak Dressing: Casual Grooming: Fair Attitude: Cooperative Motor Activity: Retardation Eye Contact: Fair Speech: Slowed Volume: Soft Rhythm: Appropriate Rhythm, Paucity of Language Sensory: Alert Orientation: Disoriented to time, Disoriented to place, Disoriented to situation, Oriented to person Mood: Euthymic Affect: Other (More stable than upon admission) Rate of Thoughts: Delayed Thought Organization: Confused Associations: Illogical Abstract Reasoning: Impaired, concrete Thought Content: Other (Poverty of thought) Perception/Psychotic: Perception Normal Attention Span/Concentration: Short Span Fund of Knowledge: Poor fund of knowledge Memory: Poor-immediate, Poor-recent, Poor-remote Suicidal Ideation: Denies Homicidal Ideation: Denies Insight: Impaired Judgment: Impaired Impulse Control: Fair (improving) Assessment and Plan (1) Major neurocognitive disorder Assessment: with behavioral disturbance 07/06/16: Discontinue Seroquel due to concerns of urinary retention; start Risperdal 0.25mg PO BID alternatively. Discussed this with /DPOA, who is in agreement with plan after discussion of risks/benefits. 07/07/16: Cont current medications 07/08/16: Encourage fluid intake. Obtain UA today. 07/09/16: Patient has been started on Rocephin by hospitalist for UTI. Hold Celexa, Lorazepam, Senna, Glycol. RN please use Haldol for PRN first rather than Lorazepam 07/10/16: Increase Risperidone to 0.5mg BID. Patient will benefit from re- hydration with IVF since she has poor intake 07/11/16 Continue current care 07/12/16 Continue current care 07/13/16 Continue current care 07/14/16: Continue current care - will discuss use of Levofloxacin with medical team. Family wishes to continue encouraging PO intake rather than IV fluids as recommended by medical team. 07/15/16: Improving overall - suspect behavior will continue to improve as course of antibiotics progresses and is completed. (2) CVA (cerebral vascular accident) (3) Chronic lymphocytic leukemia (4) CKD (chronic kidney disease), stage III (5) Leukocytosis (6) Hypertension Cont. current psych. meds RUTHANN ESPINAL MD July 15, 2016 16:53
[2016-07-15 17:13] VITALS: BP 180/95
--- NOTE | 2016-07-15 19:19 | NUR ---
SHIFT SUMMARY patient has been pleasant, cooperative with cares and compliant with medications, patient has been taking her medications whole, was present most of the shift today he left at after supper and said he will be back tomorrow. Patient allow staff to assist with cares, was present, during cares, there was one time in the evening where patient did refused to allow staff and to help with cares. Patient had a bowel movement today, she was able to void several times today, this morning PVR was check and patient had a total of 140 ml. Patient complain of pain on her left leg, Tylenol 650 mg PO was given this evening, during follow patient denied any pain. patient BP was high this evening, (181/81), blood pressure was recheck 45 minutes later and it continued to be high 180/95 CUSTOM FRAME ASSEMBLERMarilou vargas was notified and order to continue to monitor and recheck in a couple of hours. operations supervisor 2nd shift nurses were notified to follow up with telehospitalist if blood pressure continues to be high. Patient denies needs or concerns at the moment.
[2016-07-15 20:00] VITALS: BP 153/75; PULSE 67; O2SAT 95
--- NOTE | 2016-07-15 22:01 | NUR ---
SUMMARY PATIENT HAS BEEN IN HER ROOM SITTING UP IN BED. SHE HAS BEEN COOPERATIVE WITH STAFF. SHE TOOK A BATH THIS EVENING AND HAD NO AGGRESSIVE BEHAVIORS. SHE HAS VOIDED X1 MODERATE AMOUNT THIS SHIFT. FLUIDS WERE ENCOURAGED. PATIENT'S BP READINGS HAVE BEEN ELEVATED THE PAST COUPLE OF DAYS, DR. ORTIZ WAS CONTACTED AND HE STATED "TO LET IT RIDE FOR NOW". WILL CONTINUE TO MONITOR VITALS. NO PRN'S GIVEN OF NOW. PATIENT REMAINED IN BED WITH BED RAILS UP X2 AND BED ALARM ON.
[2016-07-15 22:14] VITALS: BP 176/72; PULSE 69; RESP 14; TEMP 98.1; O2SAT 97
--- NOTE | 2016-07-16 05:24 | NUR ---
Summary Pt went to bed at 2114 and has slept all night, pt is currently sleeping. Pt had no behaviors and no PRNs given this shift. Pt was checked routinely for incontinence. Bed in low position, SR up x 2, call light in reach but pt does not use and bed alarm on and functioning. Will continue to monitor.
[2016-07-16 08:47] VITALS: BP 150/88; PULSE 80; RESP 18; TEMP 97.8
[2016-07-16] MEDS: LEVOFLOXACIN 250 MG TABLET PO SCH (08:47)
[2016-07-16] MEDS: RISPERIDONE 0.5 MG TABLET PO SCH ×2 (08:47→17:01)
[2016-07-16] MEDS: VITAMIN B COMP + C TABLET PO SCH (08:47)
--- NOTE | 2016-07-16 09:58 | PNPDOC ---
MEGHA SPRAGUE V METAL STAMPING MACHINE OPERATOR 07/16/16 0953: Subjective Date DATE: 07/16/16 TIME: 09:44 Subjective Marine is seen today while laying in bed. Her eyes are open and she mumbles words that are non- comprehendible. She pushed me away during attempted physical exam. She is comfortably breathing on room air without distress. BP 150 /88. Objective Vital Signs Vital signs Vital Signs Date Time Temp Pulse Resp B/P Pulse Ox O2 Delivery O2 Flow Rate FiO2 07/16/16 08:47 97.8 80 18 150/88 07/15/16 22:14 97 Room Air Height (Feet): 5 Height (Inches): 3.00 Weight (Kilograms): 59.900 General General Appearance: Alert, Confused, Cooperative, No Acute Distress Eyes (Brief) Eyes: FOUND: EOMI ENMT (Brief) ENMT: FOUND: mucosa moist, normal dentition, NOT FOUND: pharnyx erythema Neck (Brief) Neck: FOUND: midline, NOT FOUND: adenopathy, carotid bruits, tracheal deviation Cardiovascular (Brief) Cardiac: FOUND: regular rate, regular rhythm, NOT FOUND: murmur, pedal edema Capillary Refill: <2 sec Lymphatic (Brief) Lymphatic: NOT FOUND: adenopathy Musculoskeletal (Brief) Musculoskeletal: NOT FOUND: tenderness Integumentary (Brief) Integumentary: FOUND: dry, pink, warm Neurologic (Brief) Neurological: FOUND: cranial 2-12 intact Psychiatric (Brief) Psychiatric: FOUND: alert Sepsis Diagnostic Criteria Sepsis Confirmed/Suspected Infection: No Assessment & Plan Problems: (1) UTI (urinary tract infection) Status: Acute Assessment & Plan: MICROBIOLOGY URINE CULTURE. Final 07/13/16-41 Organism 1 ESCHERICHIA COLI COLONY COUNT >100,000 CFU/ml Organism 2 ENTEROCOC FAECALIS - (GROUP D) COLONY COUNT >100,000 CFU/ml E COLI E FAECA(D) INTERP DORA INTERP DORA ------ --------- ------ --------- AMOX/CLAV ACID S <=2 AMPICILLIN S 4 CEFAZOLIN S <=4 CEFEPIME S <=1 CEFTAZIDIME S <=1 CEFTRIAXONE S <=1 CIPROFLOXACIN S <=0.25 S 1 ERTAPENEM S <=0.5 GENTAMICIN S <=1 LEVOFLOXACIN S <=0.12 S 1 LINEZOLID S 1 NITROFURANTOIN S <=16 S <=16 TETRACYCLINE S <=1 TOBRAMYCIN S <=1 TRIMETH/SULFA S <=20 PIPERACILL/TAZO S <=4 VANCOMYCIN S 1 (2) Leukocytosis Status: Acute (3) Urinary retention Status: Resolved Assessment & Plan: Salas inserted on 07/06/16 Discontinued on 07/13/16 (4) Aggressive behavior Status: Acute (5) Dementia Status: Chronic (6) Irritable bowel syndrome Status: Chronic (7) Chronic lymphocytic leukemia Status: Chronic (8) Hypertension Status: Chronic (9) Sleep apnea Status: Chronic (10) CVA (cerebral vascular accident) Status: Chronic (11) CKD (chronic kidney disease), stage III Status: Chronic (12) Anxiety Status: Acute Plan/Intensity of Service 07/16/16 Today is day 4 of antimicrobial treatment of urinary tract infection with multiple pathogens present. Continue with Levaquin daily. Planned. End date of . As Levaquin may cause some changes in mental status and/or confusion. This is the only option for treatment of both Escherichia coli and Enterococ Faecalis. Recheck CBC and BMP today given persistent leukocytosis Continue to monitor blood pressure as she is borderline elevated. If we need to consider initiating an antihypertensive medication need to discuss this further with patient's family. Family has preferred to hold off on IV fluids. Will continue to encourage oral intake. Psychiatric notes reviewed Code Status Do Not Resuscitate Hospital Course Summary Disclaimer The hospital course summary below is not to be considered part of the above Progress Note. Hospital Course Summary 07/04/16 Agree with admission to [facility]. Complete workup per Dr. Workman. Leukocytosis without evidence of SIRS or active infection. Would not treat at this time. In addition, she also has a history of CLL, which can skew results. There was no documentation of active treatment in the chart. Follow-up CBC on Thursday. History of chronic kidney disease, baseline creatinine unknown. Will reassess on Thursday. History of hypertension, but she is not on any antihypertensives. Will monitor. Provide a safe and supportive environment. 07/05/16- Patient continues agitated, inconsolable. Significant urinary retention last night. Will schedule bladder scan; straight cath PRN. If ongoing retention, place Salas. Assess KUB to make sure she does not have fecal retention that is causing her discomfort. Hx of CLL- likely cause of leukocytosis. Afebrile. Recent tx with Augmentin for URI. Recheck CBC in AM. Schedule tylenol for pain. BP remains elevated- continue to monitor at this time. May need to add medication if persists. 07/07/16 Salas catheter was inserted on 07/06/16 for retention. Urinalysis on 07/04/16 was unremarkable. Leukocytosis has improved, down to 13.3. KUB showed a moderate stool burden. She large soft-liquid bowel movements on Psychiatric progress notes reviewed: Discontinued Seroquel on 07/06/16 due to urinary retention; started Risperdal 0.25mg PO BID. 07/09/16 Salas catheter was inserted on 07/06/16 for retention. Urinalysis on today was positive for UTI. Initially started on Keflex however nursing staff reports she is refusing PO meds. Changed treatment of Rocephin 1 gm IM daily. Will re-evaluate over the next several days and will transition to PO Abx once behaviors have improved. Have nursing staff change out salas cath today. Will work on bladder re- training over the next few days. Continued leukocytosis. Will recheck CBC and BMP tomorrow morning. 07/10/16 Urine culture pending - cont. IM Rocephin since she was refusing Keflex. Continue bladder re-training. Leukocytosis is improving. Labs are stable despite not taking in much oral. Nurses don't think she will do well with an IV. recommends talking with her before ordering an IV. Will ask nurses to push oral fluids and will repeat BMP in am. She is hemodynamically stable. Psychiatric progress note reviewed: Hold Celexa, Lorazepam, Senna, Glycol. 07/11/16 Reviewed urine culture which is positive for Escherichia coli. It is pansensitive. Will continue on IM Rocephin as patient was refusing oral medications. Today is day 3 of treatment. Will check CBC and BMP tomorrow morning to follow blood counts, renal function and electrolytes. If patient continues to have hypernatremia, may consider giving a bolus of IV fluids for hydration. Continue to monitor blood pressure as it is mildly elevated, likely secondary to her behaviors. Dulcolax suppository when necessary for bowel motivation 07/13/16 Urine culture was finalized this morning, showing dual organism UTI with both Escherichia coli and enterococcus. The Escherichia coli was sensitive to Rocephin, but not enterococcus. This might explain her ongoing leukocytosis. Will start Levaquin 250 mg daily 7 days, which will cover both Escherichia coli and enterococcus. Discontinue Rocephin. If she is unable to take this orally, may need to start IVF (though nurses doubt pt would tolerate this). Chemistry panel shows slight elevation in creatinine, we'll need to monitor closely while on Levaquin. Psychiatric progress notes reviewed. 07/14/16 Salas catheter was discontinued yesterday, and patient has been able to void with minimal residuals so far. Continue Levaquin for dual organism UTI, day #2. Discussed dosing with pharmacy , and they agreed. We'll clarify wishes for IV fluids with patient's family. I do not feel that giving IV fluids would provide any long-term benefits. Later in the morning I met with Marine's and daughter. I updated them on her UTI and new abx as of yesterday, as well as the risks of Levaquin. We discussed the possibility of needing IVF, and both of them agreed that Marine would not do well with an IV. They would like to hold off on an IV unless absolutely necessary. 07/16/16 Today is day 4 of antimicrobial treatment of urinary tract infection with multiple pathogens present. Continue with Levaquin daily. Planned. End date of . As Levaquin may cause some changes in mental status and/or confusion. This is the only option for treatment of both Escherichia coli and Enterococ Faecalis. Recheck CBC and BMP today given persistent leukocytosis Continue to monitor blood pressure as she is borderline elevated. If we need to consider initiating an antihypertensive medication need to discuss this further with patient's family. Family has preferred to hold off on IV fluids. Will continue to encourage oral intake. Psychiatric notes reviewed RINKU MORATAYA MD 07/16/161926: Assessment & Plan Assessment 07/16/2016-I reviewed this chart, the patient history, and the METAL STAMPING MACHINE OPERATOR's/PA's documented findings as above. We discussed and formulated the assessment and plan as above with the additions below.-Dr. Morataya The patient is seen this evening after supper. She is alert and in no acute distress. She states she is feeling fine and has no complaints. She is very pleasant this evening. Antelmo chest is clear to auscultation. Cardiovascular reveals a regular rate and rhythm. Abdomen is soft and nontender. Extremities are free of edema. Currently, the patient appears to be stable medically. We'll continue with current treatment plan. MEGHA SPRAGUE APRN July 16, 2016 09:53 RINKU MORATAYA MD July 16, 2016 19:27
[2016-07-16 10:48] LABS: HCT - HEMATOCRIT 43.3 % (36-46); HGB - HEMOGLOBIN 14.1 GM/DL (12-16); MEAN CORPUSCULAR HGB 30.1 UUG (26-34); MEAN CORPUSCULAR HGB CONC(MCHC 32.6 GM/DL (31-37); MEAN CORPUSCULAR VOLUME 92.3 UM3 (80-100); MEAN PLATELET VOLUME 10.4 UM3 (9.4-12.4); RED BLOOD COUNT 4.69 M/MM3 (4.00-5.20); WBC - WHITE BLOOD COUNT 22.5 T/MM3 (4.5-11.0)
--- NOTE | 2016-07-16 10:52 | GENPN ---
[facility] Subjective Date DATE: 07/16/16 TIME: 08:19 Subjective/Severity of Illness Medications Current Medications Medications (Trade) Dose Ordered Sig/Carlie Start Time Stop Time Status Last Admin Dose Admin Ziprasidone (Geodon) 10 mg Q2HR PRN 07/04/16 12:15 07/04/16 19:54 DC 07/04/16 12:11 10 MG Citalopram Hydrobromide (Celexa) 40 mg DAILY 07/05/16 09:00 Future Hold 07/08/16 08:23 40 MG Lorazepam (Ativan) 1 mg BID 07/04/16 21:00 07/08/16 15:58 DC 07/08/16 08:23 1 MG Polyethylene Glycol (Miralax) 17 g DAILY 07/05/16 09:00 Future Hold 07/08/16 08:23 17 G Quetiapine Fumarate (Seroquel) 25 mg BID 07/04/16 21:00 07/05/16 16:12 DC 07/05/16 09:00 25 MG Vitamin B Complex (Total B + C) 1 tab DAILY 07/05/16 09:00 07/15/16 08:43 1 TAB Miscellaneous Medication (May use PRN orders) 1 PRN PRN 07/04/16 16:00 Haloperidol (Haldol) 1 mg Q6H PRN 07/04/16 16:00 07/12/16 19:35 1 MG Lorazepam (Ativan) 1 mg Q6H PRN 07/04/16 16:00 Lorazepam (Ativan) 1 mg Q6H PRN 07/04/16 16:00 Haloperidol Lactate (Haldol 5 Mg/ml Inj) 1 mg Q6H PRN 07/04/16 16:00 Lorazepam (Ativan Intensol) 1 mg Q6H PRN 07/05/16 04:15 07/13/16 16:30 1 MG Quetiapine Fumarate (Seroquel) 50 mg BID 07/05/16 21:00 07/06/16 06:14 DC 07/05/16 21:00 50 MG Senna/Docusate Sodium (Senna Plus) 2 tab BID 07/05/16 21:00 Future Hold 07/08/16 17:44 2 TAB Quetiapine Fumarate (Seroquel) 50 mg BID 07/06/16 09:00 07/06/16 10:39 DC Risperidone (Risperdal) 0.25 mg BID 07/06/16 21:00 07/10/16 18:48 DC 07/10/16 08:27 0.25 MG Acetaminophen (Tylenol Regular Strength) 1-2 tabs Q5H PRN 07/08/16 04:30 07/15/16 16:46 650 MG Lorazepam (Ativan) 0.5 mg BID 07/08/16 21:00 07/09/16 09:11 DC 07/09/16 08:54 0.5 MG Lorazepam (Ativan) 0.5 mg BID 07/08/16 21:00 Future Hold Cephalexin HCl (Keflex) 500 mg Q8HR 07/09/16 10:00 07/13/16 08:34 DC Ceftriaxone Sodium (Rocephin) 1 g DAILY 07/09/16 11:45 07/13/16 08:34 DC 07/12/16 14:41 1 G Lidocaine HCl (Xylocaine 1% 5 ml) 21 mg DAILY 07/10/16 09:00 07/11/16 08:26 DC 07/11/16 08:25 21 MG Risperidone (Risperdal) 0.5 mg 07/11/16 09:00 07/15/16 17:33 0.5 MG Lidocaine HCl (Xylocaine 1%) 21 mg DAILY 07/11/16 09:00 07/12/16 14:42 DC 07/11/16 08:24 21 MG Bisacodyl (Dulcolax) 10 mg DAILY PRN 07/11/16 14:45 07/11/16 14:48 10 MG Lidocaine HCl (Xylocaine 1% 5 ml) 21 mg DAILY 07/13/16 09:00 07/13/16 10:01 DC Haloperidol (Haldol Liquid) 1 mg Q6H PRN 07/12/16 16:00 07/15/16 03:15 1 MG Levofloxacin (LEVAQUIN 250 mg tablet) 250 mg ACB 07/14/16 06:30 07/19/16 08:00 07/15/16 05:14 250 MG Subjective Patient seen and chart reviewed. Case discussed with treatment team. On interview, patient is sitting in her room gazing out of the window; present at bedside. She is awake but ignores my attempts at interview. Nursing staff report patient was irritable and combative this morning - they gave her AM medications and planned to reassess. Discussed patient's progress with , who feels she is significantly improved overall since admission. He does express concern over an abscessed tooth (on antibiotics, he agrees to f/u with dentist as outpatient for possible removal). Nursing staff report that patient was significantly more cooperative, less anxious/tearful and more pleasant yesterday. Continues to have urinary retention requiring straight cath at times. Patient slep well overnight (9 hours). VSS. Patient eats better with encouragement from family. CERTIFIED LEGAL SECRETARY SPECIALIST has discussed IV fluids with family who prefers to push PO fluids. Psychotropic PRNs required in the past 24 hours: None. Time of Service: 10:45 Start Time: 09:20 Stop Time: 09:40 Care >50% of this visit spent in counseling/coordination care. [facility] Exam Vitals Vital Signs Date Time Temp Pulse Resp B/P Pulse Ox O2 Delivery O2 Flow Rate FiO2 07/15/16 22:14 98.1 69 14 176/72 97 Room Air Physical examination performed by the hospitalist. Height (Feet): 5 Height (Inches): 3.00 Mental Status Exam Muscle Strength/Tone: Weak Dressing: Casual Grooming: Fair Attitude: Uncooperative Motor Activity: Retardation Eye Contact: Poor Speech: Slowed Volume: Soft Rhythm: Mumbled, Paucity of Language Sensory: Alert Orientation: Disoriented to time, Disoriented to place, Oriented to person Mood: Irritable, Angry Affect: Labile Rate of Thoughts: Delayed Thought Organization: Confused Associations: Illogical Abstract Reasoning: Impaired, concrete Computation: Poor Computation Thought Content: Other (Unable to fully assess due to patient not cooperating with interview today) Perception/Psychotic: Perception Normal Attention Span/Concentration: Inattentive Language: Naming Impaired Fund of Knowledge: Poor fund of knowledge Memory: Poor-immediate, Poor-recent Suicidal Ideation: None Homicidal Ideation: None Insight: Impaired Judgment: Impaired Impulse Control: Poor Assessment and Plan (1) Major neurocognitive disorder Assessment: with behavioral disturbance 07/06/16: Discontinue Seroquel due to concerns of urinary retention; start Risperdal 0.25mg PO BID alternatively. Discussed this with /DPOA, who is in agreement with plan after discussion of risks/benefits. 07/07/16: Cont current medications 07/08/16: Encourage fluid intake. Obtain UA today. 07/09/16: Patient has been started on Rocephin by hospitalist for UTI. Hold Celexa, Lorazepam, Senna, Glycol. RN please use Haldol for PRN first rather than Lorazepam 07/10/16: Increase Risperidone to 0.5mg BID. Patient will benefit from re- hydration with IVF since she has poor intake 07/11/16 Continue current care 07/12/16 Continue current care 07/13/16 Continue current care 07/14/16: Continue current care - will discuss use of Levofloxacin with medical team. Family wishes to continue encouraging PO intake rather than IV fluids as recommended by medical team. 07/15/16: Improving overall - suspect behavior will continue to improve as course of antibiotics progresses and is completed. 07/16/16: Will replace Ruiz as it is believed straight cath multiple times daily likely contributing to agitation. Sleep improved. Will reassess mood/ cooperation after AM meds. May need to take AM meds prior to attempting cares. (2) CVA (cerebral vascular accident) (3) Chronic lymphocytic leukemia (4) CKD (chronic kidney disease), stage III (5) Leukocytosis (6) Hypertension Cont. current psych. meds RUTHANN ESPINAL MD July 16, 2016 08:19
[2016-07-16 10:58] LABS: ANION GAP 13 MEQ/L (5-15); BUN/CREATININE RATIO 14 RATIO (6-26); CALCIUM 9.9 MG/DL (8.4-10.2); CHLORIDE 105 MEQ/L (98-107); CO2 - CARBON DIOXIDE 26 MEQ/L (22-30); CREATININE 1.3 MG/DL (0.7-1.2); GLOMERULAR FILTRATION RATE 39; GLUCOSE 160 MG/DL (65-110); POTASSIUM 4.2 MEQ/L (3.6-5); SODIUM 144 MEQ/L (134-144)
--- NOTE | 2016-07-16 11:00 | NUR ---
TRAFFIC MONITOR SPECIALIST [facility] met with pt. and her as they sat in pt's room. Pt. is only Ox1. She demonstrates pleasant mood and congruent affect. She smiles slightly when making eye contact. She is only Ox1. Her has rented a hotel room in [place] and plans on staying the rest of the week. Reminisced with pt. and her . They moved occasionally as the held a variety of jobs. 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 She worked in [employer]. She was one of 21 children in her family. Her mother had 8 children when her first . Her father also had 8 children when his first . They and had 5 more children. The patient was the youngest. She only has two living sisters remaining. The patient has three children (one daughter and two sons). Pt. continued to appear relaxed as her talked lovingly about the early years of their marriage.
[2016-07-16] MEDS: ACETAMINOPHEN 325 MG TABLET PO PRN (11:31)
[2016-07-16 11:37] LABS: BAND NEUTROPHILS # 0.2 T/MM3; LYMPHOCYTES # (MANUAL) 10.4 T/MM3 (1-4.8); MONOCYTES # (MANUAL) 0.9 T/MM3 (0-0.8); SMUDGE CELLS 2+; TOTAL CELLS COUNTED 100 %
[2016-07-16 16:06] VITALS: BP 156/75; PULSE 80; RESP 18; TEMP 98; O2SAT 99
--- NOTE | 2016-07-16 17:46 | NUR ---
summary pt woke this am at 0830 for a total sleep of 10.5 hrs. pt combative with staff during am cares. hitting staff on the arm, pinching breast of one staff member. pt cussing and yelling out " help your killing me" once cares were done pt calmed. pt ate 50% of breakfast only bites for lunch and 20% for supper. pt arrived on unit at 0730 and left at 1730. gets tearful at times due to pt's labile mood. pt was compliant with medication this shift with husbands help. pt has voided large amounts x2 this shift.
[2016-07-16 19:38] VITALS: BP 143/87; PULSE 73; RESP 16; TEMP 97.4; O2SAT 96
--- NOTE | 2016-07-17 00:59 | NUR ---
Status Pt was sitting in DR watching tv. Pt with bright affect, smiling. Pt visiting with staff and other pts. She is a/o to self, up with assist x 2. Pt was cooperative with all cares and assessments. Pt encouraged to drink fluids and given small cup of water. Pt cooperative with bed time cares. She did try to use the restroom before going to bed but only had a small incontinent void. Pt in bed at 2130 and asleep by 2200 and is currently asleep. Bed is in low position, SR up x 2, call light in reach but pt does not use and alarm is on and functioning. Pt has had no behaviors and no PRNs given. Will continue to monitor.
--- NOTE | 2016-07-17 06:06 | NUR ---
Chart Check 24 hour chart check completed
--- NOTE | 2016-07-17 06:06 | NUR ---
Summary Pt slept from 2200 to present time awake throughout night a total of 1HR. Pt has been offered toileting but states she does not have to go to the BR but will go later. Pt checked often and continues to be dry. Pt has not had any behaviors this shift, no PRNs required and she has been cooperative with cares at times needing verbal cues or touch. Pt has been free from injury or falls. Bed is in low position, SR up x 2, call light in reach but pt does not use and bed alarm is on and functioning. Will continue to monitor.
[2016-07-17] MEDS: VITAMIN B COMP + C TABLET PO SCH (07:58)
[2016-07-17] MEDS: RISPERIDONE 0.5 MG TABLET PO SCH ×2 (07:58→17:16)
[2016-07-17] MEDS: LEVOFLOXACIN 250 MG TABLET PO SCH (07:59)
[2016-07-17 08:02] VITALS: BP 143/75; PULSE 85; RESP 16; TEMP 97
[2016-07-17] MEDS: ACETAMINOPHEN 325 MG TABLET PO PRN (08:33)
[2016-07-17] MEDS: POLYETHYL.GLYCOL 3350 PACKET 17gm PO SCH (09:15)
--- NOTE | 2016-07-17 10:36 | NUR ---
YARN DRY ROOM WORKER--AM GROUP Pt. was present and actively engaged in psychoeducational group facilitated by [facility]. Her was also present and helped her participate in the group. Talked about importance of gratitude and how focusing on positives in their lives helps improve mood and attitude. Pt. was Ox1, calm, with pleasant mood. Played watAgameing game to help stimulate neurocognitive functioning and social interactions. Pt. was able to correctly answer a few of the questions correctly when given a choice of two answers. Pt. remained calm and engaged with pleasant mood for the entire session.
[2016-07-17] MEDS ORDERED: MAG-AL + SIM XS 30 ML UDC PO PRN (12:15)
--- NOTE | 2016-07-17 14:12 | GENPN ---
[facility] Subjective Date DATE: 07/17/16 TIME: 10:33 Subjective/Severity of Illness Medications Current Medications Medications (Trade) Dose Ordered Sig/Carlie Start Time Stop Time Status Last Admin Dose Admin Ziprasidone (Geodon) 10 mg Q2HR PRN 07/04/16 12:15 07/04/16 19:54 DC 07/04/16 12:11 10 MG Citalopram Hydrobromide (Celexa) 40 mg DAILY 07/05/16 09:00 Future Hold 07/08/16 08:23 40 MG Lorazepam (Ativan) 1 mg BID 07/04/16 21:00 07/08/16 15:58 DC 07/08/16 08:23 1 MG Polyethylene Glycol (Miralax) 17 g DAILY 07/05/16 09:00 Future hold 07/17/16 09:15 17 G Quetiapine Fumarate (Seroquel) 25 mg BID 07/04/16 21:00 07/05/16 16:12 DC 07/05/16 09:00 25 MG Vitamin B Complex (Total B + C) 1 tab DAILY 07/05/16 09:00 07/17/16 07:58 1 TAB Miscellaneous Medication (May use PRN orders) 1 PRN PRN 07/04/16 16:00 Haloperidol (Haldol) 1 mg Q6H PRN 07/04/16 16:00 07/12/16 19:35 1 MG Lorazepam (Ativan) 1 mg Q6H PRN 07/04/16 16:00 Lorazepam (Ativan) 1 mg Q6H PRN 07/04/16 16:00 Haloperidol Lactate (Haldol 5 Mg/ml Inj) 1 mg Q6H PRN 07/04/16 16:00 Lorazepam (Ativan Intensol) 1 mg Q6H PRN 07/05/16 04:15 07/13/16 16:30 1 MG Quetiapine Fumarate (Seroquel) 50 mg BID 07/05/16 21:00 07/06/16 06:14 DC 07/05/16 21:00 50 MG Senna/Docusate Sodium (Senna Plus) 2 tab BID 07/05/16 21:00 Future Hold 07/08/16 17:44 2 TAB Quetiapine Fumarate (Seroquel) 50 mg BID 07/06/16 09:00 07/06/16 10:39 DC Risperidone (Risperdal) 0.25 mg BID 07/06/16 21:00 07/10/16 18:48 DC 07/10/16 08:27 0.25 MG Acetaminophen (Tylenol Regular Strength) 1-2 tabs Q5H PRN 07/08/16 04:30 07/17/16 08:33 650 MG Lorazepam (Ativan) 0.5 mg BID 07/08/16 21:00 07/09/16 09:11 DC 07/09/16 08:54 0.5 MG Lorazepam (Ativan) 0.5 mg BID 07/08/16 21:00 Future Hold Cephalexin HCl (Keflex) 500 mg Q8HR 07/09/16 10:00 07/13/16 08:34 DC Ceftriaxone Sodium (Rocephin) 1 g DAILY 07/09/16 11:45 07/13/16 08:34 DC 07/12/16 14:41 1 G Lidocaine HCl (Xylocaine 1% 5 ml) 21 mg DAILY 07/10/16 09:00 07/11/16 08:26 DC 07/11/16 08:25 21 MG Risperidone (Risperdal) 0.5 mg 07/11/16 09:00 07/17/16 07:58 0.5 MG Lidocaine HCl (Xylocaine 1%) 21 mg DAILY 07/11/16 09:00 07/12/16 14:42 DC 07/11/16 08:24 21 MG Bisacodyl (Dulcolax) 10 mg DAILY PRN 07/11/16 14:45 07/11/16 14:48 10 MG Lidocaine HCl (Xylocaine 1% 5 ml) 21 mg DAILY 07/13/16 09:00 07/13/16 10:01 DC Haloperidol (Haldol Liquid) 1 mg Q6H PRN 07/12/16 16:00 07/15/16 03:15 1 MG Levofloxacin (LEVAQUIN 250 mg tablet) 250 mg ACB 07/14/16 06:30 07/19/16 08:00 07/17/16 07:59 250 MG Subjective Patient seen and chart reviewed. Case discussed with treatment team. On interview, patient is in her room and is at bedside. She is pleasant , smiles and says her day is going well. She has eaten breakfast and took her medications without difficulty today. Discussed patient's progress with , who feels she is significantly improved overall since admission. Patient was combative/agitated yesterday AM but more cooperative later in the day. Patient slep well overnight. VSS. Patient eats better with encouragement from family. 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 Psychotropic PRNs required in the past 24 hours: None. Time of Service: 10:45 Start Time: 10:40 Stop Time: 11:00 Care >50% of this visit spent in counseling/coordination care. [facility] Exam Vitals Vital Signs Date Time Temp Pulse Resp B/P Pulse Ox O2 Delivery O2 Flow Rate FiO2 07/17/16 08:02 97.0 85 16 143/75 Room Air 07/16/16 19:38 96 Physical examination performed by the hospitalist. Height (Feet): 5 Height (Inches): 3.00 Mental Status Exam Muscle Strength/Tone: Weak Dressing: Casual Grooming: Good Attitude: Cooperative Motor Activity: Retardation Eye Contact: Good Speech: Slowed Volume: Soft Rhythm: Paucity of Language Sensory: Alert Orientation: Disoriented to situation, Oriented to person Mood: Euthymic Affect: Congruent Rate of Thoughts: Delayed Thought Organization: Confused Associations: Intact Abstract Reasoning: Poor abstract reasoning Thought Content: Normal Perception/Psychotic: Perception Normal Attention Span/Concentration: Short Span Language: Naming Impaired Fund of Knowledge: Poor fund of knowledge Memory: Poor-immediate, Poor-recent Suicidal Ideation: Denies Homicidal Ideation: Denies Insight: Limited Judgment: Limited Impulse Control: Fair Assessment and Plan (1) Major neurocognitive disorder Assessment: with behavioral disturbance 07/06/16: Discontinue Seroquel due to concerns of urinary retention; start Risperdal 0.25mg PO BID alternatively. Discussed this with /DPOA, who is in agreement with plan after discussion of risks/benefits. 07/07/16: Cont current medications 07/08/16: Encourage fluid intake. Obtain UA today. 07/09/16: Patient has been started on Rocephin by hospitalist for UTI. Hold Celexa, Lorazepam, Senna, Glycol. RN please use Haldol for PRN first rather than Lorazepam 07/10/16: Increase Risperidone to 0.5mg BID. Patient will benefit from re- hydration with IVF since she has poor intake 07/11/16 Continue current care 07/12/16 Continue current care 07/13/16 Continue current care 07/14/16: Continue current care - will discuss use of Levofloxacin with medical team. Family wishes to continue encouraging PO intake rather than IV fluids as recommended by medical team. 07/15/16: Improving overall - suspect behavior will continue to improve as course of antibiotics progresses and is completed. 07/16/16: Will replace Ruiz as it is believed straight cath multiple times daily likely contributing to agitation. Sleep improved. Will reassess mood/ cooperation after AM meds. May need to take AM meds prior to attempting cares. 07/17/16: Patient doing well today; continue current care and monitor for any continued lability or combativeness today. (2) CVA (cerebral vascular accident) (3) Chronic lymphocytic leukemia (4) CKD (chronic kidney disease), stage III (5) Leukocytosis (6) Hypertension Cont. current psych. meds RUTHANN ESPINAL MD July 17, 2016 10:33
--- NOTE | 2016-07-17 15:36 | NUR ---
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 was sitting in her room in recliner with her present and her doll sitting on her lap. She appeared calm with pleasant mood and has enjoyed looking out her window. Pt. is only Ox1. She responds appropriately to simple questions asked of her. She is not able to engage in an in depth conversation due to severity of her dementia. When asked why kind of music pt. enjoyed listening to when they were dating, said she was from [place] and they often listened to polkas at their weddings. This SW played polka from ipad and pt's eyes lit up and she began to sing along to the tune. Pt. also enjoyed listening to Garcia Osorio and Kevin Webber. Pt. remained calm and engaged in the activity for entire session.
[2016-07-17 16:47] VITALS: BP 152/80; PULSE 80; RESP 16; TEMP 97.9; O2SAT 95
--- NOTE | 2016-07-17 17:55 | NUR ---
summary pt woke this am at 0630. total sleep time of approx. 6.5 hrs. pt here all shift. he is able to get pt to the bathroom, pt has urinated x2 this shift. pt has poor appetite, between and staff trying to get pt to eat, only ate about 75% between all meals. pt is labile, smiling and pleasant one minute then very hateful and cussing the next. pt only had 2 episodes of being combative. that was when staff was assisting pt to the bathroom. pt was compliant with medication. did take several attempts with the 1730 med.
[2016-07-17 20:01] VITALS: PULSE 66; PULSE 98
[2016-07-17 20:08] VITALS: BP 167/69; PULSE 66; RESP 18; TEMP 97.3; O2SAT 98
--- NOTE | 2016-07-17 21:46 | NUR ---
Status Pt lying in bed at start of shift, had been visiting and just left. Pt is tearful saying "help me, I don't know what to do anymore". When staff asked what was wrong she stated she didn't know what to do anymore. Staff tried to distract pt with other conversation, pt would compliment staff. She was cooperative with VS and assessment. Staff tried to get pt to come out to the DR to visit for awhile but pt started to get upset stating she didn't want to go right now but maybe later. Pt is a/o to self, up with assist x 2. Bed is locked, in low position, SR up x 2, call light in reach but pt does not use, bed alarm is on and functioning. Will continue to monitor.
--- NOTE | 2016-07-17 23:18 | NUR ---
Chart Check 24 hour chart check completed
--- NOTE | 2016-07-18 05:38 | NUR ---
Summary/Sleep Pt has slept through the night. She was in bed at start of shift and not wanting to get OOB. Pt fell asleep at 2044 and is currently sleeping. Pt remained dry through the night and currently dry. Bed is in low position, locked, SR up x 2, call light in reach but pt does not use and bed alarm is on and functioning. Will continue to monitor. Pt had no PRNs and no behaviors.
[2016-07-18] MEDS: LEVOFLOXACIN 250 MG TABLET PO SCH (07:57)
[2016-07-18] MEDS: RISPERIDONE 0.5 MG TABLET PO SCH ×4 (07:57→19:31)
[2016-07-18] MEDS: VITAMIN B COMP + C TABLET PO SCH (07:57)
[2016-07-18] MEDS: POLYETHYL.GLYCOL 3350 PACKET 17gm PO SCH (07:58)
[2016-07-18 08:00] VITALS: PULSE 89; RESP 16
[2016-07-18 08:03] VITALS: BP 138/65; PULSE 73; RESP 15; TEMP 98; O2SAT 95
[2016-07-18 08:06] VITALS: BP 154/77; PULSE 89; RESP 16; TEMP 97.3; O2SAT 97
[2016-07-18] MEDS: ACETAMINOPHEN 325 MG TABLET PO PRN ×2 (08:12→20:59)
[2016-07-18] MEDS ORDERED: MILK OF MAGNESIA 30 ML SUSP PO PRN (08:45)
--- NOTE | 2016-07-18 10:07 | NUR ---
BACTERIOLOGIST PHARMACEUTICAL -- 1:1 CONTACT SW spoke with pt and this morning. Pt in a very good mood while sitting in the day room. SW provided 1:1 interaction with music therapy. Pt enjoyed singing to old country music. Pt would either hum or sing appropriately to the songs played.
--- NOTE | 2016-07-18 14:44 | NUR ---
STATUS patient refused to take morning medications at first several attempt were made, then after a while she change her mood and she took all morning medications, patient was angry at and would refuse to eat, she only had a couple of bites for breakfast, at noon patient was emotional, she was crying because she said her would not eat the sandwich that was brought for her, she thought she made that sandwich for him. After a while she was better and smiling again, she was doing a puzzle with her and got her nails done by staff and she was in a better mood.
[2016-07-18 16:00] VITALS: BP 143/74; PULSE 82; RESP 18; TEMP 97.8
--- NOTE | 2016-07-18 17:42 | NUR ---
SHIFT SUMMARY Patient is AO x 1, speech is clear, this morning she refused to take her medications but eventually agree to take them after several attempts were made. Patient patient was in a happy mood this morning, but then her mood change at lunch time, she was crying and angry at her because the lunch that was sent for her, she thought she made it for her and he would not eat it. After a while she was in a better mood, she allow me to do her nails, she tried to help her put a puzzle together, she allows to help with cares at times other times she refuses, she continues to refuse to let staff help with cares. Patient was complaining of pain on her back this morning, Tylenol 650mg PO PRN was given with morning medications. This evening patient took a nap and when she woke up for supper she was not happy, she was mad at staff and , she refused to eat dinner and refuses to take her 1700 medication, will continue to try to administer medication. Patient denies needs or concerns at the moment.
[2016-07-18 19:19] VITALS: BP 147/82; PULSE 70; RESP 16; TEMP 97.4; O2SAT 98
--- NOTE | 2016-07-18 19:58 | NUR ---
Medication Offered magic cup; pt. took one bite and said no more. Wrinkled up face at the taste. Offered might shake and 1700 Risperdal; pt. refused the shake and would not try it. Pt. spit out med. No agitation noted. Pt. calmly refused to take pill and spit it out.
[2016-07-18] MEDS: HALOPERIDOL 1 MG/0.5 ML ORAL LIQUID PO PRN ×2 (21:14→21:15)
--- NOTE | 2016-07-18 21:41 | NUR ---
HS Jovan/Meds RN played piano at 2029 and pt. smiled and talked happily of the music. Pt. sat in the group room to watch RN play piano. Pt. talked of being tired and walked with FWW accompanied by RN to her room at 2044. Offered warm soapy wash rags for bed bath and pt. quickly became agitated. Pt. refused to accept bath and refused offer for toilet. Swung and hit RN. Charge nurse approached pt. and pt. stated her head hurt. Pt. took one Tylenol whole and then refused to take a second one. Offered Tylenol in chocolate pudding and offered Haldol liquid with water; pt. refused both. Pt. refuses to go to bed; agitated with cares. Pt. sitting up in chair in her room with chair alarm at this time.
--- NOTE | 2016-07-18 22:36 | GENPN ---
[facility] Subjective Date DATE: 07/18/16 TIME: 15:03 Subjective/Severity of Illness Medications Current Medications Medications (Trade) Dose Ordered Sig/Carlie Start Time Stop Time Status Last Admin Dose Admin Ziprasidone (Geodon) 10 mg Q2HR PRN 07/04/16 12:15 07/04/16 19:54 DC 07/04/16 12:11 10 MG Citalopram Hydrobromide (Celexa) 40 mg DAILY 07/05/16 09:00 Future Hold 07/08/16 08:23 40 MG Lorazepam (Ativan) 1 mg BID 07/04/16 21:00 07/08/16 15:58 DC 07/08/16 08:23 1 MG Polyethylene Glycol (Miralax) 17 g DAILY 07/05/16 09:00 Future hold 07/18/16 07:58 17 G Quetiapine Fumarate (Seroquel) 25 mg BID 07/04/16 21:00 07/05/16 16:12 DC 07/05/16 09:00 25 MG Vitamin B Complex (Total B + C) 1 tab DAILY 07/05/16 09:00 07/18/16 07:57 1 TAB Miscellaneous Medication (May use PRN orders) 1 PRN PRN 07/04/16 16:00 Haloperidol (Haldol) 1 mg Q6H PRN 07/04/16 16:00 07/12/16 19:35 1 MG Lorazepam (Ativan) 1 mg Q6H PRN 07/04/16 16:00 Lorazepam (Ativan) 1 mg Q6H PRN 07/04/16 16:00 Haloperidol Lactate (Haldol 5 Mg/ml Inj) 1 mg Q6H PRN 07/04/16 16:00 Lorazepam (Ativan Intensol) 1 mg Q6H PRN 07/05/16 04:15 07/13/16 16:30 1 MG Quetiapine Fumarate (Seroquel) 50 mg BID 07/05/16 21:00 07/06/16 06:14 DC 07/05/16 21:00 50 MG Senna/Docusate Sodium (Senna Plus) 2 tab BID 07/05/16 21:00 Future Hold 07/08/16 17:44 2 TAB Quetiapine Fumarate (Seroquel) 50 mg BID 07/06/16 09:00 07/06/16 10:39 DC Risperidone (Risperdal) 0.25 mg BID 07/06/16 21:00 07/10/16 18:48 DC 07/10/16 08:27 0.25 MG Acetaminophen (Tylenol Regular Strength) 1-2 tabs Q5H PRN 07/08/16 04:30 07/18/16 08:12 650 MG Lorazepam (Ativan) 0.5 mg BID 07/08/16 21:00 07/09/16 09:11 DC 07/09/16 08:54 0.5 MG Lorazepam (Ativan) 0.5 mg BID 07/08/16 21:00 Future Hold Cephalexin HCl (Keflex) 500 mg Q8HR 07/09/16 10:00 07/13/16 08:34 DC Ceftriaxone Sodium (Rocephin) 1 g DAILY 07/09/16 11:45 07/13/16 08:34 DC 07/12/16 14:41 1 G Lidocaine HCl (Xylocaine 1% 5 ml) 21 mg DAILY 07/10/16 09:00 07/11/16 08:26 DC 07/11/16 08:25 21 MG Risperidone (Risperdal) 0.5 mg 07/11/16 09:00 07/18/16 07:57 0.5 MG Lidocaine HCl (Xylocaine 1%) 21 mg DAILY 07/11/16 09:00 07/12/16 14:42 DC 07/11/16 08:24 21 MG Bisacodyl (Dulcolax) 10 mg DAILY PRN 07/11/16 14:45 07/11/16 14:48 10 MG Lidocaine HCl (Xylocaine 1% 5 ml) 21 mg DAILY 07/13/16 09:00 07/13/16 10:01 DC Haloperidol (Haldol Liquid) 1 mg Q6H PRN 07/12/16 16:00 07/15/16 03:15 1 MG Levofloxacin (LEVAQUIN 250 mg tablet) 250 mg ACB 07/14/16 06:30 07/19/16 08:00 07/18/16 07:57 250 MG Al Hydroxide/Mg Hydroxide (Maalox Plus Xs) 30 ml Q3-4H PRN 07/17/16 12:15 07/17/16 12:20 30 ML Magnesium Hydroxide (Mom) 30 ml DAILY PRN 07/18/16 08:45 07/18/16 08:37 30 ML Subjective Patient seen and chart reviewed. is at bedside and states she took a 2 hour nap today, but patient will not respond to my attempts at interview though she is awake and sitting at a table. Per staff, patient has had some mild mood lability (mild anger, tearfulness that is episodic) but is pleasantly confused at other times. She continues to have some mild combativeness with cares but has improved quite a bit overall since admission. The big concern currently is her very limited PO intake. Discussed again with , he still does not feel that she will tolerate IV fluids and will pull them out. Patient has recently been sleeping well overnight. VSS. Psychotropic PRNs required in the past 24 hours: None. Time of Service: 10:45 Start Time: 17:50 Stop Time: 18:10 Care >50% of this visit spent in counseling/coordination care. [facility] Exam Vitals Vital Signs Date Time Temp Pulse Resp B/P Pulse Ox O2 Delivery O2 Flow Rate FiO2 07/18/16 08:06 97.3 89 16 154/77 97 Room Air Physical examination performed by the hospitalist. Height (Feet): 5 Height (Inches): 3.00 Mental Status Exam Muscle Strength/Tone: Weak Dressing: Casual Grooming: Fair Attitude: Uncooperative Motor Activity: Retardation Eye Contact: Poor Speech: Slowed Volume: Soft Rhythm: Mumbled, Paucity of Language Sensory: Alert Orientation: Disoriented to place, Disoriented to situation, Oriented to person Mood: Neutral Affect: Labile Rate of Thoughts: Delayed Thought Organization: Confused Associations: Illogical Abstract Reasoning: Impaired, concrete Thought Content: Other (Poverty of thought) Perception/Psychotic: Perception Normal Attention Span/Concentration: Inattentive Language: Naming Impaired Fund of Knowledge: Poor fund of knowledge Memory: Poor-immediate, Poor-recent, Poor-remote Suicidal Ideation: None Homicidal Ideation: None Insight: Impaired Judgment: Impaired Impulse Control: Poor (though improved from previous) Assessment and Plan (1) Major neurocognitive disorder Assessment: with behavioral disturbance 07/06/16: Discontinue Seroquel due to concerns of urinary retention; start Risperdal 0.25mg PO BID alternatively. Discussed this with /DPOA, who is in agreement with plan after discussion of risks/benefits. 07/07/16: Cont current medications 07/08/16: Encourage fluid intake. Obtain UA today. 07/09/16: Patient has been started on Rocephin by hospitalist for UTI. Hold Celexa, Lorazepam, Senna, Glycol. RN please use Haldol for PRN first rather than Lorazepam 07/10/16: Increase Risperidone to 0.5mg BID. Patient will benefit from re- hydration with IVF since she has poor intake 07/11/16 Continue current care 07/12/16 Continue current care 07/13/16 Continue current care 07/14/16: Continue current care - will discuss use of Levofloxacin with medical team. Family wishes to continue encouraging PO intake rather than IV fluids as recommended by medical team. 07/15/16: Improving overall - suspect behavior will continue to improve as course of antibiotics progresses and is completed. 07/16/16: Will replace Ruiz as it is believed straight cath multiple times daily likely contributing to agitation. Sleep improved. Will reassess mood/ cooperation after AM meds. May need to take AM meds prior to attempting cares. 07/17/16: Patient doing well today; continue current care and monitor for any continued lability or combativeness today. 07/18/16: Monitor behavior as patient finishes course of Levaquin. Suggest further reassessment of goals of care along with ; he again states today that he does not feel patient will tolerate IV fluids though poor PO intake is concerning. Continue current medications for the time being. (2) Delirium due to general medical condition (3) UTI (urinary tract infection) (4) CVA (cerebral vascular accident) (5) Chronic lymphocytic leukemia (6) CKD (chronic kidney disease), stage III (7) Hypertension (8) Leukocytosis (9) Urinary retention Cont. current psych. meds RUTHANN ESPINAL MD July 18, 2016 15:03
[2016-07-18 23:43] VITALS: PULSE 72
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
[2016-07-19] MEDS ORDERED: MIRTAZAPINE 15 MG SOLU-TAB PO ONE (06:15)
[2016-07-19] MEDS: LEVOFLOXACIN 250 MG TABLET PO SCH (06:30)
--- NOTE | 2016-07-19 06:33 | NUR ---
Summary arrived on shift at 2300, patient was guarded with assessment. Patient had taken a 1hr nap prior to arriving on shift. patient had not voided since 11am. Bladder scanned patient, showed 152ml. Continued to monitor patient, fell asleep in recliner, did not want to move to bed. Chair alarm is in place. Patient slept from 2345 to currently. Patient still has not voided, patient was bladder scanned again showed, 257ml. Dr hicks notified of patient not taking fluids and poor appetite. Patient's family was not in support of receiving IV fluids. SBAR report handed off to following RN.
[2016-07-19 08:00] VITALS: BP 144/82; PULSE 76; RESP 16; TEMP 97.4
[2016-07-19 08:01] LABS: BASOPHILS % (AUTO) 0.3 % (0-2); EOSINOPHILS # (AUTO) 0.1 T/MM3 (0-0.5); EOSINOPHILS % (AUTO) 0.6 % (0-4); HCT - HEMATOCRIT 38.7 % (36-46); HGB - HEMOGLOBIN 12.7 GM/DL (12-16); IMMATURE GRANULOCYTE # (AUTO) 0.02 T/MM3 (0.00-0.03); IMMATURE GRANULOCYTE % (AUTO) 0.1 % (0.0-0.5); MEAN CORPUSCULAR HGB CONC(MCHC 32.8 GM/DL (31-37); MEAN CORPUSCULAR VOLUME 91.5 UM3 (80-100); MEAN PLATELET VOLUME 10.2 UM3 (9.4-12.4); MONOCYTES # (AUTO) 0.5 T/MM3 (0-0.8); MONOCYTES % (AUTO) 3.2 % (0-9.0); NEUTROPHILS #(AUTO)-ABSOLUTE 3.7 T/MM3 (1.8-7.7); NEUTROPHILS % (AUTO) 25.8 % (33-66); RED BLOOD COUNT 4.23 M/MM3 (4.00-5.20); WBC - WHITE BLOOD COUNT 14.3 T/MM3 (4.5-11.0)
[2016-07-19 08:10] LABS: ANION GAP 9 MEQ/L (5-15); BUN/CREATININE RATIO 16 RATIO (6-26); CALCIUM 9.8 MG/DL (8.4-10.2); CHLORIDE 106 MEQ/L (98-107); CO2 - CARBON DIOXIDE 30 MEQ/L (22-30); CREATININE 1.3 MG/DL (0.7-1.2); GLOMERULAR FILTRATION RATE 39; GLUCOSE 103 MG/DL (65-110); POTASSIUM 5.1 MEQ/L (3.6-5); SODIUM 145 MEQ/L (134-144)
--- NOTE | 2016-07-19 08:59 | PNPDOC ---
Subjective Date DATE: 07/19/16 TIME: 08:25 Subjective Marine was resting in her recliner in her room. She responded to me by pushing away my hands when I tried to examine her. She would not let me open her mouth to look at her teeth, since her at dated that she has at bad tooth that needs repair. Her states that he couldn't get her to eat or drink hardly anything at all yesterday, and he was here for about 12 hours. She hasn' t voided since about 11 AM yesterday. Bladder scan this morning revealed 275 mL' s. Today was her last day of antibiotics for her dual organism UTI. I discussed prognosis with her , and he knows that her quality of life is not good at this point, and he does not foresee her getting any better. He does not feel like she is suffering, however. Objective Vital Signs Vital signs Vital Signs Date Time Temp Pulse Resp B/P Pulse Ox O2 Delivery O2 Flow Rate FiO2 07/18/16 23:43 72 07/18/16 19:19 97.4 16 147/82 98 Room Air Height (Feet): 5 Height (Inches): 3.00 Weight (Kilograms): 59.900 General General Appearance: No Acute Distress Eyes (Brief) Comments She kept her eyes closed ENMT (Brief) Comments Refused to open mouth Respiratory (Brief) Respiratory: FOUND: clear all [place], equal bilaterally Cardiovascular (Brief) Cardiac: FOUND: regular rate, regular rhythm Abdomen (Brief) Abdominal: FOUND: BS normo active x4 (hypoactive), soft, NOT FOUND: tender Extremities (Brief) Extremity : Extremity Finding: NOT FOUND: edema Musculoskeletal (Brief) Musculoskeletal: NOT FOUND: deformity Integumentary (Brief) Integumentary: FOUND: dry, warm Laboratory Laboratory Laboratory Tests 07/19/16 07:51 Laboratory Tests 07/19/16 07:51 Sepsis Diagnostic Criteria Sepsis Confirmed/Suspected Infection: No Assessment & Plan Problems: (1) UTI (urinary tract infection) Status: Acute Assessment & Plan: MICROBIOLOGY URINE CULTURE. Final 07/13/16-740 Organism 1 ESCHERICHIA COLI COLONY COUNT >100,000 CFU/ml Organism 2 ENTEROCOC FAECALIS - (GROUP D) COLONY COUNT >100,000 CFU/ml E COLI E FAECA(D) INTERP DORA INTERP DROA ------ --------- ------ --------- AMOX/CLAV ACID S <=2 AMPICILLIN S 4 CEFAZOLIN S <=4 CEFEPIME S <=1 CEFTAZIDIME S <=1 CEFTRIAXONE S <=1 CIPROFLOXACIN S <=0.25 S 1 ERTAPENEM S <=0.5 GENTAMICIN S <=1 LEVOFLOXACIN S <=0.12 S 1 LINEZOLID S 1 NITROFURANTOIN S <=16 S <=16 TETRACYCLINE S <=1 TOBRAMYCIN S <=1 TRIMETH/SULFA S <=20 PIPERACILL/TAZO S <=4 VANCOMYCIN S 1 (2) Leukocytosis Status: Acute (3) Urinary retention Status: Resolved Assessment & Plan: Salas inserted on 07/06/16 Discontinued on 07/13/16 (4) Aggressive behavior Status: Acute (5) Dementia Status: Chronic (6) Irritable bowel syndrome Status: Chronic (7) Chronic lymphocytic leukemia Status: Chronic (8) Hypertension Status: Chronic (9) Sleep apnea Status: Chronic (10) CVA (cerebral vascular accident) Status: Chronic (11) CKD (chronic kidney disease), stage III Status: Chronic (12) Anxiety Status: Acute Assessment Plan/Intensity of Service Labs are repeated this morning. White count improved to 14.3. Sodium increased to 145, and she is hyperkalemic with a potassium level of 5.1. Creatinine increased slightly to 1.3. She remains oliguric, and bladder scan showed 275 mL. Her last void was yesterday around 11 AM. Her oral intake has been very poor. Today was her last day of Levaquin for dual organism UTI. After labs resulted I discussed results with Mr. Tellez. Palliative care discussion ensued. He realizes that she will not get better and that by giving any IVF it will only delay the inevitable. She no longer has the ability to feed herself, take in adequate calories, perform any ADLs, and communicate effectively. She is incontinent of bowel and bladder. Her weight declined 3 kg after the 1st week - will recheck again today. He is hesitant to sign up for hospice b/c she doesn't like other people taking care of her, which is why he spent 12 hours every day at her senior care. He knows that she has very poor quality of life but he doesn't think she's suffering. He will discuss end-of- life care with his daughter today. I also relayed these issues to the [facility]ol[facility] SW. Time spent in palliative care discussion: 40 min. Code Status Do Not Resuscitate Hospital Course Summary Disclaimer The hospital course summary below is not to be considered part of the above Progress Note. Hospital Course Summary 07/04/16 Agree with admission to [facility]. Complete workup per Dr. Workman. Leukocytosis without evidence of SIRS or active infection. Would not treat at this time. In addition, she also has a history of CLL, which can skew results. There was no documentation of active treatment in the chart. Follow-up CBC on Thursday. History of chronic kidney disease, baseline creatinine unknown. Will reassess on Thursday. History of hypertension, but she is not on any antihypertensives. Will monitor. Provide a safe and supportive environment. 07/05/16- Patient continues agitated, inconsolable. Significant urinary retention last night. Will schedule bladder scan; straight cath PRN. If ongoing retention, place Salas. Assess KUB to make sure she does not have fecal retention that is causing her discomfort. Hx of CLL- likely cause of leukocytosis. Afebrile. Recent tx with Augmentin for URI. Recheck CBC in AM. Schedule tylenol for pain. BP remains elevated- continue to monitor at this time. May need to add medication if persists. 07/07/16 Salas catheter was inserted on 07/06/16 for retention. Urinalysis on 07/04/16 was unremarkable. Leukocytosis has improved, down to 13.3. KUB showed a moderate stool burden. She large soft-liquid bowel movements on Psychiatric progress notes reviewed: Discontinued Seroquel on 07/06/16 due to urinary retention; started Risperdal 0.25mg PO BID. 07/09/16 Salas catheter was inserted on 07/06/16 for retention. Urinalysis on today was positive for UTI. Initially started on Keflex however nursing staff reports she is refusing PO meds. Changed treatment of Rocephin 1 gm IM daily. Will re-evaluate over the next several days and will transition to PO Abx once behaviors have improved. Have nursing staff change out salas cath today. Will work on bladder re- training over the next few days. Continued leukocytosis. Will recheck CBC and BMP tomorrow morning. 07/10/16 Urine culture pending - cont. IM Rocephin since she was refusing Keflex. Continue bladder re-training. Leukocytosis is improving. Labs are stable despite not taking in much oral. Nurses don't think she will do well with an IV. SW recommends talking with her before ordering an IV. Will ask nurses to push oral fluids and will repeat BMP in am. She is hemodynamically stable. Psychiatric progress note reviewed: Hold Celexa, Lorazepam, Senna, Glycol. 07/11/16 Reviewed urine culture which is positive for Escherichia coli. It is pansensitive. Will continue on IM Rocephin as patient was refusing oral medications. Today is day 3 of treatment. Will check CBC and BMP tomorrow morning to follow blood counts, renal function and electrolytes. If patient continues to have hypernatremia, may consider giving a bolus of IV fluids for hydration. Continue to monitor blood pressure as it is mildly elevated, likely secondary to her behaviors. Dulcolax suppository when necessary for bowel motivation 07/13/16 Urine culture was finalized this morning, showing dual organism UTI with both Escherichia coli and enterococcus. The Escherichia coli was sensitive to Rocephin, but not enterococcus. This might explain her ongoing leukocytosis. Will start Levaquin 250 mg daily 7 days, which will cover both Escherichia coli and enterococcus. Discontinue Rocephin. If she is unable to take this orally, may need to start IVF (though nurses doubt pt would tolerate this). Chemistry panel shows slight elevation in creatinine, we'll need to monitor closely while on Levaquin. Psychiatric progress notes reviewed. 07/14/16 Salas catheter was discontinued yesterday, and patient has been able to void with minimal residuals so far. Continue Levaquin for dual organism UTI, day #2. Discussed dosing with pharmacy , and they agreed. We'll clarify wishes for IV fluids with patient's family. I do not feel that giving IV fluids would provide any long-term benefits. Later in the morning I met with Marine's and daughter. I updated them on her UTI and new abx as of yesterday, as well as the risks of Levaquin. We discussed the possibility of needing IVF, and both of them agreed that Marine would not do well with an IV. They would like to hold off on an IV unless absolutely necessary. 07/16/16 Today is day 4 of antimicrobial treatment of urinary tract infection with multiple pathogens present. Continue with Levaquin daily. Planned. End date of . As Levaquin may cause some changes in mental status and/or confusion. This is the only option for treatment of both Escherichia coli and Enterococ Faecalis. Recheck CBC and BMP today given persistent leukocytosis Continue to monitor blood pressure as she is borderline elevated. If we need to consider initiating an antihypertensive medication need to discuss this further with patient's family. Family has preferred to hold off on IV fluids. Will continue to encourage oral intake. Psychiatric notes reviewed 07/19/16 Labs are repeated this morning. White count improved to 14.3. Sodium increased to 145, and she is hyperkalemic with a potassium level of 5.1. Creatinine increased slightly to 1.3. She remains oliguric, and bladder scan showed 275 mL. Her last void was yesterday around 11 AM. Her oral intake has been very poor. Today was her last day of Levaquin for dual organism UTI. After labs resulted I discussed results with Mr. Tellez. Palliative care discussion ensued. He realizes that she will not get better and that by giving any IVF it will only delay the inevitable. She no longer has the ability to feed herself, take in adequate calories, perform any ADLs, and communicate effectively. She is incontinent of bowel and bladder. Her weight declined 3 kg after the 1st week - will recheck again today. He is hesitant to sign up for hospice b/c she doesn't like other people taking care of her, which is why he spent 12 hours every day at her senior care. He knows that she has very poor quality of life but he doesn't think she's suffering. He will discuss end-of- life care with his daughter today. I also relayed these issues to the [facility] SW. Time spent in palliative care discussion: 40 min. ASHLEY BEY APRN July 19, 2016 08:28
[2016-07-19] MEDS: VITAMIN B COMP + C TABLET PO SCH (09:00)
[2016-07-19] MEDS: POLYETHYL.GLYCOL 3350 PACKET 17gm PO SCH (09:00)
[2016-07-19] MEDS: RISPERIDONE 0.5 MG PO SCH ×2 (09:00→17:43)
--- NOTE | 2016-07-19 10:52 | NUR ---
BILLIARD PARLOR MANAGER -- FAMILY CONTACT SW provided education to present on the dying process. MATRIX BATH ATTENDANT at facility had spoken with this SW that she recommended hospice to the family today. has called his sons and daughter to discuss. SW educated on familiar setting for pt. Pt is now sleeping more and refusing food which indicates the end of life. SW educated on these things and provided educational material to explain. SW also educated on how hospice could benefit and this SW did not recommend that the pt go to their home unless there was 24 hour care present.
--- NOTE | 2016-07-19 11:01 | NUR ---
Status/Sleep 9.5 hrs According to 15 minute observation sheets pt asleep at 2200 and up at 815 pt slept 9.5 hours. Pt's came on unit right when this nurse came on shift. Pt's wanted to know how pt had done over night. This nurse had enrollment clerk talk to him since this nurse hadn't received report yet. During reported enrollment clerk informed this nurse pt hadn't peed since 1130 yesterday am, pt had been bladder scanned twice per report. Arline WOODS came on unit and update given on pt. rAline went and talked with pt's about options. Per conversations with pt's , he is wanting to get hospice care involved in pt's care. SW is talking with pt about hospice care at this time. Pt is not eating at all today or drinking, even with encouragement from . Pt has spit out any food/drink that has been offered. Unable to get pt to take any Meds today. Pt is sitting in recliner in the day room at this time.
[2016-07-19] MEDS: ACETAMINOPHEN 325 MG TABLET PO PRN (12:13)
[2016-07-19 16:00] VITALS: BP 146/94; PULSE 72; RESP 16; TEMP 97.8; O2SAT 97
[2016-07-19 17:35] VITALS: PULSE 68
[2016-07-19] MEDS: HALOPERIDOL 1 MG/0.5 ML ORAL LIQUID PO PRN (18:58)
[2016-07-19] MEDS: MIRTAZAPINE 15 MG SOLU-TAB PO SCH (19:28)
--- NOTE | 2016-07-19 19:31 | NUR ---
Shift Summary/PRN Assumed patient care at 1700 and assessment completed at 1735. Patient is in dayroom recliner at time of assessment; bright affect (smiles readily and is pleasant/cooperative) with and daughter present. She ambulates with x1 assist (uses walker inconsistently due to a seemingly poor comprehension of how to use it); gait is slow/steady and she allows her family to assist/cue for safety/direction as needed. Eats 1/2 of her grilled ham and cheese sandwich for supper (with family assist/encouragement). Compliant with HS medications. Continent of urine and voids several times this evening. Becomes quieter, with more of a flat affect, after her daughter leaves and as the evening progresses. Irritable tones with and staff. Haldol 1 mg. liquid given po at 1858 prior to pending shower and for changing mood (and per request). Patient is currently in a happy mood, readily compliant with HS medications, and sitting in dayroom recliner watching an movie and interacting pleasantly with staff. No physical or verbal aggression is noted.
[2016-07-19 19:35] VITALS: PULSE 68
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
--- NOTE | 2016-07-20 05:59 | NUR ---
Summary After going to sleep at 2144, patient has been asleep since. No further behaviors after providing hs cares. patient was checked on routinely. Patient is still asleep at this time.
[2016-07-20 06:32] VITALS: BP 163/78; PULSE 69; RESP 16; TEMP 97; O2SAT 97
--- NOTE | 2016-07-20 06:51 | GENPN ---
[facility] Subjective Date DATE: 07/20/16 TIME: 06:44 Subjective/Severity of Illness Medications Current Medications Medications (Trade) Dose Ordered Sig/Carlie Start Time Stop Time Status Last Admin Dose Admin Ziprasidone (Geodon) 10 mg Q2HR PRN 07/04/16 12:15 07/04/16 19:54 DC 07/04/16 12:11 10 MG Citalopram Hydrobromide (Celexa) 40 mg DAILY 07/05/16 09:00 Future Hold 07/08/16 08:23 40 MG Lorazepam (Ativan) 1 mg BID 07/04/16 21:00 07/08/16 15:58 DC 07/08/16 08:23 1 MG Polyethylene Glycol (Miralax) 17 g DAILY 07/05/16 09:00 Future hold 07/18/16 07:58 17 G Quetiapine Fumarate (Seroquel) 25 mg BID 07/04/16 21:00 07/05/16 16:12 DC 07/05/16 09:00 25 MG Vitamin B Complex (Total B + C) 1 tab DAILY 07/05/16 09:00 07/18/16 07:57 1 TAB Miscellaneous Medication (May use PRN orders) 1 PRN PRN 07/04/16 16:00 Haloperidol (Haldol) 1 mg Q6H PRN 07/04/16 16:00 07/12/16 19:35 1 MG Lorazepam (Ativan) 1 mg Q6H PRN 07/04/16 16:00 Lorazepam (Ativan) 1 mg Q6H PRN 07/04/16 16:00 Haloperidol Lactate (Haldol 5 Mg/ml Inj) 1 mg Q6H PRN 07/04/16 16:00 Lorazepam (Ativan Intensol) 1 mg Q6H PRN 07/05/16 04:15 07/13/16 16:30 1 MG Quetiapine Fumarate (Seroquel) 50 mg BID 07/05/16 21:00 07/06/16 06:14 DC 07/05/16 21:00 50 MG Senna/Docusate Sodium (Senna Plus) 2 tab BID 07/05/16 21:00 Future Hold 07/08/16 17:44 2 TAB Quetiapine Fumarate (Seroquel) 50 mg BID 07/06/16 09:00 07/06/16 10:39 DC Risperidone (Risperdal) 0.25 mg BID 07/06/16 21:00 07/10/16 18:48 DC 07/10/16 08:27 0.25 MG Acetaminophen (Tylenol Regular Strength) 1-2 tabs Q5H PRN 07/08/16 04:30 07/19/16 12:13 650 MG Lorazepam (Ativan) 0.5 mg BID 07/08/16 21:00 07/09/16 09:11 DC 07/09/16 08:54 0.5 MG Lorazepam (Ativan) 0.5 mg BID 07/08/16 21:00 Future Hold Cephalexin HCl (Keflex) 500 mg Q8HR 07/09/16 10:00 07/13/16 08:34 DC Ceftriaxone Sodium (Rocephin) 1 g DAILY 07/09/16 11:45 07/13/16 08:34 DC 07/12/16 14:41 1 G Lidocaine HCl (Xylocaine 1% 5 ml) 21 mg DAILY 07/10/16 09:00 07/11/16 08:26 DC 07/11/16 08:25 21 MG Risperidone (Risperdal) 0.5 mg 07/11/16 09:00 07/19/16 06:16 DC 07/18/16 07:57 0.5 MG Lidocaine HCl (Xylocaine 1%) 21 mg DAILY 07/11/16 09:00 07/12/16 14:42 DC 07/11/16 08:24 21 MG Bisacodyl (Dulcolax) 10 mg DAILY PRN 07/11/16 14:45 07/11/16 14:48 10 MG Lidocaine HCl (Xylocaine 1% 5 ml) 21 mg DAILY 07/13/16 09:00 07/13/16 10:01 DC Haloperidol (Haldol Liquid) 1 mg Q6H PRN 07/12/16 16:00 07/19/16 18:58 1 MG Levofloxacin (LEVAQUIN 250 mg tablet) 250 mg ACB 07/14/16 06:30 07/19/16 08:00 DC 07/18/16 07:57 250 MG Al Hydroxide/Mg Hydroxide (Maalox Plus Xs) 30 ml Q3-4H PRN 07/17/16 12:15 07/17/16 12:20 30 ML Magnesium Hydroxide (Mom) 30 ml DAILY PRN 07/18/16 08:45 07/18/16 08:37 30 ML Risperidone (Risperdal M) 0.5 mg BID. 07/19/16 09:00 07/19/16 17:43 0.5 MG Mirtazapine (Remeron Solu-Tab) 7.5 mg HS 07/19/16 21:00 07/19/16 19:28 7.5 MG Subjective Patient seen and chart reviewed. Case discussed w RN. 81 year old white female admitted here to [facility] secondary to refusal of cares, aggression towards and staff. RN reports she continues to only take in little to no nourishment. RN reports she did eat a bit for her daughter. She did get a PRN of Haldol at the request of her which helped moderately with evening cares. They report she was still resistive and physical, but they were able to bathe her. RN reports she became quickly sedated after meds and the bath and then slept quite well last night. She has slept 8 hours and is still asleep this morning. I was able to speak with her this morning. He was pleased about her bit of intake yesterday and was also pleased about trying the medications as dissolvable formulations. He agreed to the mirtazapine and was hopeful this would help w intake also. Appetite remains quite poor. She's not voided in past 24 hours and will likely need straight cathed this morning. RN reports that other than the shower/evening cares, she did better thru the day. Time of Service: 06:30 Start Time: 06:30 Stop Time: 07:00 Care >50% of this visit spent in counseling/coordination care. [facility] Exam Vitals Vital Signs Date Time Temp Pulse Resp B/P Pulse Ox O2 Delivery O2 Flow Rate FiO2 07/20/16 06:32 97.0 69 16 163/78 97 Room Air Physical examination performed by the hospitalist. Height (Feet): 5 Height (Inches): 3.00 Mental Status Exam Muscle Strength/Tone: Weak Dressing: Casual Grooming: Fair Attitude: Cooperative Eye Contact: Fair Speech: Normal Volume: Soft Rhythm: Appropriate Rhythm Sensory: Drowsy Orientation: Disoriented to time, Disoriented to place, Disoriented to situation, Oriented to person Mood: Irritable Affect: Blunted Thought Organization: Disorganized, Confused Thought Content: Ruminations Attention Span/Concentration: Distractable Memory: Poor-recent Suicidal Ideation: None Homicidal Ideation: None Insight: Poor Judgment: Poor Impulse Control: Poor Laboratory Tests Test 07/19/16 07:51 White Blood Count 14.3T/MM3 Red Blood Count 4.23M/MM3 Hemoglobin 12.7GM/DL Hematocrit 38.7% Mean Corpuscular Volume 91.5UM3 Mean Corpuscular Hemoglobin 30.0UUG Mean Corpuscular Hemoglobin Concent 32.8GM/DL RDW Standard Deviation 44.3FL Platelet Count 145T/MM3 Mean Platelet Volume 10.2UM3 Immature Granulocyte % (Auto) 0.1% Neutrophils (%) (Auto) 25.8% Lymphocytes (%) (Auto) 70.0% Monocytes (%) (Auto) 3.2% Eosinophils (%) (Auto) 0.6% Basophils (%) (Auto) 0.3% Absolute Immature Granulocyte (auto 0.02T/MM3 Absolute Neutrophils (auto) 3.7T/MM3 Absolute Lymphocytes (auto) 10.0T/MM3 Absolute Monocytes (auto) 0.5T/MM3 Absolute Eosinophils (auto) 0.1T/MM3 Absolute Basophils (auto) 0.0T/MM3 Turbidity < 20 Sodium Level 145MEQ/L Potassium Level 5.1MEQ/L Chloride Level 106MEQ/L Carbon Dioxide Level 30MEQ/L Anion Gap 9MEQ/L Blood Urea Nitrogen 21.0MG/DL Creatinine 1.3MG/DL Glomerular Filtration Rate Calc 39 BUN/Creatinine Ratio 16RATIO Glucose Level 103MG/DL Calculated Osmolality 282MOSM/KG Calcium Level 9.8MG/DL Icterus Index < 2 Chemistry Specimen Hemolysis 24 Assessment and Plan (1) Major neurocognitive disorder Assessment: with behavioral disturbance 07/06/16: Discontinue Seroquel due to concerns of urinary retention; start Risperdal 0.25mg PO BID alternatively. Discussed this with /DPOA, who is in agreement with plan after discussion of risks/benefits. 07/07/16: Cont current medications 07/08/16: Encourage fluid intake. Obtain UA today. 07/09/16: Patient has been started on Rocephin by hospitalist for UTI. Hold Celexa, Lorazepam, Senna, Glycol. RN please use Haldol for PRN first rather than Lorazepam 07/10/16: Increase Risperidone to 0.5mg BID. Patient will benefit from re- hydration with IVF since she has poor intake 07/11/16 Continue current care 07/12/16 Continue current care 07/13/16 Continue current care 07/14/16: Continue current care - will discuss use of Levofloxacin with medical team. Family wishes to continue encouraging PO intake rather than IV fluids as recommended by medical team. 07/15/16: Improving overall - suspect behavior will continue to improve as course of antibiotics progresses and is completed. 07/16/16: Will replace Ruiz as it is believed straight cath multiple times daily likely contributing to agitation. Sleep improved. Will reassess mood/ cooperation after AM meds. May need to take AM meds prior to attempting cares. 07/17/16: Patient doing well today; continue current care and monitor for any continued lability or combativeness today. 07/18/16: Monitor behavior as patient finishes course of Levaquin. Suggest further reassessment of goals of care along with ; he again states today that he does not feel patient will tolerate IV fluids though poor PO intake is concerning. Continue current medications for the time being. 07/19/16: Start Mirtazapine to target appetite hoping to improve intake. Will use soluble tabs to avoid adherence. Will also switch the Risperidone to dissolvable. 07/20/16: Continue mirtazapine (has just received one dose thus far) and risperidone for now. Monitor urinary retention. She just completed a course of Levaquin also it appears. Met w and discussed all of this. Suggested considering hospice care in the home if he wishes to take her home. (2) Delirium due to general medical condition (3) UTI (urinary tract infection) (4) CVA (cerebral vascular accident) (5) Chronic lymphocytic leukemia (6) CKD (chronic kidney disease), stage III (7) Hypertension (8) Leukocytosis (9) Urinary retention Cont. current psych. meds OLI TALBOT MD July 20, 2016 06:49
[2016-07-20 08:00] VITALS: BP 163/78; PULSE 69; RESP 16; TEMP 97; O2SAT 97
[2016-07-20 11:19] VITALS: BP 166/80; PULSE 79; RESP 18; TEMP 98; O2SAT 98
[2016-07-20] MEDS: VITAMIN B COMP + C TABLET PO SCH (12:05)
[2016-07-20] MEDS: RISPERIDONE 0.5 MG PO SCH ×2 (12:05→17:19)
[2016-07-20] MEDS: POLYETHYL.GLYCOL 3350 PACKET 17gm PO SCH (12:05)
[2016-07-20] MEDS: ACETAMINOPHEN 325 MG TABLET PO PRN (13:04)
--- NOTE | 2016-07-20 15:20 | NUR ---
STATUS bladder scan was done this morning and patient had 792 ml, Heather PACKER straight cath this morning around 0730 and 700 mL was retrieved. After procedure was done patient went back to sleep and woke up at 1130. Patient was compliant with medications this morning, she complain of pain at 1300 Tylenol 650 mg was given for headache. Patient has been in a happy mood, no aggressive behaviors noted, she has been visiting with family today. NO concerns or needs at the moment.
--- NOTE | 2016-07-20 15:20 | NUR ---
SLEEP NOTE PATIENT WENT TO SLEEP AT 2145 AND WOKE UP AT 1130 THIS MORNING.
[2016-07-20 16:05] VITALS: BP 169/74; PULSE 98; RESP 18; TEMP 97.8; O2SAT 99
--- NOTE | 2016-07-20 17:55 | NUR ---
SUMMARY patient woke up at 1130 this morning so she did not ate breakfast, she did ate 100% of her lunch, and 75 % of dinner, family was here visiting with her, she was in a pleasant mood, smiling and socializing with other patient and family, she was compliant with medications, she was drinking fluids throughout the day, has voided twice today. In the evening around 1630 her mood changed, she wanted to get out of here and would tell her " lets get out of here come on", she would also tell staff to shut up when we tried to redirect, she was wondering around the day room, after a while she was happy and sat down for dinner and invited other patient to sit with them. Patient complain of a headache this after noon, tylenol 650 mg PO PRN was given during follow up patient denied pain. Patient denies needs or concerns at the moment.
[2016-07-20 19:26] VITALS: BP 145/68; PULSE 74; RESP 16; TEMP 96.9; O2SAT 97
[2016-07-20] MEDS: MIRTAZAPINE 15 MG SOLU-TAB PO SCH (19:30)
[2016-07-20 20:27] VITALS: PULSE 72; RESP 16
--- NOTE | 2016-07-20 21:00 | NUR ---
Bathroom Pt. got out of bed with assistance to walk to bathroom. Pt. stated 'yes' she needed to go to bathroom. At the toilet, pt. refused to pull pants down and sit on toilet, stated 'no, I don't want to be naked'. Assisted back to bed. Bed alarm on.
--- NOTE | 2016-07-20 21:30 | NUR ---
Bedtime Pt. went to bed and is sleeping now.
--- NOTE | 2016-07-20 23:55 | NUR ---
Chart Check 24 hour chart check completed
--- NOTE | 2016-07-21 05:48 | NUR ---
Sleep/Bladder Pt. slept well overnight; continues to sleep now. Pt. hasn't voided since yesterday afternoon. Bladder scanned = 425ml at this time.
[2016-07-21 08:30] VITALS: BP 142/70; PULSE 96; RESP 16; TEMP 97.8; O2SAT 99
--- NOTE | 2016-07-21 08:35 | PNPDOC ---
Subjective Date DATE: 07/21/16 TIME: 08:29 Subjective Marine was still sleeping, but reportedly had a good night. She had a good day yesterday - ate much better and was socializing with family. Later in the afternoon her mood shifted and she wanted to leave. She is still having low urine output, but yesterday it was better - though, she did require straight catheterization with about 700 mL return. Objective Vital Signs Vital signs Vital Signs Date Time Temp Pulse Resp B/P Pulse Ox O2 Delivery O2 Flow Rate FiO2 07/20/16 20:27 72 16 07/20/16 19:26 96.9 145/68 97 Room Air Height (Feet): 5 Height (Inches): 3.00 Weight (Kilograms): 59.900 General General Appearance: No Acute Distress Eyes (Brief) Eyes: FOUND: PERRL, NOT FOUND: scleral icterus ENMT (Brief) ENMT: FOUND: mucosa moist, NOT FOUND: pharnyx erythema Respiratory (Brief) Respiratory: FOUND: clear all [place], equal bilaterally Cardiovascular (Brief) Cardiac: FOUND: regular rate, regular rhythm Abdomen (Brief) Abdominal: FOUND: soft, NOT FOUND: distended Extremities (Brief) Extremity : Extremity Finding: NOT FOUND: edema Musculoskeletal (Brief) Musculoskeletal: NOT FOUND: deformity Integumentary (Brief) Integumentary: FOUND: dry, warm Sepsis Diagnostic Criteria Sepsis Confirmed/Suspected Infection: No Assessment & Plan Problems: (1) Leukocytosis Status: Acute (2) Urinary retention Status: Resolved Assessment & Plan: Salas inserted on 07/06/16 Discontinued on 07/13/16 Intermittent straight catheterizations (3) UTI (urinary tract infection) Status: Resolved Assessment & Plan: MICROBIOLOGY URINE CULTURE. Final 07/13/16 Organism 1 ESCHERICHIA COLI COLONY COUNT >100,000 CFU/ml Organism 2 ENTEROCOC FAECALIS - (GROUP D) COLONY COUNT >100,000 CFU/ml E COLI E FAECA(D) INTERP DORA INTERP DORA ------ --------- ------ --------- AMOX/CLAV ACID S <=2 AMPICILLIN S 4 CEFAZOLIN S <=4 CEFEPIME S <=1 CEFTAZIDIME S <=1 CEFTRIAXONE S <=1 CIPROFLOXACIN S <=0.25 S 1 ERTAPENEM S <=0.5 GENTAMICIN S <=1 LEVOFLOXACIN S <=0.12 S 1 LINEZOLID S 1 NITROFURANTOIN S <=16 S <=16 TETRACYCLINE S <=1 TOBRAMYCIN S <=1 TRIMETH/SULFA S <=20 PIPERACILL/TAZO S <=4 VANCOMYCIN S 1 (4) Aggressive behavior Status: Acute (5) Dementia Status: Chronic (6) Irritable bowel syndrome Status: Chronic (7) Chronic lymphocytic leukemia Status: Chronic (8) Hypertension Status: Chronic (9) Sleep apnea Status: Chronic (10) CVA (cerebral vascular accident) Status: Chronic (11) CKD (chronic kidney disease), stage III Status: Chronic (12) Anxiety Status: Acute Assessment Plan/Intensity of Service Urine retention - continue to bladder scan; may need to straight catheterize to relieve volumes in excess of 350 mL. CBC and BMP ordered for tomorrow to f/u on leukocytosis; hypernatremia; hyperkalemia. Levaquin course was completed on 07/19/16 - mental status showed improvement yesterday; oral intake also picked up. Anticipate to see ups and downs in her advanced dementia. Discharge is planned soon - will be going back to facility with hospice. Psychiatric progress notes reviewed. Code Status Do Not Resuscitate Hospital Course Summary Disclaimer The hospital course summary below is not to be considered part of the above Progress Note. Hospital Course Summary 07/04/16 Agree with admission to [facility]. Complete workup per Dr. Workman. Leukocytosis without evidence of SIRS or active infection. Would not treat at this time. In addition, she also has a history of CLL, which can skew results. There was no documentation of active treatment in the chart. Follow-up CBC on Thursday. History of chronic kidney disease, baseline creatinine unknown. Will reassess on Thursday. History of hypertension, but she is not on any antihypertensives. Will monitor. Provide a safe and supportive environment. 07/05/16- Patient continues agitated, inconsolable. Significant urinary retention last night. Will schedule bladder scan; straight cath PRN. If ongoing retention, place Salas. Assess KUB to make sure she does not have fecal retention that is causing her discomfort. Hx of CLL- likely cause of leukocytosis. Afebrile. Recent tx with Augmentin for URI. Recheck CBC in AM. Schedule tylenol for pain. BP remains elevated- continue to monitor at this time. May need to add medication if persists. 07/07/16 Salas catheter was inserted on 07/06/16 for retention. Urinalysis on 07/04/16 was unremarkable. Leukocytosis has improved, down to 13.3. KUB showed a moderate stool burden. She large soft-liquid bowel movements on Psychiatric progress notes reviewed: Discontinued Seroquel on 07/06/16 due to urinary retention; started Risperdal 0.25mg PO BID. 07/09/16 Salas catheter was inserted on 07/06/16 for retention. Urinalysis on today was positive for UTI. Initially started on Keflex however nursing staff reports she is refusing PO meds. Changed treatment of Rocephin 1 gm IM daily. Will re-evaluate over the next several days and will transition to PO Abx once behaviors have improved. Have nursing staff change out salas cath today. Will work on bladder re- training over the next few days. Continued leukocytosis. Will recheck CBC and BMP tomorrow morning. 07/10/16 Urine culture pending - cont. IM Rocephin since she was refusing Keflex. Continue bladder re-training. Leukocytosis is improving. Labs are stable despite not taking in much oral. Nurses don't think she will do well with an IV. SW recommends talking with her before ordering an IV. Will ask nurses to push oral fluids and will repeat BMP in am. She is hemodynamically stable. Psychiatric progress note reviewed: Hold Celexa, Lorazepam, Senna, Glycol. 07/11/16 Reviewed urine culture which is positive for Escherichia coli. It is pansensitive. Will continue on IM Rocephin as patient was refusing oral medications. Today is day 3 of treatment. Will check CBC and BMP tomorrow morning to follow blood counts, renal function and electrolytes. If patient continues to have hypernatremia, may consider giving a bolus of IV fluids for hydration. Continue to monitor blood pressure as it is mildly elevated, likely secondary to her behaviors. Dulcolax suppository when necessary for bowel motivation 07/13/16 Urine culture was finalized this morning, showing dual organism UTI with both Escherichia coli and enterococcus. The Escherichia coli was sensitive to Rocephin, but not enterococcus. This might explain her ongoing leukocytosis. Will start Levaquin 250 mg daily 7 days, which will cover both Escherichia coli and enterococcus. Discontinue Rocephin. If she is unable to take this orally, may need to start IVF (though nurses doubt pt would tolerate this). Chemistry panel shows slight elevation in creatinine, we'll need to monitor closely while on Levaquin. Psychiatric progress notes reviewed. 07/14/16 Salas catheter was discontinued yesterday, and patient has been able to void with minimal residuals so far. Continue Levaquin for dual organism UTI, day #2. Discussed dosing with pharmacy , and they agreed. We'll clarify wishes for IV fluids with patient's family. I do not feel that giving IV fluids would provide any long-term benefits. Later in the morning I met with Marine's and daughter. I updated them on her UTI and new abx as of yesterday, as well as the risks of Levaquin. We discussed the possibility of needing IVF, and both of them agreed that Marine would not do well with an IV. They would like to hold off on an IV unless absolutely necessary. 07/16/16 Today is day 4 of antimicrobial treatment of urinary tract infection with multiple pathogens present. Continue with Levaquin daily. Planned. End date of . As Levaquin may cause some changes in mental status and/or confusion. This is the only option for treatment of both Escherichia coli and Enterococ Faecalis. Recheck CBC and BMP today given persistent leukocytosis Continue to monitor blood pressure as she is borderline elevated. If we need to consider initiating an antihypertensive medication need to discuss this further with patient's family. Family has preferred to hold off on IV fluids. Will continue to encourage oral intake. Psychiatric notes reviewed 07/19/16 Labs are repeated this morning. White count improved to 14.3. Sodium increased to 145, and she is hyperkalemic with a potassium level of 5.1. Creatinine increased slightly to 1.3. She remains oliguric, and bladder scan showed 275 mL. Her last void was yesterday around 11 AM. Her oral intake has been very poor. Today was her last day of Levaquin for dual organism UTI. After labs resulted I discussed results with Mr. Tellez. Palliative care discussion ensued. He realizes that she will not get better and that by giving any IVF it will only delay the inevitable. She no longer has the ability to feed herself, take in adequate calories, perform any ADLs, and communicate effectively. She is incontinent of bowel and bladder. Her weight declined 3 kg after the 1st week - will recheck again today. He is hesitant to sign up for hospice b/c she doesn't like other people taking care of her, which is why he spent 12 hours every day at her [place] [facility]. He knows that she has very poor quality of life but he doesn't think she's suffering. He will discuss end-of- life care with his daughter today. I also relayed these issues to the [facility] SW. Time spent in palliative care discussion: 40 min. 07/21/16 Urine retention - continue to bladder scan; may need to straight catheterize to relieve volumes in excess of 350 mL. CBC and BMP ordered for tomorrow to f/u on leukocytosis; hypernatremia; hyperkalemia. Levaquin course was completed on 07/19/16 - mental status showed improvement yesterday; oral intake also picked up. Anticipate to see ups and downs in her advanced dementia. Discharge is planned soon - will be going back to facility with hospice. Psychiatric progress notes reviewed. ASHLEY EBY FILM ARCHIVIST July 21, 2016 08:32
[2016-07-21] MEDS: VITAMIN B COMP + C TABLET PO SCH ×2 (09:00→10:24)
[2016-07-21] MEDS: POLYETHYL.GLYCOL 3350 PACKET 17gm PO SCH (09:00)
[2016-07-21] MEDS: RISPERIDONE 0.5 MG PO SCH ×3 (09:00→17:53)
--- NOTE | 2016-07-21 09:00 | NUR ---
SLEEP 10.75 Hours Pt went to bed at 2045 last night and got out of bed at 0945. Pt slept a total of 10.75 hours as documented on the 15 minute observation forms.
--- NOTE | 2016-07-21 10:09 | NUR ---
BEATRICE MARQUIS IS ANTICIPATING D/C BACK TO FACILITY TOMORROW. DR CASANOVA RECOMMEND HOSPICE AND FACILITY IS AWARE. FACILITY STATES THAT THEY USE A HOSPICE FROM [facility]. FACILITY WILL VISIT WITH SPOUSE AND SET UP HOSPICE EVAL IF INDICATED. CM IS AWAITING A RETURN CALL FOR A ARBORIST REPRESENTATIVE TIME FROM FACILITY. PER [facility] STAFF PT IS SAFE TO TRANSPORT VIA FACILITY TRANSPORTATION.
[2016-07-21] MEDS: ACETAMINOPHEN 325 MG TABLET PO PRN (10:34)
--- NOTE | 2016-07-21 13:27 | NUR ---
Nutrition risk r/t poor PO intake Diet: regular; intake: refused to 100%; RD visited with pt and her , who were sitting in day room. He states that nsg have been bringing her snacks, as needed. No additional intervention is required at this time.
--- NOTE | 2016-07-21 15:04 | NUR ---
BEATRICE BARRON SPOKE WITH DEONTE FROM [facility] AND THEY WILL MOTOR VEHICLE REPRESENTATIVE PT TOMORROW AT 11:00AM. BEATRICE SPOKE WITH SPOUSE RAMÓN AND HE IS AWARE OF D/C PLAN FOR TOMORROW AND MOTOR VEHICLE REPRESENTATIVE TIME. RAMÓN AWARE TO CONTACT CM IF NEEDS ARISE.
--- NOTE | 2016-07-21 15:04 | NUR ---
Status Pt was asleep during assessment, she was compliant with morning cares and has take all her medications so far today. Her has been here since 0630 this morning and has catered to her needs. Pt has not had any verbally or physically aggressive behaviors so far this shift. Pt is in a good mood as long as her is around, when he leaves her side she becomes restless and her mood changes quickly. Pt is currently in the day room with staff doing an activity.
--- NOTE | 2016-07-21 17:05 | NUR ---
RECORDER GRAVITY PROSPECTING--PM GROUP Pt. was present and actively participated in psychoeducational group facilitated by [facility]. Topic was on importance of family relationships and keys to good communication. Pt. was alert, Ox1, calm, with pleasant mood. She is easily distracted because she does not always understand content of discussion. Identified ways families can be helpful and supportive to overall well being of patient. Talked about importance of being respectful and willing to listen. Finished group by listening to music. Identified it as a means to help calm and soothe people when they are feeling discouraged. Pt. smiled at recognition of some of the songs. She sang along and then stood up and danced with her to some of songs. Pt. appeared very happy and talked about her memories of dancing.
[2016-07-21] MEDS ORDERED: ACET-2321 PO (17:59)
[2016-07-21] MEDS ORDERED: RISP0.5T5 PO (18:04)
--- NOTE | 2016-07-21 18:06 | PDOCECFAO ---
Admission Orders Admission Orders Admit to: [facility] Allergies: Coded Allergies: ARUNA Inhibitors (Verified Allergy, Unknown, 07/04/16) Admitting Diagnosis Unspecified Neurocognitive Disorder W Behavioral D Admitting Physician Ruth Workman MD Code Status Do Not Resuscitate Anticipated LOS: Greater than 30 days Rehab Potential: Poor Diet: Regular Wound/Incision Care: NA Not Applicable JOHN TARANGO MD July 21, 2016 18:06
--- NOTE | 2016-07-21 18:17 | GENPN ---
[facility] Subjective Date DATE: 07/21/16 TIME: 18:07 Subjective/Severity of Illness Medications Current Medications Medications (Trade) Dose Ordered Sig/Carlie Start Time Stop Time Status Last Admin Dose Admin Ziprasidone (Geodon) 10 mg Q2HR PRN 07/04/16 12:15 07/04/16 19:54 DC 07/04/16 12:11 10 MG Citalopram Hydrobromide (Celexa) 40 mg DAILY 07/05/16 09:00 Future Hold 07/08/16 08:23 40 MG Lorazepam (Ativan) 1 mg BID 07/04/16 21:00 07/08/16 15:58 DC 07/08/16 08:23 1 MG Polyethylene Glycol (Miralax) 17 g DAILY 07/05/16 09:00 Future hold 07/20/16 12:05 17 G Quetiapine Fumarate (Seroquel) 25 mg BID 07/04/16 21:00 07/05/16 16:12 DC 07/05/16 09:00 25 MG Vitamin B Complex (Total B + C) 1 tab DAILY 07/05/16 09:00 07/21/16 10:24 1 TAB Miscellaneous Medication (May use PRN orders) 1 PRN PRN 07/04/16 16:00 Haloperidol (Haldol) 1 mg Q6H PRN 07/04/16 16:00 07/12/16 19:35 1 MG Lorazepam (Ativan) 1 mg Q6H PRN 07/04/16 16:00 Lorazepam (Ativan) 1 mg Q6H PRN 07/04/16 16:00 Haloperidol Lactate (Haldol 5 Mg/ml Inj) 1 mg Q6H PRN 07/04/16 16:00 Lorazepam (Ativan Intensol) 1 mg Q6H PRN 07/05/16 04:15 07/13/16 16:30 1 MG Quetiapine Fumarate (Seroquel) 50 mg BID 07/05/16 21:00 07/06/16 06:14 DC 07/05/16 21:00 50 MG Senna/Docusate Sodium (Senna Plus) 2 tab BID 07/05/16 21:00 Future Hold 07/08/16 17:44 2 TAB Quetiapine Fumarate (Seroquel) 50 mg BID 07/06/16 09:00 07/06/16 10:39 DC Risperidone (Risperdal) 0.25 mg BID 07/06/16 21:00 07/10/16 18:48 DC 07/10/16 08:27 0.25 MG Acetaminophen (Tylenol Regular Strength) 1-2 tabs Q5H PRN 07/08/16 04:30 07/21/16 10:34 650 MG Lorazepam (Ativan) 0.5 mg BID 07/08/16 21:00 07/09/16 09:11 DC 07/09/16 08:54 0.5 MG Lorazepam (Ativan) 0.5 mg BID 07/08/16 21:00 Future Hold Cephalexin HCl (Keflex) 500 mg Q8HR 07/09/16 10:00 07/13/16 08:34 DC Ceftriaxone Sodium (Rocephin) 1 g DAILY 07/09/16 11:45 07/13/16 08:34 DC 07/12/16 14:41 1 G Lidocaine HCl (Xylocaine 1% 5 ml) 21 mg DAILY 07/10/16 09:00 07/11/16 08:26 DC 07/11/16 08:25 21 MG Risperidone (Risperdal) 0.5 mg 07/11/16 09:00 07/19/16 06:16 DC 07/18/16 07:57 0.5 MG Lidocaine HCl (Xylocaine 1%) 21 mg DAILY 07/11/16 09:00 07/12/16 14:42 DC 07/11/16 08:24 21 MG Bisacodyl (Dulcolax) 10 mg DAILY PRN 07/11/16 14:45 07/11/16 14:48 10 MG Lidocaine HCl (Xylocaine 1% 5 ml) 21 mg DAILY 07/13/16 09:00 07/13/16 10:01 DC Haloperidol (Haldol Liquid) 1 mg Q6H PRN 07/12/16 16:00 07/19/16 18:58 1 MG Levofloxacin (LEVAQUIN 250 mg tablet) 250 mg ACB 07/14/16 06:30 07/19/16 08:00 DC 07/18/16 07:57 250 MG Al Hydroxide/Mg Hydroxide (Maalox Plus Xs) 30 ml Q3-4H PRN 07/17/16 12:15 07/17/16 12:20 30 ML Magnesium Hydroxide (Mom) 30 ml DAILY PRN 07/18/16 08:45 07/18/16 08:37 30 ML Risperidone (Risperdal M) 0.5 mg BID. 07/19/16 09:00 07/21/16 17:53 0.5 MG Mirtazapine (Remeron Solu-Tab) 7.5 mg HS 07/19/16 21:00 07/20/16 19:30 7.5 MG Subjective Patient seen and chart reviewed. Case discussed with RN. 81 year old white female admitted here to [facility] secondary to refusal of cares, aggression towards and staff. RN reports she continues to only take in little nourishment when her family is presented. Patient was seen to be alert and oriented to person. She was able to recognize her of 51 years, but appears pleasantly confused. reports that she was able to eat a good lunch this afternoon. Patient was started on Mirtazapine 7.5mg and she is tolerating her medication and there is no side effect . Discussed discharge with her and he is agreeable to discharge to [place] in an intermediate care facility where the lives only 3 blocks away. Patient will get a UA prior to discharge tomorrow. Time of Service: 16:30 Start Time: 16:30 Stop Time: 16:45 Care >50% of this visit spent in counseling/coordination care. [facility] Exam Vitals Vital Signs Date Time Temp Pulse Resp B/P Pulse Ox O2 Delivery O2 Flow Rate FiO2 07/21/16 08:30 97.8 96 16 142/70 99 Room Air Physical examination performed by the hospitalist. Height (Feet): 5 Height (Inches): 3.00 Mental Status Exam Muscle Strength/Tone: Weak Dressing: Casual Grooming: Fair Attitude: Tense Motor Activity: Agitation (history) Eye Contact: Fair Speech: Slowed Volume: Soft Rhythm: Appropriate Rhythm Sensory: Alert Orientation: Disoriented to time, Disoriented to place, Disoriented to situation, Oriented to person Mood: Neutral Affect: Exaggerated Rate of Thoughts: Appropriate Rate Thought Organization: Disorganized Associations: Loose-associations Abstract Reasoning: Impaired, concrete Computation: Poor Computation Thought Content: Delusions Perception/Psychotic: Psychotic Attention Span/Concentration: Inattentive Fund of Knowledge: Poor fund of knowledge Memory: Poor-immediate, Poor-recent, Poor-remote Suicidal Ideation: None Homicidal Ideation: None Insight: Poor Judgment: Poor Impulse Control: Poor Assessment and Plan (1) Major neurocognitive disorder Assessment: with behavioral disturbance 07/06/16: Discontinue Seroquel due to concerns of urinary retention; start Risperdal 0.25mg PO BID alternatively. Discussed this with /DPOA, who is in agreement with plan after discussion of risks/benefits. 07/07/16: Cont current medications 07/08/16: Encourage fluid intake. Obtain UA today. 07/09/16: Patient has been started on Rocephin by hospitalist for UTI. Hold Celexa, Lorazepam, Senna, Glycol. RN please use Haldol for PRN first rather than Lorazepam 07/10/16: Increase Risperidone to 0.5mg BID. Patient will benefit from re- hydration with IVF since she has poor intake 07/11/16 Continue current care 07/12/16 Continue current care 07/13/16 Continue current care 07/14/16: Continue current care - will discuss use of Levofloxacin with medical team. Family wishes to continue encouraging PO intake rather than IV fluids as recommended by medical team. 07/15/16: Improving overall - suspect behavior will continue to improve as course of antibiotics progresses and is completed. 07/16/16: Will replace Ruiz as it is believed straight cath multiple times daily likely contributing to agitation. Sleep improved. Will reassess mood/ cooperation after AM meds. May need to take AM meds prior to attempting cares. 07/17/16: Patient doing well today; continue current care and monitor for any continued lability or combativeness today. 07/18/16: Monitor behavior as patient finishes course of Levaquin. Suggest further reassessment of goals of care along with ; he again states today that he does not feel patient will tolerate IV fluids though poor PO intake is concerning. Continue current medications for the time being. 07/19/16: Start Mirtazapine to target appetite hoping to improve intake. Will use soluble tabs to avoid adherence. Will also switch the Risperidone to dissolvable. 07/20/16: Continue mirtazapine (has just received one dose thus far) and risperidone for now. Monitor urinary retention. She just completed a course of Levaquin also it appears. Met w and discussed all of this. Suggested considering hospice care in the home if he wishes to take her home. 07/21/16: Discharge patient tomorrow back to [place].UA today (2) Delirium due to general medical condition (3) UTI (urinary tract infection) (4) CVA (cerebral vascular accident) (5) Chronic lymphocytic leukemia (6) CKD (chronic kidney disease), stage III (7) Hypertension (8) Leukocytosis (9) Urinary retention Cont. current psych. meds JOHN TARANGO MD July 21, 2016 18:13
--- NOTE | 2016-07-21 18:30 | NUR ---
Summary Pt has been up and in the day room with her the entire shift. Pt has had no behaviors and received no PRN medications. Pt is currently in the day room watching television with her , staff is present.
[2016-07-21] MEDS: MIRTAZAPINE 15 MG SOLU-TAB PO SCH (19:27)
[2016-07-21 20:00] VITALS: BP 154/83; PULSE 84; RESP 16; TEMP 97.2; O2SAT 98
--- NOTE | 2016-07-22 | NUR ---
Status Pt was in GR playing piano with at start of shift. Another female pt came in to listen and they visited for awhile. Pt walking around with SBA, smiling talking to and others. Pt took medication while here. Pt alert to self. When pts left her mood changed instantly. She was mad, restless wandering and hard to redirect. Pt finally sat down for a few minutes but then she started yelling "help help me they are trying to kill me". Pt became combative, hitting and kicking, when staff were trying to get her to bed. Staff sat in her room with her d/t pt trying to crawl OOB. Pt in bed, bed locked in low position, SR up x3, call light in reach, bed alarm is on and functioning. Will continue to monitor.
--- NOTE | 2016-07-22 00:47 | NUR ---
Chart Check 24 hour chart check completed
--- NOTE | 2016-07-22 06:31 | NUR ---
Summary Pt went to bed at 2014 falling asleep at [id number]. Pt back to sleep at [id number] setting off alarm climbing OOB. Pt upset yelling get away from me, get out of my house you are trying to kill me. Pt back to sleep at 0515. Pt did take medication for the . Pt has been labile while awake and physically aggressive when she got OOB early this morning and with cares. As of 529 pt has not voided. Pt was bladder scanned three times : 200 mL, 202 mL and 404 mL. Pt was cooperative during bladder scan and is still awake at this time . As of 629 pt has had 2.5 hrs sleep. Will continue to monitor.
[2016-07-22] MEDS: POLYETHYL.GLYCOL 3350 PACKET 17gm PO SCH (07:30)
[2016-07-22] MEDS: VITAMIN B COMP + C TABLET PO SCH (07:30)
[2016-07-22] MEDS: RISPERIDONE 0.5 MG PO SCH (07:30)
[2016-07-22 08:47] VITALS: BP 153/82; PULSE 86; RESP 18; TEMP 97.9; O2SAT 97
[2016-07-22 08:54] LABS: BASOPHILS % (AUTO) 0.2 % (0-2); EOSINOPHILS % (AUTO) 0.3 % (0-4); HCT - HEMATOCRIT 36.8 % (36-46); HGB - HEMOGLOBIN 12.3 GM/DL (12-16); IMMATURE GRANULOCYTE # (AUTO) 0.03 T/MM3 (0.00-0.03); IMMATURE GRANULOCYTE % (AUTO) 0.2 % (0.0-0.5); LYMPHOCYTES % (AUTO) 54.6 % (23-45); MEAN CORPUSCULAR HGB 29.9 UUG (26-34); MEAN CORPUSCULAR HGB CONC(MCHC 33.4 GM/DL (31-37); MEAN CORPUSCULAR VOLUME 89.5 UM3 (80-100); MONOCYTES # (AUTO) 0.6 T/MM3 (0-0.8); NEUTROPHILS #(AUTO)-ABSOLUTE 5.9 T/MM3 (1.8-7.7); NEUTROPHILS % (AUTO) 40.7 % (33-66); RED BLOOD COUNT 4.11 M/MM3 (4.00-5.20); WBC - WHITE BLOOD COUNT 14.6 T/MM3 (4.5-11.0)
[2016-07-22 09:12] LABS: ANION GAP 13 MEQ/L (5-15); BUN/CREATININE RATIO 17 RATIO (6-26); CALCIUM 9.4 MG/DL (8.4-10.2); CHLORIDE 103 MEQ/L (98-107); CO2 - CARBON DIOXIDE 26 MEQ/L (22-30); CREATININE 1.2 MG/DL (0.7-1.2); GLOMERULAR FILTRATION RATE 43; GLUCOSE 230 MG/DL (65-110); POTASSIUM 3.9 MEQ/L (3.6-5); SODIUM 142 MEQ/L (134-144)
--- NOTE | 2016-07-22 10:00 | NUR ---
OUTPATIENT INTERVIEWING CLERK--AM GROUP Pt. was present and actively engaged in the psychoeducational group facilitated by [facility]. Her was also present for the group. Topic was on importance of participation in groups and activities as part of all patients' treatment plans. Reminded patients that each activity is selected for a specific purpose that will encourage socialization, provide education, or stimulate cognitive functioning. Goodbyes were said to patient who was leaving today. Played music and sang songs to finish up the groups. Pt. continued to appear to be relaxed and to be in a positive mood with active participation. She smiled frequently, sang along with many of the songs, and clapped and moved her feet in a dancing motion.
--- NOTE | 2016-07-22 10:31 | NUR ---
status pt was awake when this nurse assumed cares. pt only slept a total of 2.5hrs. has been pleasant and cooperative this am. smiling and visiting with staff. ate 100% of breakfast and was compliant with am medication.
--- NOTE | 2016-07-22 10:44 | NUR ---
PRN gave pt a prn ativan for her to discharge. pt has a 2.5hr ride back to facility.
--- NOTE | 2016-07-22 11:13 | GENPN ---
[facility] Subjective Date DATE: 07/22/16 TIME: 11:06 Subjective/Severity of Illness Medications Current Medications Medications (Trade) Dose Ordered Sig/Carlie Start Time Stop Time Status Last Admin Dose Admin Ziprasidone (Geodon) 10 mg Q2HR PRN 07/04/16 12:15 07/04/16 19:54 DC 07/04/16 12:11 10 MG Citalopram Hydrobromide (Celexa) 40 mg DAILY 07/05/16 09:00 Future Hold 07/08/16 08:23 40 MG Lorazepam (Ativan) 1 mg BID 07/04/16 21:00 07/08/16 15:58 DC 07/08/16 08:23 1 MG Polyethylene Glycol (Miralax) 17 g DAILY 07/05/16 09:00 Future hold 07/22/16 07:30 17 G Quetiapine Fumarate (Seroquel) 25 mg BID 07/04/16 21:00 07/05/16 16:12 DC 07/05/16 09:00 25 MG Vitamin B Complex (Total B + C) 1 tab DAILY 07/05/16 09:00 07/22/16 07:30 1 TAB Miscellaneous Medication (May use PRN orders) 1 PRN PRN 07/04/16 16:00 Haloperidol (Haldol) 1 mg Q6H PRN 07/04/16 16:00 07/12/16 19:35 1 MG Lorazepam (Ativan) 1 mg Q6H PRN 07/04/16 16:00 07/22/16 10:42 1 MG Lorazepam (Ativan) 1 mg Q6H PRN 07/04/16 16:00 Haloperidol Lactate (Haldol 5 Mg/ml Inj) 1 mg Q6H PRN 07/04/16 16:00 Lorazepam (Ativan Intensol) 1 mg Q6H PRN 07/05/16 04:15 07/13/16 16:30 1 MG Quetiapine Fumarate (Seroquel) 50 mg BID 07/05/16 21:00 07/06/16 06:14 DC 07/05/16 21:00 50 MG Senna/Docusate Sodium (Senna Plus) 2 tab BID 07/05/16 21:00 Future Hold 07/08/16 17:44 2 TAB Quetiapine Fumarate (Seroquel) 50 mg BID 07/06/16 09:00 07/06/16 10:39 DC Risperidone (Risperdal) 0.25 mg BID 07/06/16 21:00 07/10/16 18:48 DC 07/10/16 08:27 0.25 MG Acetaminophen (Tylenol Regular Strength) 1-2 tabs Q5H PRN 07/08/16 04:30 07/21/16 10:34 650 MG Lorazepam (Ativan) 0.5 mg BID 07/08/16 21:00 07/09/16 09:11 DC 07/09/16 08:54 0.5 MG Lorazepam (Ativan) 0.5 mg BID 07/08/16 21:00 Future Hold Cephalexin HCl (Keflex) 500 mg Q8HR 07/09/16 10:00 07/13/16 08:34 DC Ceftriaxone Sodium (Rocephin) 1 g DAILY 07/09/16 11:45 07/13/16 08:34 DC 07/12/16 14:41 1 G Lidocaine HCl (Xylocaine 1% 5 ml) 21 mg DAILY 07/10/16 09:00 07/11/16 08:26 DC 07/11/16 08:25 21 MG Risperidone (Risperdal) 0.5 mg 07/11/16 09:00 07/19/16 06:16 DC 07/18/16 07:57 0.5 MG Lidocaine HCl (Xylocaine 1%) 21 mg DAILY 07/11/16 09:00 07/12/16 14:42 DC 07/11/16 08:24 21 MG Bisacodyl (Dulcolax) 10 mg DAILY PRN 07/11/16 14:45 07/11/16 14:48 10 MG Lidocaine HCl (Xylocaine 1% 5 ml) 21 mg DAILY 07/13/16 09:00 07/13/16 10:01 DC Haloperidol (Haldol Liquid) 1 mg Q6H PRN 07/12/16 16:00 07/19/16 18:58 1 MG Levofloxacin (LEVAQUIN 250 mg tablet) 250 mg ACB 07/14/16 06:30 07/19/16 08:00 DC 07/18/16 07:57 250 MG Al Hydroxide/Mg Hydroxide (Maalox Plus Xs) 30 ml Q3-4H PRN 07/17/16 12:15 07/17/16 12:20 30 ML Magnesium Hydroxide (Mom) 30 ml DAILY PRN 07/18/16 08:45 07/18/16 08:37 30 ML Risperidone (Risperdal M) 0.5 mg BID. 07/19/16 09:00 07/22/16 07:30 0.5 MG Mirtazapine (Remeron Solu-Tab) 7.5 mg HS 07/19/16 21:00 07/21/16 19:27 7.5 MG Subjective Patient seen and chart reviewed. Case discussed with RN. 81 year old white female admitted here to [facility] secondary to refusal of cares, aggression towards and staff. Patient was seen to be alert and oriented to person. She was seen to be participating in some exercise activities and appears to be enjoying it. Patient was started on Mirtazapine 7.5mg on 07/20 and she is tolerating her medication and there is no side effect . Patient will be discharging to [facility] today. There has not been any behavioral problem and she appears to be back to her baseline. There is report of diarrhea this morning after she got Mirilax. PRN: None in the last 24 hours. Time of Service: :00 Start Time: :00 Stop Time: :15 Care >50% of this visit spent in counseling/coordination care. [facility] Exam Vitals Vital Signs Date Time Temp Pulse Resp B/P Pulse Ox O2 Delivery O2 Flow Rate FiO2 07/22/16 08:47 97.9 86 18 153/82 97 Room Air Physical examination performed by the hospitalist. Height (Feet): 5 Height (Inches): 3.00 Mental Status Exam Muscle Strength/Tone: Weak Dressing: Casual Grooming: Fair Attitude: Cooperative Motor Activity: Normal Eye Contact: Fair Speech: Normal Volume: Normal Rhythm: Mumbled Sensory: Alert Orientation: Disoriented to time, Disoriented to place, Disoriented to situation, Oriented to person Mood: Neutral Affect: Restricted Rate of Thoughts: Delayed Thought Organization: Confused (Pleasantly so) Associations: Loose-associations Abstract Reasoning: Impaired, concrete Computation: Poor Computation Thought Content: Delusions Perception/Psychotic: Hx psychosis,not current Attention Span/Concentration: Short Span Language: Naming Impaired Fund of Knowledge: Poor fund of knowledge Memory: Poor-immediate, Poor-recent, Poor-remote Suicidal Ideation: None Homicidal Ideation: None Insight: Poor Judgment: Poor Impulse Control: Poor Laboratory Tests Test 07/22/16 08:42 White Blood Count 14.6T/MM3 Red Blood Count 4.11M/MM3 Hemoglobin 12.3GM/DL Hematocrit 36.8% Mean Corpuscular Volume 89.5UM3 Mean Corpuscular Hemoglobin 29.9UUG Mean Corpuscular Hemoglobin Concent 33.4GM/DL RDW Standard Deviation 42.1FL Platelet Count 131T/MM3 Mean Platelet Volume 10.0UM3 Immature Granulocyte % (Auto) 0.2% Neutrophils (%) (Auto) 40.7% Lymphocytes (%) (Auto) 54.6% Monocytes (%) (Auto) 4.0% Eosinophils (%) (Auto) 0.3% Basophils (%) (Auto) 0.2% Absolute Immature Granulocyte (auto 0.03T/MM3 Absolute Neutrophils (auto) 5.9T/MM3 Absolute Lymphocytes (auto) 8.0T/MM3 Absolute Monocytes (auto) 0.6T/MM3 Absolute Eosinophils (auto) 0.0T/MM3 Absolute Basophils (auto) 0.0T/MM3 Turbidity < 20 Sodium Level 142MEQ/L Potassium Level 3.9MEQ/L Chloride Level 103MEQ/L Carbon Dioxide Level 26MEQ/L Anion Gap 13MEQ/L Blood Urea Nitrogen 20.0MG/DL Creatinine 1.2MG/DL Glomerular Filtration Rate Calc 43 BUN/Creatinine Ratio 17RATIO Glucose Level 230MG/DL Calculated Osmolality 283MOSM/KG Calcium Level 9.4MG/DL Icterus Index < 2 Chemistry Specimen Hemolysis < 15 Assessment and Plan (1) Major neurocognitive disorder Assessment: with behavioral disturbance 07/06/16: Discontinue Seroquel due to concerns of urinary retention; start Risperdal 0.25mg PO BID alternatively. Discussed this with /DPOA, who is in agreement with plan after discussion of risks/benefits. 07/07/16: Cont current medications 07/08/16: Encourage fluid intake. Obtain UA today. 07/09/16: Patient has been started on Rocephin by hospitalist for UTI. Hold Celexa, Lorazepam, Senna, Glycol. RN please use Haldol for PRN first rather than Lorazepam 07/10/16: Increase Risperidone to 0.5mg BID. Patient will benefit from re- hydration with IVF since she has poor intake 07/11/16 Continue current care 07/12/16 Continue current care 07/13/16 Continue current care 07/14/16: Continue current care - will discuss use of Levofloxacin with medical team. Family wishes to continue encouraging PO intake rather than IV fluids as recommended by medical team. 07/15/16: Improving overall - suspect behavior will continue to improve as course of antibiotics progresses and is completed. 07/16/16: Will replace Ruiz as it is believed straight cath multiple times daily likely contributing to agitation. Sleep improved. Will reassess mood/ cooperation after AM meds. May need to take AM meds prior to attempting cares. 07/17/16: Patient doing well today; continue current care and monitor for any continued lability or combativeness today. 07/18/16: Monitor behavior as patient finishes course of Levaquin. Suggest further reassessment of goals of care along with ; he again states today that he does not feel patient will tolerate IV fluids though poor PO intake is concerning. Continue current medications for the time being. 07/19/16: Start Mirtazapine to target appetite hoping to improve intake. Will use soluble tabs to avoid adherence. Will also switch the Risperidone to dissolvable. 07/20/16: Continue mirtazapine (has just received one dose thus far) and risperidone for now. Monitor urinary retention. She just completed a course of Levaquin also it appears. Met w and discussed all of this. Suggested considering hospice care in the home if he wishes to take her home. 07/21/16: Discharge patient tomorrow back to [place].UA today 07/22/16: Discharge patient today back to [facility]. Patient had diarrhea this morning and will change Mirilax to PRN. (2) Delirium due to general medical condition (3) UTI (urinary tract infection) (4) CVA (cerebral vascular accident) (5) Chronic lymphocytic leukemia (6) CKD (chronic kidney disease), stage III (7) Hypertension (8) Leukocytosis (9) Urinary retention Cont. current psych. meds JOHN TARANGO MD July 22, 2016 11:10
--- NOTE | 2016-07-22 12:38 | NUR ---
Discharge Report called to "Terri" ; unit contact information given along with plans for follow-up care with PCP and MH professional as outlined in PHS. No pending labs on discharge. pt discharged back to [facility]. all personal belongings were returned. pt is in stable condition upon discharge. pt taken via wheelchair accompanied by [facility] staff, and facility electric mule driver.
== END 2016-07-22 11:15 | DRG 884 ==
LOC: ED 11:26 → GEN 14:50
PROVIDERS: ADMIT Psychiatry & Neurology Psychiatry; ATTEND Psychiatry & Neurology Psychiatry
DX: F03.91 Unspecified dementia, unspecified severity, with behavioral disturbance (principal); C91.10 Chronic lymphocytic leukemia of B-cell type not having achieved remission; N39.0 Urinary tract infection, site not specified; F41.9 Anxiety disorder, unspecified; R33.9 Retention of urine, unspecified; I12.9 Hypertensive chronic kidney disease with stage 1 through stage 4 chronic kidney disease, or unspecified chronic kidney disease; N18.3 Chronic kidney disease, stage 3 (moderate); D72.829 Elevated white blood cell count, unspecified; Z66 Do not resuscitate; K58.9 Irritable bowel syndrome, unspecified; G47.30 Sleep apnea, unspecified; Z86.73 Personal history of transient ischemic attack (TIA), and cerebral infarction without residual deficits
CPT/HCPCS: 36415; 51701; 80048; 80053; 80061; 80306; 80307; 81001; 81003; 82607; 82746; 83036; 84443; 85025; 87077; 87086; 87186; 93005; 96372